=== PATIENT | male | born 1980 | race Hispanic/Latino ===

== ENCOUNTER 2020-01-02 16:43 | Emergency (ER) | payer OTHER ==
--- NOTE | 2020-01-02 17:59 | EDPHYS ---
Physician Documentation [facility] Name: Seferino Park Age: 39 yrs Sex: Male : 1980 Arrival Date: 01/02/2020 Time: 16:44 Bed 25 Private MD: ED Physician Karl Parham HPI: 01/02 21:26 This 39 yrs old Male presents to ER via Ambulatory with complaints of Vision tw4 Problem. 21:26 The patient is experiencing decreased vision, floaters, The patient sustained None. to tw4 the right eye. Onset: The symptoms/episode began/occurred today. Duration: the symptoms are continuous. Aggravated by nothing. Alleviated by nothing. Severity of symptoms: At their worst the symptoms were moderate in the emergency department the symptoms are unchanged. The patient has not experienced similar symptoms in the past. Historical: - Allergies: 16:50 No Known Allergies; hb - Home Meds: 16:50 amlodipine 10 mg tab 1 tab once daily [Active]; buspirone 10 mg Oral tab 1 tab 2 times hb per day [Active]; doxazosin 8 mg Oral tab 1 tab once daily [Active]; lisinopril 40 mg Oral tab 1 tab once daily [Active]; - PMHx: 16:50 Anxiety; Depression; Hyperlipidemia; Hypertension; hb - PSHx: 16:50 testicular repair; hb - Immunization history:: Adult Immunizations up to date. - Coronavirus screen:: The patient has NOT traveled to [place] in the past 14 days. The patient has NOT had contact with known/suspected case of Coronavirus? Proceed with normal triage procedures. - Social history:: Smoking status: Patient denies any tobacco usage or history of. - Ebola Screening: : No symptoms or risks identified at this time. ROS: 21:26 Constitutional: Negative for fever, chills, and weight loss. tw4 21:26 Cardiovascular: Negative for chest pain, palpitations, and edema, Respiratory: Negative for shortness of breath, cough, wheezing, and pleuritic chest pain, Abdomen/GI: Negative for abdominal pain, nausea, vomiting, diarrhea, and constipation, Back: Negative for injury and pain, MS/Extremity: Negative for injury and deformity. 21:26 Eyes: Positive for blurry vision, vision loss, visual disturbance, Negative for discharge, foreign body sensation, matting, pain, photophobia, redness, sunken appearance. Exam: 21:26 Visual Acuity: I have reviewed the nursing documentation. tw4 21:26 Constitutional: This is a well developed, well nourished patient who is awake, alert, and in no acute distress. Head/Face: Normocephalic, atraumatic. 21:26 Eyes: Pupils: equal, round, and reactive to light and accomodation, Extraocular movements: no acute changes, Conjunctiva: normal, Corneas: are normal, Sclera: no appreciated abnormality, Anterior chamber: normal, funduscopic exam reveals retinal detachment is noted, on the right. Vital Signs: 16:50 BP 142 / 110; Pulse 61; Resp 16; Temp 97.9; Pulse Ox 100% on R/A; Weight 136.08 kg; hb Height 6 ft. (182.88 cm); Pain 0/10; 17:15 BP 142 / 01; Pulse 61; Pulse Ox 99% on R/A; vc 17:45 BP 126 / 80; Pulse 59; Resp 15; Pulse Ox 99% on R/A; Pain 0/10; vc 16:50 Body Mass Index 40.69 (136.08 kg, 182.88 cm) hb Visual Acuity: 17:19 Left Eye Visual acuity 20/13, ; Both Eyes Visual acuity 20/15; With Lenses; Unable to vc read chart with right eye MDM: 16:57 Patient medically screened. tw4 21:26 Differential diagnosis: Corneal abrasion of Corneal ulcer of Foreign body in. Data tw4 reviewed: vital signs, nurses notes. Data interpreted: Pulse oximetry: Interpretation: normal. Counseling: I had a detailed discussion with the patient and/or guardian regarding: the historical points, exam findings, and any diagnostic results supporting the discharge/admit diagnosis. Physician consultation: Rebel Prasad MD regarding patient's condition, and will see patient in office, tomorrow. Special discussion: I discussed with the patient/guardian in detail that at this point there is no indication for admission to the hospital. It is understood, however, that if the symptoms persist or worsen the patient needs to return immediately for re-evaluation. Administered Medications: No medications were administered Disposition: 01/02/20 17:50 Discharged to Home. Impression: Other retinal detachments. - Condition is Stable. - Discharge Instructions: Retinal Detachment, Visual Disturbances. - Medication Reconciliation Form, Thank You Letter, Antibiotic Education, Prescription Opioid Use form. - Follow up: Rebel Prasad MD; When: Upon discharge from the Emergency Department; Reason: If symptoms return, Recheck today's complaints, Continuance of care, Re-evaluation by your physician. - Problem is new. - Symptoms have improved. Signatures: Andreina Mosley RN RN Karl Parham MD MD tw4 Lindsey Gustafson RN RN vc Corrections: (The following items were deleted from the chart) 17:58 17:50 01/02/2020 17:50 Discharged to Home. Impression: Other retinal detachments. vc Condition is Stable. Forms are Medication Reconciliation Form, Thank You Letter, Antibiotic Education, Prescription Opioid Use. Follow up: Rebel Prasad; When: Upon discharge from the Emergency Department; Reason: If symptoms return, Recheck today's complaints, Continuance of care, Re-evaluation by your physician. Problem is new. Symptoms have improved. tw4
--- NOTE | 2020-01-02 17:59 | ER ---
Nurse's Notes [facility] Name: Seferino Park Age: 39 yrs Sex: Male : 1980 Arrival Date: 01/02/2020 Time: 16:44 Bed 25 Private MD: Diagnosis: Other retinal detachments Presentation: 01/02 16:47 Presenting complaint: Patient states: "I had a floater in my right eye about an hour hb ago, then my vision became blurry in that eye. I saw an eye doctor for this a while back and she said I had something wrong with my retina but it wasn't bad enough for surgery yet." Denies pain. Transition of care: patient was not received from another setting of care. Onset of symptoms was January 02, 2020. Risk Assessment: Do you want to hurt yourself or someone else? Patient reports no desire to harm self or others. Initial Sepsis Screen: Does the patient meet any 2 criteria? No. Patient's initial sepsis screen is negative. Does the patient have a suspected source of infection? No. Patient's initial sepsis screen is negative. Care prior to arrival: None. 16:47 Method Of Arrival: Ambulatory hb 16:47 Acuity: ALEXIS 2 hb Triage Assessment: 17:23 General: Appears in no apparent distress. uncomfortable, Behavior is cooperative, vc appropriate for age, anxious. Pain: Denies pain. Historical: - Allergies: 16:50 No Known Allergies; hb - Home Meds: 16:50 amlodipine 10 mg tab 1 tab once daily [Active]; buspirone 10 mg Oral tab 1 tab 2 times hb per day [Active]; doxazosin 8 mg Oral tab 1 tab once daily [Active]; lisinopril 40 mg Oral tab 1 tab once daily [Active]; - PMHx: 16:50 Anxiety; Depression; Hyperlipidemia; Hypertension; hb - PSHx: 16:50 testicular repair; hb - Immunization history:: Adult Immunizations up to date. - Coronavirus screen:: The patient has NOT traveled to [place] in the past 14 days. The patient has NOT had contact with known/suspected case of Coronavirus? Proceed with normal triage procedures. - Social history:: Smoking status: Patient denies any tobacco usage or history of. - Ebola Screening: : No symptoms or risks identified at this time. Screenin:21 Abuse screen: Denies threats or abuse. Nutritional screening: No deficits noted. vc Tuberculosis screening: No symptoms or risk factors identified. Fall Risk None identified. Assessment: 17:24 General: Appears in no apparent distress. uncomfortable, Behavior is cooperative, vc appropriate for age, anxious. Pain: Denies pain. Neuro: No deficits noted. Cardiovascular: Patient's skin is warm and dry. Respiratory: Airway is patent Respiratory effort is even, unlabored, Respiratory pattern is regular, symmetrical. GI: No deficits noted. : No signs and/or symptoms were reported regarding the genitourinary system. EENT: Reports seeing floaters when he first awoke, now unable to see out of right eye. Patient states he can make out colors but that is it.. Derm: Skin temperature is warm. Musculoskeletal: Circulation, motion, and sensation intact. Capillary refill < 3 seconds, Range of motion: intact in all extremities. 17:45 Reassessment: Patient and/or family updated on plan of care and expected duration. Pain vc level reassessed. Patient is alert, oriented x 3, equal unlabored respirations, skin warm/dry/pink. Provider at bedside. Patient denies pain at this time. Vital Signs: 16:50 BP 142 / 110; Pulse 61; Resp 16; Temp 97.9; Pulse Ox 100% on R/A; Weight 136.08 kg; hb Height 6 ft. (182.88 cm); Pain 0/10; 17:15 BP 142 / 01; Pulse 61; Pulse Ox 99% on R/A; vc 17:45 BP 126 / 80; Pulse 59; Resp 15; Pulse Ox 99% on R/A; Pain 0/10; vc 16:50 Body Mass Index 40.69 (136.08 kg, 182.88 cm) hb Visual Acuity: 17:19 Left Eye Visual acuity 20/13, ; Both Eyes Visual acuity 20/15; With Lenses; Unable to vc read chart with right eye ED Course: 16:44 Patient arrived in ED. ag5 16:49 Triage completed. hb 16:50 Arm band placed on. hb 16:57 Kalr Parham MD is Attending Physician. tw4 17:05 Lindsey Gustafson RN is Primary Nurse. vc 17:23 Patient has correct armband on for positive identification. vc 17:49 No provider procedures requiring assistance completed. Patient did not have IV access vc during this emergency room visit. 17:50 Rebel Prasad MD is Referral Physician. tw4 Administered Medications: No medications were administered Outcome: 17:50 Discharge ordered by MD. domínguez 17:56 Discharged to home vc 17:56 Condition: good 17:56 Discharge instructions given to patient, Instructed on discharge instructions, follow up and referral plans. Demonstrated understanding of instructions, follow-up care. 17:58 Patient left the ED. vc Signatures: Andreina Mosley, RN RN Karl Parham MD MD tw4 Kaz Oliva ag5 Lindsey Gustafson RN RN
[2020-01-02 20:28] VITALS: TEMP 97.9
[2020-01-02 20:29] VITALS: O2SAT 99
[2020-01-02 20:31] VITALS: BP 126/80
== END 2020-01-02 17:58 | disposition home or self-care (01) ==
LOC: ER 16:43
DX: H33.8 Other retinal detachments (principal); I10 Essential (primary) hypertension; E78.5 Hyperlipidemia, unspecified; F41.8 Other specified anxiety disorders
CPT/HCPCS: 99282

== ENCOUNTER 2021-03-15 14:26 | Emergency (ER) | payer BC, OTHER ==
--- OUTSIDE RECORDS SUMMARY | 2021-03-15 14:29 | XMS REPORT | Continuity of Care Document ---
:1980 Author Organization [facility] t Address [address] [place] [address] Care Team Providers Name Role Phone Chely Nielsen NP Attending Clinician Problems This patient has no known problems. Allergies, Adverse Reactions, Alerts This patient has no known allergies or adverse reactions. Medications This patient has no known medications. Procedures This patient has no known procedures. Encounters Start End Encounter Admission Attending Care Care Encounter Source Date/Time Date/Time Type Type Clinicians Facility Department ID 2021-01-28 2021-01-28 Outpatient [facility] [id number] [facility] 2020-10-29 2020-10-29 Outpatient [facility] [id number] [facility] 2020-09-27 2020-09-27 Outpatient [facility] [id number] [facility] 2020-06-10 2020-06-10 Emergency [facility] [id number] 11:06:15 11:47:00 [facility] [id number] [place] [id number] [place] [id number] Results This patient has no known results.
--- NOTE | 2021-03-15 15:35 | ER ---
Nurse's Notes [facility] Name: Seferino Park Jr Age: 41 yrs Sex: Male : 1980 Arrival Date: 03/15/2021 Time: 14:27 Bed 25 Private MD: Jad Torre Diagnosis: Anxiety disorder, unspecified Presentation: 03/15 14:36 Chief complaint: Anxiety x 3 days. Denies SOB/pain. Coronavirus screen: At this time, hb the client does not indicate any symptoms associated with coronavirus-19. Ebola Screen: No symptoms or risks identified at this time. Initial Sepsis Screen: Does the patient meet any 2 criteria? No. Patient's initial sepsis screen is negative. Does the patient have a suspected source of infection? No. Patient's initial sepsis screen is negative. Risk Assessment: Do you want to hurt yourself or someone else? Patient reports no desire to harm self or others. Onset of symptoms was March 13, 2021. 14:36 Method Of Arrival: Ambulatory hb 14:36 Acuity: ALEXIS 3 hb Historical: - Allergies: 14:39 No Known Allergies; hb - Home Meds: 14:39 amlodipine 10 mg tab 1 tab once daily [Active]; doxazosin 8 mg Oral tab 1 tab once hb daily [Active]; lisinopril 40 mg Oral tab 1 tab once daily [Active]; Bystolic 10 mg oral tab 1 tab once daily [Active]; Pravachol 20 mg Oral tab 1 tab once daily [Active]; amitriptyline 10 mg Oral tab [Active]; - PMHx: 14:39 Anxiety; Depression; Hyperlipidemia; Hypertension; hb - PSHx: 14:39 testicular repair; hb - Immunization history:: Adult Immunizations up to date. - Social history:: Smoking status: Patient denies any tobacco usage or history of. Screenin:59 Abuse screen: Denies threats or abuse. Nutritional screening: No deficits noted. kg Tuberculosis screening: No symptoms or risk factors identified. Fall Risk None identified. No fall in past 12 months (0 pts). No secondary diagnosis (0 pts). No IV (0 pts). Ambulatory Aid- None/Bed Rest/Nurse Assist (0 pts). Gait- Normal/Bed Rest/Wheelchair (0 pts) Mental Status- Oriented to own ability (0 pts). Total Marc Fall Scale indicates No Risk (0-24 pts). Assessment: 15:15 General: Appears in no apparent distress. Behavior is calm, cooperative, appropriate kg for age, quiet. Pain: Denies pain. Neuro: No deficits noted. Neuro: Reports Pt states, "I have a lot of anxiety right now". Cardiovascular: No deficits noted. Cardiovascular: Heart tones S1 S2. Respiratory: No deficits noted. Breath sounds are clear bilaterally. GI: No deficits noted. : No deficits noted. EENT: No deficits noted. Derm: No deficits noted. Musculoskeletal: No deficits noted. Vital Signs: 14:36 BP 159 / 110; Pulse 83; Resp 18; Temp 98.9; Pulse Ox 100% ; Pain 0/10; hb 16:06 BP 130 / 80; Pulse 65; Resp 18; Pulse Ox 99% on R/A; kg ED Course: 14:27 Patient arrived in ED. am2 14:27 Jad Torre DO is Private Physician. am2 14:37 Triage completed. hb 14:39 Arm band placed on. hb 14:46 Anusha Parker FNP-C is PHCP. kb 14:46 George Simon MD is Attending Physician. kb 15:08 Rosie Angulo is Primary Nurse. kg 16:02 Patient has correct armband on for positive identification. Bed in low position. Call kg light in reach. Side rails up X 1. 16:03 No provider procedures requiring assistance completed. Patient did not have IV access kg during this emergency room visit. Administered Medications: 15:10 Drug: hydrOXYzine 25 mg Route: PO; kg 16:14 Follow up: Response: No adverse reaction; Marked relief of symptoms kg Outcome: 15:35 Discharge ordered by . kb 16:03 Discharged to home ambulatory. kg 16:03 Condition: good 16:03 Discharge instructions given to patient, Instructed on discharge instructions, follow up and referral plans. Demonstrated understanding of instructions, follow-up care. 16:12 Demonstrated understanding of medications, Prescriptions given X 1. kg 16:15 Patient left the ED. kg Signatures: Anusha Parker FNP-C FNP-Andreina Owen RN RN [facility] am2 Rosie Angulo kg
--- NOTE | 2021-03-15 15:35 | EDPHYS ---
Physician Documentation [facility] Name: Seferino Park Jr Age: 41 yrs Sex: Male : 1980 Arrival Date: 03/15/2021 Time: 14:27 Bed 25 Private MD: Jad Torre ED Physician George Simon HPI: 03/15 15:53 This 41 yrs old Male presents to ER via Ambulatory with complaints of Anxiety. kb 15:53 The patient presents to the emergency department with anxiety. Onset: The kb symptoms/episode began/occurred 3 day(s) ago. Past psychiatric history: Psychiatric medications include: Elavil. Associated signs and symptoms: Pertinent positives; anxiety. Severity of symptoms: At their worst the symptoms were moderate in the emergency department the symptoms are unchanged. The patient has experienced similar episodes in the past, several times. The patient has not recently seen a physician. Pt reports he has been under a lot of stress lately because he was out of work for a few months and is now having to live with his parents with his girlfriend and 2 toddlers. States he has been having more anxiety over the last 3 days and the more he thinks about it the more worked up he gets so he wanted to just get checked out. . Historical: - Allergies: 14:39 No Known Allergies; hb - Home Meds: 14:39 amlodipine 10 mg tab 1 tab once daily [Active]; doxazosin 8 mg Oral tab 1 tab once hb daily [Active]; lisinopril 40 mg Oral tab 1 tab once daily [Active]; Bystolic 10 mg oral tab 1 tab once daily [Active]; Pravachol 20 mg Oral tab 1 tab once daily [Active]; amitriptyline 10 mg Oral tab [Active]; - PMHx: 14:39 Anxiety; Depression; Hyperlipidemia; Hypertension; hb - PSHx: 14:39 testicular repair; hb - Immunization history:: Adult Immunizations up to date. - Social history:: Smoking status: Patient denies any tobacco usage or history of. ROS: 15:52 Constitutional: Negative for fever, chills, and weight loss, Cardiovascular: Negative kb for chest pain, palpitations, and edema, Respiratory: Negative for shortness of breath, cough, wheezing, and pleuritic chest pain, Abdomen/GI: Negative for abdominal pain, nausea, vomiting, diarrhea, and constipation, MS/Extremity: Negative for injury and deformity, Skin: Negative for injury, rash, and discoloration, Neuro: Negative for headache, weakness, numbness, tingling, and seizure. 15:52 Psych: Positive for anxiety. Exam: 15:52 Constitutional: This is a well developed, well nourished patient who is awake, alert, kb and in no acute distress. Head/Face: Normocephalic, atraumatic. Cardiovascular: Regular rate and rhythm with a normal S1 and S2. No gallops, murmurs, or rubs. No pulse deficits. Respiratory: Respirations even and unlabored. No increased work of breathing, no retractions or nasal flaring. Abdomen/GI: Soft, non-tender. No distention Skin: Warm, dry with normal turgor. Normal color. MS/ Extremity: Pulses equal, no cyanosis. Neurovascular intact. Full, normal range of motion. Neuro: Awake and alert, GCS 15, oriented to person, place, time, and situation. Moves all extremities. Normal gait. 15:52 Constitutional: The patient appears anxious. 15:59 ECG was reviewed by the Attending Physician. kb Vital Signs: 14:36 BP 159 / 110; Pulse 83; Resp 18; Temp 98.9; Pulse Ox 100% ; Pain 0/10; hb 16:06 BP 130 / 80; Pulse 65; Resp 18; Pulse Ox 99% on R/A; kg MDM: 14:47 Patient medically screened. kb 15:51 Data reviewed: vital signs, nurses notes. Data interpreted: Pulse oximetry: on room air kb is 100 %. Interpretation: normal. Counseling: I had a detailed discussion with the patient and/or guardian regarding: the historical points, exam findings, and any diagnostic results supporting the discharge/admit diagnosis, the need for outpatient follow up, a family practitioner, to return to the emergency department if symptoms worsen or persist or if there are any questions or concerns that arise at home. 03/15 15:04 Order name: EKG; Complete Time: 15:04 kb 03/15 15:04 Order name: EKG - Nurse/Tech; Complete Time: 15:57 kb EC:59 Rate is 66 beats/min. Rhythm is regular. QRS [place] is Normal. MI interval is normal at kb 162 msec. QRS interval is normal at 84 msec. QT interval is normal at 388 msec. Administered Medications: 15:10 Drug: hydrOXYzine 25 mg Route: PO; kg 16:14 Follow up: Response: No adverse reaction; Marked relief of symptoms kg Disposition: 03/16 08:05 Co-signature as Attending Physician, George Simon MD I agree with the assessment and [facility] plan of care. Disposition: 03/15/21 15:35 Discharged to Home. Impression: Anxiety disorder, unspecified. - Condition is Stable. - Discharge Instructions: Panic Attacks, [id number], Generalized Anxiety Disorder. - Prescriptions for Hydroxyzine HCl 25 mg Oral Tablet - take 1 tablet by ORAL route every 6 hours As needed; 12 tablet. - Medication Reconciliation Form, Thank You Letter, Antibiotic Education, Prescription Opioid Use form. - Follow up: Emergency Department; When: As needed; Reason: Worsening of condition. Follow up: Private Physician; When: 2 - 3 days; Reason: Recheck today's complaints, Continuance of care, Re-evaluation by your physician. Signatures: Anusha Parker, CHETAN LUCAS-George Malone MD MD [facility] Andreina Mosley, DANNIELLE RN Rosie Angulo Corrections: (The following items were deleted from the chart) 03/15 16:15 15:35 03/15/2021 15:35 Discharged to Home. Impression: Anxiety disorder, unspecified. kg Condition is Stable. Forms are Medication Reconciliation Form, Thank You Letter, Antibiotic Education, Prescription Opioid Use. Follow up: Emergency Department; When: As needed; Reason: Worsening of condition. Follow up: Private Physician; When: 2 - 3 days; Reason: Recheck today's complaints, Continuance of care, Re-evaluation by your physician. kb
[2021-03-15] MEDS ORDERED: hydrOXYzine HCL 25 MG TAB ONE (15:36)
[2021-03-15 16:45] VITALS: TEMP 98.9
[2021-03-15 16:47] VITALS: BP 130/80; O2SAT 99
--- NOTE | 2021-03-16 07:24 | EKG ---
Test Date: 2021-03-15 Test Time: 15:23:49 Recruiter Manager: VITO Nice MEASUREMENT RESULTS: Intervals: Rate: 66 ID: [id number] QRSD: 84 QT: 388 QTc: 406 [place]: P: 0 ID: [id number] QRS: 22 T: 4 INTERPRETIVE STATEMENTS: Normal sinus rhythm Anterior infarct, age undetermined Abnormal ECG Compared to ECG 12/03/2016 21:25:59 No significant changes Electronically Signed On 03-16-21 07:21:58 CDT by Cameron Garcia
== END 2021-03-15 16:15 | disposition home or self-care (01) ==
LOC: ER 14:26
DX: F41.9 Anxiety disorder, unspecified (principal); F32.9 Major depressive disorder, single episode, unspecified; E78.5 Hyperlipidemia, unspecified; I10 Essential (primary) hypertension
CPT/HCPCS: 93005; 99283

== ENCOUNTER 2021-12-03 11:17 | Emergency (ER) | payer BC ==
--- OUTSIDE RECORDS SUMMARY | 2021-12-03 11:19 | XMS REPORT | Continuity of Care Document ---
:1980 Author Organization Formerly [facility] t Address [address] [place] [address] Care Team Providers Name Role Phone Chely Nielsen NP Attending Clinician Payers Payer Name Policy Type Policy Number Effective Date Expiration Date S ource Problems Condition Condition Condition Status Onset Resolution Last Treating Co mments Source Name Details Category Date Date Treatment Clinician Date No known No known Disease Unive rs active active ity of problems problems [facility] Allergies, Adverse Reactions, Alerts Allergy Allergy Status Severity Reaction(s) Onset Inactive Treating Comm ents Source Name Type Date Date Clinician NO KNOWN Drug Active Univers ALLERGIE Class it of [facility] Social History Social Habit Start Date Stop Date Quantity Comments Source [facility] to [facility]2 [facility] Smoking Status Start Date Stop Date Source Unknown if ever smoked Universit y [facility] Medications Ordered Filled Start Stop Current Ordering Indication Dosage Frequency Signature Comments Components Source Medication Medication Date Date Medication? Clinician (SIG) Name Name No known No Univers medications [facility] Vital Signs Vital Name Observation Time Observation Value Comments Source Systolic blood 2020-06-10 16:29:00 147 mm[Hg] Univer sity of pressure [facility] Diastolic blood 2020-06-10 16:29:00 101 mm[Hg] Unive rsity of pressure [facility] Heart rate 2020-06-10 16:29:00 79 /min Universi ty [facility] Respiratory rate 2020-06-10 16:29:00 17 /min Univ ersity of [facility] Oxygen saturation in 2020-06-10 16:29:00 96 /min University of Arterial blood by [facility] Pulse oximetry Branch Body temperature 2020-06-10 15:56:00 38.28 Zoe [facility] ersity of [facility] Body height 2020-06-10 15:56:00 182.9 cm [facility] Body weight 2020-06-10 15:56:00 136.079 kg [facility] BMI 2020-06-10 15:56:00 40.69 kg/m2 Universi ty of [facility] Branch Systolic blood 2020-06-10 16:29:00 147 mm[Hg] Univer sity of pressure [facility] Branch Diastolic blood 2020-06-10 16:29:00 101 mm[Hg] Unive rsity of pressure [facility] Heart rate 2020-06-10 16:29:00 79 /min Universi ty of [facility] Respiratory rate 2020-06-10 16:29:00 17 /min [facility] ersity of [facility] Oxygen saturation in 2020-06-10 16:29:00 96 /min University of Arterial blood by [facility] Pulse oximetry Branch Body temperature 2020-06-10 15:56:00 38.28 Zoe [facility] ersity of [facility] Body height 2020-06-10 15:56:00 182.9 cm [facility] Body weight 2020-06-10 15:56:00 136.079 kg [facility] BMI 2020-06-10 15:56:00 40.69 kg/m2 Universi ty of [facility] Procedures Procedure Date / Time Performed Performing Clinician [facility] NOTICE OF PRIVACY 2020-06-10 15:39:42 Doctor Unassigned, No [facility] [place] [facility] Name [facility] CONSENT/REFUSAL FOR 2020-06-10 15:39:21 Doctor Unassigned, No [facility] AND Name Medical Branch TREATMENT Encounters Start End Encounter Admission Attending Care Care Encounter Source Date/Time Date/Time Type Type Clinicians Facility Department ID 2021-11-13 2021-11-13 ambulatory [facility] [id number] 2021-11-12 2021-11-12 ambulatory [facility] [id number] [facility] 2021-10-15 2021-10-15 ambulatory [facility] [id number] [facility] 2021-09-04 2021-09-04 Outpatient [facility] [id number] [facility] 2021-05-31 2021-05-31 Outpatient [facility] [id number] [facility] 2021-03-22 2021-03-22 Outpatient [facility] [id number] [facility] 2021-03-18 2021-03-18 Outpatient [facility] [id number] [facility] 2021-01-28 2021-01-28 Outpatient [facility] [id number] [facility] 2020-10-29 2020-10-29 Outpatient [facility] [id number] [facility] 2020-09-27 2020-09-27 Outpatient [facility] [id number] [facility] 2020-06-10 2020-06-10 [place] [id number] Univers 11:06:15 11:47:00 [id number] [id number] [facility] [id number] [facility] 084 Branch 2020-06-10 2020-06-10 Emergency [place], [facility] [id number] 11:06:15 11:47:00 [place] [id number] [place] [id number] [place] [id number] 2020-06-10 2020-06-10 Emergency X [facility] ERT [id number] Univers 10:39:00 10:39:00 [facility] Results This patient has no known results.
[2021-12-03] MEDS ORDERED: NA CHLORIDE 0.9% 1,000 ML ONE (12:33)
[2021-12-03 12:48] LABS: Hematocrit 41.5 % (39.6-49.0); Lymphocytes % 31.6 % (15.3-44.8); MPV 7.7 fL (7.6-11.3); RBC Red Blood Cell Count 4.72 M/uL (4.33-5.43)
[2021-12-03 12:49] LABS: Protime INR 1.03
[2021-12-03] MEDS ORDERED: ASPIRIN 81 MG CHEWABLE TABLET ONE (12:54)
--- NOTE | 2021-12-03 13:04 | RAD REPORT ---
EXAM DESCRIPTION: Keith Single View12/03/2021 12:57 pm CLINICAL HISTORY: cough COMPARISON: none FINDINGS: The lungs appear clear of acute infiltrate. The heart is normal size IMPRESSION: No acute abnormalities displayed
[2021-12-03 13:10] LABS: ALT/SGPT 43 U/L (12-78); AST/SGOT 21 U/L (15-37); Albumin 3.8 g/dL (3.4-5.0); Alkaline Phosphatase 99 U/L (45-117); BUN Blood Urea Nitrogen 16 mg/dL (7-18); Bicarbonate 28 mmol/L (21-32); Bilirubin Direct < 0.1 mg/dL (0-0.2); Bilirubin Total 0.4 mg/dL (0.2-1.0); Glucose Level 107 mg/dL (74-106); Lipase 50 U/L (73-393); Magnesium 2.2 mg/dL (1.8-2.4); NT PRO-BNP 47 pg/mL (<125); Protein, Total 8.5 g/dL (6.4-8.2); Sodium Level 136 mmol/L (136-145)
--- NOTE | 2021-12-03 14:22 | ER ---
Nurse's Notes [facility] Name: Seferino Park Jr Age: 41 yrs Sex: Male : 1980 Arrival Date: 12/03/2021 Time: 11:25 Bed 26 Private MD: Diagnosis: Palpitations;Dizziness and giddiness;Obesity, unspecified Presentation: 12/03 11:35 Chief complaint: Patient states: Dizziness when ambulating and feeling like heart is ww beating out of his chest at times. Patient states he isnt sleeping well and has been under stress at home. Coronavirus screen: Vaccine status: Patient reports receiving the 2nd dose of the covid vaccine. Client denies travel out of the [place] in the last 14 days. Ebola Screen: Patient negative for fever greater than or equal to 101.5 degrees Fahrenheit, and additional compatible Ebola Virus Disease symptoms Patient denies exposure to infectious person. Patient denies travel to an Ebola-affected area in the 21 days before illness onset. Initial Sepsis Screen: Does the patient meet any 2 criteria? No. Patient's initial sepsis screen is negative. Does the patient have a suspected source of infection? No. Patient's initial sepsis screen is negative. Risk Assessment: Do you want to hurt yourself or someone else? Patient reports no desire to harm self or others. Onset of symptoms was December 03, 2021. 11:35 Method Of Arrival: Ambulatory ww 11:35 Acuity: ALEXIS 3 ww Triage Assessment: 11:35 General: Appears in no apparent distress. comfortable, Behavior is calm, cooperative, ww appropriate for age. Pain: Denies pain. EENT: Reports dizziness. Neuro: Level of Consciousness is awake, alert, obeys commands, Oriented to person, place, time, situation, Speech is normal, Reports dizziness. Cardiovascular: No deficits noted. Denies chest pain, Capillary refill < 3 seconds Patient's skin is warm and dry. Respiratory: Airway is patent Respiratory effort is even, unlabored, Respiratory pattern is regular, symmetrical. GI: No deficits noted. No signs and/or symptoms were reported involving the gastrointestinal system. : No deficits noted. No signs and/or symptoms were reported regarding the genitourinary system. Derm: Skin is intact, Skin is pink, warm \T\ dry. Musculoskeletal: No deficits noted. No signs and/or symptoms reported regarding the musculoskeletal system. Circulation, motion, and sensation intact. Historical: - Allergies: 11:37 No Known Allergies; ww - Home Meds: 11:37 amitriptyline 10 mg Oral tab [Active]; amlodipine 10 mg tab 1 tab once daily [Active]; ww Pravachol 20 mg Oral tab 1 tab once daily [Active]; nebivolol 20 mg oral tab 1 tab once daily [Active]; lisinopril-hydrochlorothiazide 20-25 mg oral tab 1 tab once daily [Active]; - PMHx: 11:37 Anxiety; Depression; Hypertension; Hyperlipidemia; ww - PSHx: 11:37 retinal detachment SX x 2; ww - Immunization history:: Client reports receiving the 2nd dose of the Covid vaccine. - Social history:: Smoking status: Patient denies any tobacco usage or history of. Screenin:41 Abuse screen: Denies threats or abuse. Denies injuries from another. Nutritional ww screening: No deficits noted. Tuberculosis screening: No symptoms or risk factors identified. Fall Risk None identified. Assessment: 12:02 General: Appears in no apparent distress. comfortable, Behavior is anxious. Pain: ab2 Denies pain. Neuro: No deficits noted. Level of Consciousness is awake, alert, obeys commands, Oriented to person, place, time, situation, Appropriate for age Sheet Folder are equal bilaterally Moves all extremities. Gait is steady, Speech is normal, Facial symmetry appears normal, Reports dizziness. Cardiovascular: No deficits noted. Denies chest pain, shortness of breath, Heart tones S1 S2 present Patient's skin is warm and dry. Rhythm is sinus rhythm Chest pain is denied. Respiratory: No deficits noted. Airway is patent Breath sounds are clear bilaterally. GI: No deficits noted. No signs and/or symptoms were reported involving the gastrointestinal system. Abdomen is round non-distended, Abd is soft and non tender Patient currently denies abdominal pain. : No deficits noted. No signs and/or symptoms were reported regarding the genitourinary system. EENT: No deficits noted. No signs and/or symptoms were reported regarding the EENT system. Derm: No deficits noted. No signs and/or symptoms reported regarding the dermatologic system. Musculoskeletal: No deficits noted. No signs and/or symptoms reported regarding the musculoskeletal system. 14:18 Reassessment: Patient states symptoms have improved. Pt resting in bed awaiting results ab2 from doctor. Vital Signs: 11:35 BP 137 / 97; Pulse 60; Resp 18; Temp 96.9; Pulse Ox 100% on R/A; Weight 136.08 kg; ww Height 6 ft. 0 in. (182.88 cm); Pain 0/10; 12:04 BP 132 / 89; Pulse 55; Resp 18; Pulse Ox 98% on R/A; ab2 13:02 BP 141 / 78; Pulse 69; Resp 16; Pulse Ox 100% on R/A; ab2 14:00 BP 118 / 79; Pulse 55; Resp 16; Pulse Ox 99% on R/A; ab2 11:35 Body Mass Index 40.69 (136.08 kg, 182.88 cm) ww ED Course: 11:25 Patient arrived in ED. am2 11:35 Arm band placed on right wrist. ww 11:37 Triage completed. ww 12:01 Patient has correct armband on for positive identification. Placed in gown. Bed in low ww position. Call light in reach. Side rails up X 1. machine operator replanter on. Pulse ox on. NIBP on. 12:02 Reid Myers is Primary Nurse. ab2 12:03 No provider procedures requiring assistance completed. ab2 12:21 George Simon MD is Attending Physician. jody 12:44 Inserted saline lock: 18 gauge in right antecubital area, using aseptic technique. ab2 Blood collected. 12:45 Initial lab(s) drawn, by ED staff, sent to lab. EKG done, by ED staff, reviewed by marcela Simon MD. 12:57 XRAY Chest (1 view) In Process Unspecified. EDMS 14:22 Cameron Garcia MD is Referral Physician. jody 14:56 IV discontinued, intact, bleeding controlled, No redness/swelling at site. Pressure jl7 dressing applied. Administered Medications: 12:43 Drug: NS 0.9% 1000 ml Route: IV; Rate: 1 bolus; Site: right antecubital; ab2 12:55 Drug: Aspirin Chewable Tablet 162 mg Route: PO; ab2 Outcome: 14:22 Discharge ordered by . jody 14:55 Discharged to home ambulatory. jl7 14:55 Condition: stable 14:55 Discharge instructions given to patient, Instructed on discharge instructions, follow up and referral plans. Demonstrated understanding of instructions, follow-up care. 14:56 Patient left the ED. jl7 Signatures: Dispatcher [employer] George Bauer MD MD cha Leal, Jahala RN RN jl7 Rachelle Tracy am2 Koki De Los Santos, RN RN ww Reid Myers2 Corrections: (The following items were deleted from the chart) 11:40 11:35 Pulse 60bpm; Resp 18bpm; Pulse Ox 100% RA; Temp 96.9F; 136.08 kg; Height 6 ft. 0 ww in.; BMI: 40.6; Pain 0/10; ww
--- NOTE | 2021-12-03 14:22 | EDPHYS ---
Physician Documentation [facility] Name: Seferino Park Jr Age: 41 yrs Sex: Male : 1980 Arrival Date: 12/03/2021 Time: 11:25 Bed 26 Private MD: CHIQUI Physician George Simon HPI: 12/03 12:48 This 41 yrs old Male presents to ER via Ambulatory with complaints of jdoy Dizziness, sweats. 12:48 The patient presents with dizziness, generalized weakness. Onset: The symptoms/episode jody began/occurred 1 day(s) ago. Context: occurred at home. 12:49 The patient presents with a history of heart racing. Context: The symptoms occur with jody light activity. Duration: The patient or guardian reports multiple episodes, with no pattern. Modifying factors: The symptoms are aggravated by nothing. The symptoms are alleviated by nothing. Modifying factors: The symptoms are alleviated by nothing, the symptoms are aggravated by nothing. Associated signs and symptoms: Pertinent positives: palpitations. Severity of symptoms: At their worst the symptoms were mild in the emergency department the symptoms are unchanged. Associated signs and symptoms: Pertinent positives: lightheadedness. Patient's baseline: Neuro: alert and fully oriented. Historical: - Allergies: 11:37 No Known Allergies; ww - Home Meds: 11:37 amitriptyline 10 mg Oral tab [Active]; amlodipine 10 mg tab 1 tab once daily [Active]; ww Pravachol 20 mg Oral tab 1 tab once daily [Active]; nebivolol 20 mg oral tab 1 tab once daily [Active]; lisinopril-hydrochlorothiazide 20-25 mg oral tab 1 tab once daily [Active]; - PMHx: 11:37 Anxiety; Depression; Hypertension; Hyperlipidemia; ww - PSHx: 11:37 retinal detachment SX x 2; ww - Immunization history:: Client reports receiving the 2nd dose of the Covid vaccine. - Social history:: Smoking status: Patient denies any tobacco usage or history of. ROS: 12:50 Constitutional: Negative for fever, chills, and weight loss, Eyes: Negative for injury, jody pain, redness, and discharge, ENT: Negative for injury, pain, and discharge, Neck: Negative for injury, pain, and swelling, Respiratory: Negative for shortness of breath, cough, wheezing, and pleuritic chest pain, Abdomen/GI: Negative for abdominal pain, nausea, vomiting, diarrhea, and constipation, Back: Negative for injury and pain, : Negative for injury, bleeding, discharge, and swelling, MS/Extremity: Negative for injury and deformity, Skin: Negative for injury, rash, and discoloration, Neuro: Negative for headache, weakness, numbness, tingling, and seizure, Psych: Negative for depression, anxiety, suicide ideation, homicidal ideation, and hallucinations, Allergy/Immunology: Negative for hives, rash, and allergies, Endocrine: Negative for neck swelling, polydipsia, polyuria, polyphagia, and marked weight changes. 12:50 Cardiovascular: Positive for palpitations. Exam: 12:50 Constitutional: This is a well developed, well nourished patient who is awake, alert, jody and in no acute distress. Head/Face: Normocephalic, atraumatic. Eyes: Pupils equal round and reactive to light, extra-ocular motions intact. Lids and lashes normal. Conjunctiva and sclera are non-icteric and not injected. Cornea within normal limits. Periorbital areas with no swelling, redness, or edema. ENT: Nares patent. No nasal discharge, no septal abnormalities noted. Tympanic membranes are normal and external auditory canals are clear. Oropharynx with no redness, swelling, or masses, exudates, or evidence of obstruction, uvula midline. Mucous membranes moist. Neck: Trachea midline, no thyromegaly or masses palpated, and no cervical lymphadenopathy. Supple, full range of motion without nuchal rigidity, or vertebral point tenderness. No Meningismus. Chest/axilla: Normal chest wall appearance and motion. Nontender with no deformity. No lesions are appreciated. Cardiovascular: Regular rate and rhythm with a normal S1 and S2. No gallops, murmurs, or rubs. Normal PMI, no JVD. No pulse deficits. Respiratory: Lungs have equal breath sounds bilaterally, clear to auscultation and percussion. No rales, rhonchi or wheezes noted. No increased work of breathing, no retractions or nasal flaring. Abdomen/GI: Soft, non-tender, with normal bowel sounds. No distension or tympany. No guarding or rebound. No evidence of tenderness throughout. Back: No spinal tenderness. No costovertebral tenderness. Full range of motion. Male : Normal genitalia with no discharge or lesions. Skin: Warm, dry with normal turgor. Normal color with no rashes, no lesions, and no evidence of cellulitis. MS/ Extremity: Pulses equal, no cyanosis. Neurovascular intact. Full, normal range of motion. Neuro: Awake and alert, GCS 15, oriented to person, place, time, and situation. Cranial nerves II-XII grossly intact. Motor strength 5/5 in all extremities. Sensory grossly intact. Cerebellar exam normal. Normal gait. Psych: Awake, alert, with orientation to person, place and time. Behavior, mood, and affect are within normal limits. 12:50 Musculoskeletal/extremity: Extremities: all appear grossly normal, with no appreciated pain with palpation, ROM: intact in all extremities, full active range of motion, full passive range of motion, Circulation is intact in all extremities. Sensation intact. Compartment Syndrome exam of affected extremity: is normal. Joints: All joints appear normal with full range of motion. Weight bearing: can bear weight with assistance only, DVT Exam: No signs of deep vein thrombosis. no pain, no swelling, no tenderness, negative Homans' sign noted on exam, no appreciated bluish discoloration, no erythema, no increased warmth. 12:56 ECG was reviewed by the Attending Physician. [facility] Vital Signs: 11:35 BP 137 / 97; Pulse 60; Resp 18; Temp 96.9; Pulse Ox 100% on R/A; Weight 136.08 kg; ww Height 6 ft. 0 in. (182.88 cm); Pain 0/10; 12:04 BP 132 / 89; Pulse 55; Resp 18; Pulse Ox 98% on R/A; ab2 13:02 BP 141 / 78; Pulse 69; Resp 16; Pulse Ox 100% on R/A; ab2 14:00 BP 118 / 79; Pulse 55; Resp 16; Pulse Ox 99% on R/A; ab2 11:35 Body Mass Index 40.69 (136.08 kg, 182.88 cm) ww MDM: 12:22 Patient medically screened. jody 12:52 Differential diagnosis: arrythmia, dehydration. Differential diagnosis: cardiac jody arrhythmia, generalized weakness, GI bleed, hypovolemia, idiopathic dizziness, vertigo. Data reviewed: vital signs, nurses notes, lab test result(s), EKG, radiologic studies, plain films. Data interpreted: quality assurance monitor body: rate is 55 beats/min, rhythm is regular, Pulse oximetry: on room air. Counseling: I had a detailed discussion with the patient and/or guardian regarding: the historical points, exam findings, and any diagnostic results supporting the discharge/admit diagnosis, lab results, radiology results, the need for outpatient follow up, for definitive care, a bitumastic applier, a family practitioner. 12/03 12:21 Order name: Basic Metabolic Panel; Complete Time: 13:39 [facility] 12/03 12:21 Order name: CBC with Diff; Complete Time: 13:39 [facility] 12/03 12:21 Order name: LFT's; Complete Time: 13:39 [facility] 12/03 12:21 Order name: Magnesium; Complete Time: 13:39 [facility] 12/03 12:21 Order name: NT PRO-BNP; Complete Time: 13:39 [facility] 12/03 12:21 Order name: PT-INR; Complete Time: 13:39 [facility] 12/03 12:21 Order name: Troponin HS; Complete Time: 13:39 [facility] 12/03 12:21 Order name: Lipase; Complete Time: 13:39 [facility] 12/03 12:53 Order name: DD; Complete Time: 14:21 bd 12/03 12:21 Order name: XRAY Chest (1 view); Complete Time: 13:39 [facility] 12/03 12:21 Order name: EKG; Complete Time: 12:22 [facility] 12/03 12:21 Order name: Cardiac monitoring; Complete Time: 12:42 12/03 12:21 Order name: EKG - Nurse/Tech; Complete Time: 12:44 [facility] 12/03 12:21 Order name: IV Saline Lock; Complete Time: 12:44 [facility] 12/03 12:21 Order name: Labs collected and sent; Complete Time: 12:44 [facility] 12/03 12:21 Order name: O2 Per Protocol; Complete Time: 12:44 [facility] 12/03 12:21 Order name: O2 Sat Monitoring; Complete Time: 12:44 [facility] EC:56 Rate is 59 beats/min. Rhythm is regular. QRS [place] is Normal. [place] interval is normal. QRS jody interval is normal. QT interval is normal. No Q waves. T waves are Normal. No ST changes noted. Clinical impression: Normal ECG and No evidence of ischemia. Interpreted by me. Reviewed by me. Administered Medications: 12:43 Drug: NS 0.9% 1000 ml Route: IV; Rate: 1 bolus; Site: right antecubital; ab2 12:55 Drug: Aspirin Chewable Tablet 162 mg Route: PO; ab2 Disposition Summary: 12/03/21 14:22 Discharge Ordered Location: Home jody Problem: new jody Symptoms: have improved jody Condition: Stable jody Diagnosis - Palpitations jody - Dizziness and giddiness jody - Obesity, unspecified jody Followup: jody - With: Private Physician - When: 2 - 3 days - Reason: Recheck today's complaints, Continuance of care, Re-evaluation by your physician Followup: jody - With: - When: 2 - 3 days - Reason: Recheck today's complaints, Re-evaluation by your physician Discharge Instructions: - Discharge Summary Sheet jody - Dizziness jody - Obesity, Adult jody - Palpitations jody - Aspirin and Your Heart jody - Palpitations, Ogpb-[id number]-Vuff jody - Dizziness, [id number]-[id number] jody Forms: - Medication Reconciliation Form jody - Thank You Letter jody - Antibiotic Education jody - Prescription Opioid Use jody Signatures: Dispatcher [employer] EDGeorge Schofield MD MD cha Wood, Whitney, RN RN Reid Quinones ab2 Corrections: (The following items were deleted from the chart) 12:30 12:22 LACTATE+C.LAB.BRZ ordered. EDMS EDMS 12:30 12:22 PCT+C.LAB.BRZ ordered. EDMS EDMS 12:30 12:22 BLOOD CULTURE*+BA.LAB.BRZ ordered. EDMS EDMS
[2021-12-03 15:03] VITALS: TEMP 96.9
[2021-12-03 15:07] VITALS: BP 118/79; O2SAT 99
--- NOTE | 2021-12-05 03:55 | EKG ---
Test Date: 2021-12-03 Test Time: 12:36:35 Quality Assurance Coach: BONIFACIO MEASUREMENT RESULTS: Intervals: Rate: 59 MT: 162 QRSD: 104 QT: 454 QTc: 449 [place]: P: 11 MT: 162 QRS: 34 T: 16 INTERPRETIVE STATEMENTS: Sinus bradycardia Septal infarct, age undetermined Abnormal ECG Compared to ECG 03/15/2021 15:23:49 Sinus rhythm no longer present Myocardial infarct finding still present Electronically Signed On 12-05-21 03:54:19 SOFTWARE ENGINEER by Cameron Garcia
== END 2021-12-03 14:56 | disposition home or self-care (01) ==
LOC: ER 11:17
DX: R42 Dizziness and giddiness (principal); E66.9 Obesity, unspecified; I10 Essential (primary) hypertension; F41.8 Other specified anxiety disorders
CPT/HCPCS: 93005; 85025; 80048; 36415; 83735; 85610; 85379; 80076; 84484; 83690; 83880; 71045; 99284; J7030

== ENCOUNTER 2023-07-05 20:32 | Emergency (ER) | payer BC ==
--- OUTSIDE RECORDS SUMMARY | 2023-07-05 20:36 | XMS REPORT | Continuity of Care Document ---
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 Attending Clinician Payers Payer Name Policy Type Policy Number Effective Date Expiration Date S ource Blue Cross 6 [id number] [facility] Sp[facility] t Blue Shield of - [facility] Blue Cross 6 [id number] 2020 [facility] Spiri t Blue Shield of 00:00:00 - [facility] Problems Condition Condition Condition Status Onset Resolution Last Treating Co mments Source Name Details Category Date Date Treatment Clinician Date [id number] Body mass Problem Com mon index Spirit [BMI] - [facility] 40.0-44.9, [facility] [place] [id number] Morbid Problem Commo n [id number] (severe) Spirit obesity - [facility] due to [facility] [id number] Essential Problem Comm on hypertensi Spirit on [facility] [id number] Hypercalce Problem Com mon sara [facility] - [facility] [id number] Erectile Problem Comm on dysfunctio Spirit n, - [facility] unspecifie [facility] erectile 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 Allergies, Adverse Reactions, Alerts Allergy Allergy Status Severity Reaction(s) Onset Inactive Treating Comm ents Source Name Type Date Date Clinician NO KNOWN Drug Active Univers ALLERGIE Class ity of [facility] Social History Social Habit Start Date Stop Date Quantity Comments Source History of Tobacco Use Co mmon [facility] Sex Assigned At Com mon [facility] Exposure to SARS-CoV-2 Yes Un [facility] (event) [facility] Smoking Status Start Date Stop Date Source Never Smoker Common [facility] Unknown if ever smoked [facility] Medications Ordered Filled Start Stop Current Ordering Indication Dosage Frequency Signature Comments Components Source Medication Medication Date Date Medication? Clinician (SIG) Name Name Nebivolol Nebivolol 2020-11 No 1{table QD Nebivolol HCl 20 MG HCl 20 MG 1-30 t} HCl 20 MG 00:00: 00 Nebivolol Nebivolol 2020-11 No 1{table QD Nebivolol HCl 20 MG HCl 20 MG 1-30 t} HCl 20 MG 00:00: 00 Nebivolol Nebivolol 2020-11 No 1{table QD HCl 20 MG HCl 20 MG 1-30 t} 00:00: 00 Nebivolol Nebivolol 2020-11 No 1{table QD Nebivolol HCl 20 MG HCl 20 MG 1-30 t} HCl 20 MG 00:00: 00 Lisinopril- Lisinopril- No 1{table QD Lisinopril hydroCHLORO hydroCHLORO t} -hydroCHLO thiazide thiazide ROthiazide 20-25 MG 20-25 MG 20-25 MG Pravastatin Pravastatin No 1{table QD Pravastati Sodium 20 Sodium 20 t} n Sodium MG MG 20 MG hydrOXYzine hydrOXYzine No 1{capsu TID hydrOXYzin Pamoate 25 Pamoate 25 le_as_n e Pamoate MG MG eeded} 25 MG Sildenafil Sildenafil No 1{table QD Sildenafil Citrate 100 Citrate 100 t_as_ne Citrate MG MG eded} 100 MG amLODIPine amLODIPine No 1{table QD amLODIPine Besylate 10 Besylate 10 t} Besylate MG MG 10 MG Amitriptyli Amitriptyli No 1{table QD Amitriptyl ne HCl 10 ne HCl 10 t_at_be ine HCl 10 MG MG dtime} MG hydrOXYzine hydrOXYzine No 1{table QID hydrOXYzin HCl 25 MG HCl 25 MG t_as_ne e HCl 25 eded} MG Lisinopril- Lisinopril- No 1{table QD Lisinopril hydroCHLORO hydroCHLORO t} -hydroCHLO thiazide thiazide ROthiazide 20-25 MG 20-25 MG 20-25 MG Pravastatin Pravastatin No 1{table QD Pravastati Sodium 20 Sodium 20 t} n Sodium MG MG 20 MG hydrOXYzine hydrOXYzine No 1{capsu TID hydrOXYzin Pamoate 25 Pamoate 25 le_as_n e Pamoate MG MG eeded} 25 MG Sildenafil Sildenafil No 1{table QD Sildenafil Citrate 100 Citrate 100 t_as_ne Citrate MG MG eded} 100 MG hydrOXYzine hydrOXYzine No 1{capsu TID hydrOXYzin Pamoate 25 Pamoate 25 le_as_n e Pamoate MG MG eeded} 25 MG Amitriptyli Amitriptyli No 1{table QD Amitriptyl ne HCl 10 ne HCl 10 t_at_be ine HCl 10 MG MG dtime} MG Pravastatin Pravastatin No 1{table QD Pravastati Sodium 20 Sodium 20 t} n Sodium MG MG 20 MG hydrOXYzine hydrOXYzine No 1{table QID hydrOXYzin HCl 25 MG HCl 25 MG t_as_ne e HCl 25 eded} MG Lisinopril- Lisinopril- No 1{table QD Lisinopril hydroCHLORO hydroCHLORO t} -hydroCHLO thiazide thiazide ROthiazide 20-25 MG 20-25 MG 20-25 MG Nebivolol Nebivolol No 1{table QD Nebivolol HCl 20 MG HCl 20 MG t} HCl 20 MG amLODIPine amLODIPine No 1{table QD amLODIPine Besylate 10 Besylate 10 t} Besylate MG MG 10 MG Amitriptyli Amitriptyli No Amitriptyl ne HCl 10 ne HCl 10 ine HCl 10 MG MG MG Lisinopril- Lisinopril- No Lisinopril hydroCHLORO hydroCHLORO -hydroCHLO thiazide thiazide ROthiazide 20-25 MG 20-25 MG 20-25 MG hydrOXYzine hydrOXYzine No 1{table QID hydrOXYzin HCl 25 MG HCl 25 MG t_as_ne e HCl 25 eded} MG hydrOXYzine hydrOXYzine No 1{capsu TID hydrOXYzin Pamoate 25 Pamoate 25 le_as_n e Pamoate MG MG eeded} 25 MG Pravastatin Pravastatin No Pravastati Sodium 20 Sodium 20 n Sodium MG MG 20 MG amLODIPine amLODIPine No amLODIPine Besylate 10 Besylate 10 Besylate MG MG 10 MG Nebivolol Nebivolol No 1{table QD Nebivolol HCl 20 MG HCl 20 MG t} HCl 20 MG Lisinopril- Lisinopril- No Lisinopril hydroCHLORO hydroCHLORO -hydroCHLO thiazide thiazide ROthiazide 20-25 MG 20-25 MG 20-25 MG Amitriptyli Amitriptyli No 1{table QD Amitriptyl ne HCl 25 ne HCl 25 t_at_be ine HCl 25 MG MG dtime} MG hydrOXYzine hydrOXYzine No 1{capsu TID hydrOXYzin Pamoate 25 Pamoate 25 le_as_n e Pamoate MG MG eeded} 25 MG Sildenafil Sildenafil No 1{table QD Sildenafil Citrate 100 Citrate 100 t_as_ne Citrate MG MG eded} 100 MG Amitriptyli Amitriptyli No Amitriptyl ne HCl 10 ne HCl 10 ine HCl 10 MG MG MG Pravastatin Pravastatin No 1{table QD Pravastati Sodium 20 Sodium 20 t} n Sodium MG MG 20 MG amLODIPine amLODIPine No amLODIPine Besylate 10 Besylate 10 Besylate MG MG 10 MG Lisinopril- Lisinopril- No 1{table QD Lisinopril hydroCHLORO hydroCHLORO t} -hydroCHLO thiazide thiazide ROthiazide 20-25 MG 20-25 MG 20-25 MG Nebivolol Nebivolol No 1{table QD Nebivolol HCl 20 MG HCl 20 MG t} HCl 20 MG hydrOXYzine hydrOXYzine No 1{table QID hydrOXYzin HCl 25 MG HCl 25 MG t_as_ne e HCl 25 eded} MG Pravastatin Pravastatin No Pravastati Sodium 20 Sodium 20 n Sodium MG MG 20 MG amLODIPine amLODIPine No 1{table QD amLODIPine Besylate 10 Besylate 10 t} Besylate MG MG 10 MG Lisinopril- Lisinopril- No Lisinopril hydroCHLORO hydroCHLORO -hydroCHLO thiazide thiazide ROthiazide 20-25 MG 20-25 MG 20-25 MG Sildenafil Sildenafil No 1{table QD Sildenafil Citrate 100 Citrate 100 t_as_ne Citrate MG MG eded} 100 MG hydrOXYzine hydrOXYzine No hydrOXYzin Pamoate 25 Pamoate 25 e Pamoate MG MG 25 MG Amitriptyli Amitriptyli No QD Amitriptyl ne HCl 10 ne HCl 10 ine HCl 10 MG MG MG amLODIPine amLODIPine No 1{table QD amLODIPine Besylate 10 Besylate 10 t} Besylate MG MG 10 MG Pravastatin Pravastatin No 1{table QD Pravastati Sodium 20 Sodium 20 t} n Sodium MG MG 20 MG Amitriptyli Amitriptyli No 1{table QD Amitriptyl ne HCl 25 ne HCl 25 t_at_be ine HCl 25 MG MG dtime} MG Lisinopril- Lisinopril- No 1{table QD Lisinopril hydroCHLORO hydroCHLORO t} -hydroCHLO thiazide thiazide ROthiazide 20-25 MG 20-25 MG 20-25 MG Nebivolol Nebivolol No 1{table QD Nebivolol HCl 20 MG HCl 20 MG t} HCl 20 MG hydrOXYzine hydrOXYzine No 1{table QID hydrOXYzin HCl 25 MG HCl 25 MG t_as_ne e HCl 25 eded} MG Pravastatin Pravastatin No Pravastati Sodium 20 Sodium 20 n Sodium MG MG 20 MG amLODIPine amLODIPine No amLODIPine Besylate 10 Besylate 10 Besylate MG MG 10 MG hydrOXYzine hydrOXYzine No 1{table QID hydrOXYzin HCl 25 MG HCl 25 MG t_as_ne e HCl 25 eded} MG Sildenafil Sildenafil No 1{table QD Sildenafil Citrate 100 Citrate 100 t_as_ne Citrate MG MG eded} 100 MG hydrOXYzine hydrOXYzine No hydrOXYzin Pamoate 25 Pamoate 25 e Pamoate MG MG 25 MG Amitriptyli Amitriptyli No QD Amitriptyl ne HCl 10 ne HCl 10 ine HCl 10 MG MG MG amLODIPine amLODIPine No 1{table QD amLODIPine Besylate 10 Besylate 10 t} Besylate MG MG 10 MG Pravastatin Pravastatin No Pravastati Sodium 20 Sodium 20 n Sodium MG MG 20 MG Amitriptyli Amitriptyli No 1{table QD Amitriptyl ne HCl 25 ne HCl 25 t_at_be ine HCl 25 MG MG dtime} MG Lisinopril- Lisinopril- No Lisinopril hydroCHLORO hydroCHLORO -hydroCHLO thiazide thiazide ROthiazide 20-25 MG 20-25 MG 20-25 MG Pravastatin Pravastatin No 1{table QD Pravastati Sodium 20 Sodium 20 t} n Sodium MG MG 20 MG Nebivolol Nebivolol No 1{table QD Nebivolol HCl 20 MG HCl 20 MG t} HCl 20 MG Lisinopril- Lisinopril- No 1{table QD Lisinopril hydroCHLORO hydroCHLORO t} -hydroCHLO thiazide thiazide ROthiazide 20-25 MG 20-25 MG 20-25 MG amLODIPine amLODIPine No amLODIPine Besylate 10 Besylate 10 Besylate MG MG 10 MG hydrOXYzine hydrOXYzine No 1{table QID hydrOXYzin HCl 25 MG HCl 25 MG t_as_ne e HCl 25 eded} MG Sildenafil Sildenafil No 1{table QD Sildenafil Citrate 100 Citrate 100 t_as_ne Citrate MG MG eded} 100 MG Nebivolol Nebivolol No 1{table QD Nebivolol HCl 20 MG HCl 20 MG t} HCl 20 MG Amitriptyli Amitriptyli No QD Amitriptyl ne HCl 10 ne HCl 10 ine HCl 10 MG MG MG Pravastatin Pravastatin No Pravastati Sodium 20 Sodium 20 n Sodium MG MG 20 MG Lisinopril- Lisinopril- No Lisinopril hydroCHLORO hydroCHLORO -hydroCHLO thiazide thiazide ROthiazide 20-25 MG 20-25 MG 20-25 MG Amitriptyli Amitriptyli No 1{table QD Amitriptyl ne HCl 25 ne HCl 25 t_at_be ine HCl 25 MG MG dtime} MG amLODIPine amLODIPine No 1{table QD amLODIPine Besylate 10 Besylate 10 t} Besylate MG MG 10 MG Pravastatin Pravastatin No 1{table QD Pravastati Sodium 20 Sodium 20 t} n Sodium MG MG 20 MG Lisinopril- Lisinopril- No 1{table QD Lisinopril hydroCHLORO hydroCHLORO t} -hydroCHLO thiazide thiazide ROthiazide 20-25 MG 20-25 MG 20-25 MG hydrOXYzine hydrOXYzine No hydrOXYzin Pamoate 25 Pamoate 25 e Pamoate MG MG 25 MG amLODIPine amLODIPine No amLODIPine Besylate 10 Besylate 10 Besylate MG MG 10 MG Pravastatin Pravastatin No 1{table QD Pravastati Sodium 20 Sodium 20 t} n Sodium MG MG 20 MG hydrOXYzine hydrOXYzine No hydrOXYzin Pamoate 25 Pamoate 25 e Pamoate MG MG 25 MG amLODIPine amLODIPine No amLODIPine Besylate 10 Besylate 10 Besylate MG MG 10 MG Sildenafil Sildenafil No 1{table QD Sildenafil Citrate 100 Citrate 100 t_as_ne Citrate MG MG eded} 100 MG Amitriptyli Amitriptyli No 1{table QD Amitriptyl ne HCl 25 ne HCl 25 t_at_be ine HCl 25 MG MG dtime} MG hydrOXYzine hydrOXYzine No 1{table QID hydrOXYzin HCl 25 MG HCl 25 MG t_as_ne e HCl 25 eded} MG Amitriptyli Amitriptyli No QD Amitriptyl ne HCl 10 ne HCl 10 ine HCl 10 MG MG MG hydrOXYzine hydrOXYzine No 1{capsu TID hydrOXYzin Pamoate 25 Pamoate 25 le_as_n e Pamoate MG MG eeded} 25 MG Nebivolol Nebivolol No 1{table QD Nebivolol HCl 20 MG HCl 20 MG t} HCl 20 MG Pravastatin Pravastatin No Pravastati Sodium 20 Sodium 20 n Sodium MG MG 20 MG Lisinopril- Lisinopril- No Lisinopril hydroCHLORO hydroCHLORO -hydroCHLO thiazide thiazide ROthiazide 20-25 MG 20-25 MG 20-25 MG amLODIPine amLODIPine No 1{table QD amLODIPine Besylate 10 Besylate 10 t} Besylate MG MG 10 MG Lisinopril- Lisinopril- No 1{table QD Lisinopril hydroCHLORO hydroCHLORO t} -hydroCHLO thiazide thiazide ROthiazide 20-25 MG 20-25 MG 20-25 MG Pravastatin Pravastatin No 1{table QD Pravastati Sodium 20 Sodium 20 t} n Sodium MG MG 20 MG Amitriptyli Amitriptyli No 1{table QD Amitriptyl ne HCl 10 ne HCl 10 t_at_be ine HCl 10 MG MG dtime} MG amLODIPine amLODIPine No 1{table QD amLODIPine Besylate 10 Besylate 10 t} Besylate MG MG 10 MG Bystolic 10 Bystolic 10 No 1{table QD Bystolic MG MG t} 10 MG Sildenafil Sildenafil No 1{table QD Sildenafil Citrate 100 Citrate 100 t_as_ne Citrate MG MG eded} 100 MG hydrOXYzine hydrOXYzine No 1{capsu TID hydrOXYzin Pamoate 25 Pamoate 25 le_as_n e Pamoate MG MG eeded} 25 MG Lisinopril- Lisinopril- No 1{table QD Lisinopril hydroCHLORO hydroCHLORO t} -hydroCHLO thiazide thiazide ROthiazide 20-25 MG 20-25 MG 20-25 MG hydrOXYzine hydrOXYzine No 1{table QID hydrOXYzin HCl 25 MG HCl 25 MG t_as_ne e HCl 25 eded} MG hydrOXYzine hydrOXYzine No 1{table QID hydrOXYzin HCl 25 MG HCl 25 MG t_as_ne e HCl 25 eded} MG hydrOXYzine hydrOXYzine No 1{capsu TID hydrOXYzin Pamoate 25 Pamoate 25 le_as_n e Pamoate MG MG eeded} 25 MG Lisinopril- Lisinopril- No 1{table QD Lisinopril hydroCHLORO hydroCHLORO t} -hydroCHLO thiazide thiazide ROthiazide 20-25 MG 20-25 MG 20-25 MG Amitriptyli Amitriptyli No 1{table QD Amitriptyl ne HCl 10 ne HCl 10 t_at_be ine HCl 10 MG MG dtime} MG amLODIPine amLODIPine No 1{table QD amLODIPine Besylate 10 Besylate 10 t} Besylate MG MG 10 MG Pravastatin Pravastatin No 1{table QD Pravastati Sodium 20 Sodium 20 t} n Sodium MG MG 20 MG Sildenafil Sildenafil No 1{table QD Sildenafil Citrate 100 Citrate 100 t_as_ne Citrate MG MG eded} 100 MG amLODIPine amLODIPine No 1{table QD Besylate 10 Besylate 10 t} MG MG Amitriptyli Amitriptyli No 1{table QD ne HCl 10 ne HCl 10 t_at_be MG MG dtime} hydrOXYzine hydrOXYzine No 1{table QID HCl 25 MG HCl 25 MG t_as_ne eded} Lisinopril- Lisinopril- No 1{table QD hydroCHLORO hydroCHLORO t} thiazide thiazide 20-25 MG 20-25 MG Pravastatin Pravastatin No 1{table QD Sodium 20 Sodium 20 t} MG MG hydrOXYzine hydrOXYzine No 1{capsu TID Pamoate 25 Pamoate 25 le_as_n MG MG eeded} Sildenafil Sildenafil No 1{table QD Citrate 100 Citrate 100 t_as_ne MG MG eded} amLODIPine amLODIPine No 1{table QD amLODIPine Besylate 10 Besylate 10 t} Besylate MG MG 10 MG Amitriptyli Amitriptyli No 1{table QD Amitriptyl ne HCl 10 ne HCl 10 t_at_be ine HCl 10 MG MG dtime} MG hydrOXYzine hydrOXYzine No 1{table QID hydrOXYzin HCl 25 MG HCl 25 MG t_as_ne e HCl 25 eded} MG No known [facility]s Vital Name Observation Time Observation Value Comments Source height 2022-12-16 15:20:00 72 [in_i] [facility] weight 2022-12-16 15:20:00 304 [lb_av] [facility] temperature 2022-12-16 15:20:00 97.8 [degF] [facility] bmi 2022-12-16 15:20:00 41.23 kg/m2 [facility] blood pressure 2022-12-16 15:20:00 125 mm[Hg] [facility] - systolic [facility] blood pressure 2022-12-16 15:20:00 89 mm[Hg] [facility] - diastolic [facility] height 2022-05-13 08:50:00 72 [in_i] [facility] weight 2022-05-13 08:50:00 300 [lb_av] [facility] temperature 2022-05-13 08:50:00 98.4 [degF] Common S pirit - [facility] bmi 2022-05-13 08:50:00 40.68 kg/m2 Common S pirit - [facility] blood pressure 2022-05-13 08:50:00 125 mm[Hg] [facility] - systolic [facility] blood pressure 2022-05-13 08:50:00 85 mm[Hg] [facility] - diastolic [facility] height 2022-01-16 08:00:00 72 [in_i] [facility] weight 2022-01-16 08:00:00 304.1 [lb_av] [facility] temperature 2022-01-16 08:00:00 97.4 [degF] [facility] bmi 2022-01-16 08:00:00 41.24 kg/m2 [facility] oximetry 2022-01-16 08:00:00 98 % [facility] respiratory rate 2022-01-16 08:00:00 17 /min Comm on [facility] - [facility] blood pressure 2022-01-16 08:00:00 135 mm[Hg] [facility] - systolic [facility] blood pressure 2022-01-16 08:00:00 79 mm[Hg] [facility] - diastolic [facility] height 2021-11-13 10:40:00 72 [in_i] Common S pirit [facility] weight 2021-11-13 10:40:00 307.1 [lb_av] [facility] bmi 2021-11-13 10:40:00 41.65 kg/m2 [facility] height 2021-10-15 13:50:00 72 [in_i] [facility] weight 2021-10-15 13:50:00 307.1 [lb_av] [facility] temperature 2021-10-15 13:50:00 98.4 [degF] [facility] bmi 2021-10-15 13:50:00 41.65 kg/m2 Common S [facility] oximetry 2021-10-15 13:50:00 96 % Common [facility] respiratory rate 2021-10-15 13:50:00 17 /min Comm on [facility] - [facility] blood pressure 2021-10-15 13:50:00 132 mm[Hg] [facility] - systolic [facility] blood pressure 2021-10-15 13:50:00 82 mm[Hg] [facility] - diastolic [facility] Systolic blood 2020-06-10 16:29:00 147 mm[Hg] Univer sity of pressure [facility] Diastolic blood 2020-06-10 16:29:00 101 mm[Hg] Unive rsity of [facility] Heart rate 2020-06-10 16:29:00 79 /min Universi ty [facility] Respiratory rate 2020-06-10 16:29:00 17 /min Univ ersity of [facility] Oxygen saturation in 2020-06-10 16:29:00 96 /min University of Arterial blood by [facility] Pulse oximetry Branch Body temperature 2020-06-10 15:56:00 38.28 [facility] height 2020-06-10 15:56:00 182.9 cm [facility] Body weight 2020-06-10 15:56:00 136.079 kg [facility] BMI 2020-06-10 15:56:00 40.69 kg/m2 [facility] Systolic blood 2020-06-10 16:29:00 147 mm[Hg] Univer sity of [facility] Diastolic blood 2020-06-10 16:29:00 101 mm[Hg] Unive rsity of pressure [facility] Heart rate 2020-06-10 16:29:00 79 /min Universi ty [facility] Respiratory rate 2020-06-10 16:29:00 17 /min Univ ersity of [facility] Oxygen saturation in 2020-06-10 16:29:00 96 /min [facility] of Arterial blood by [place] [facility] Pulse oximetry Branch Body temperature 2020-06-10 15:56:00 38.28 [facility] Body height 2020-06-10 15:56:00 182.9 cm [facility] Body weight 2020-06-10 15:56:00 136.079 kg [facility] BMI 2020-06-10 15:56:00 40.69 kg/m2 [facility] Procedures Procedure Date / Time Performed Performing Clinician Sourc e NOTICE OF PRIVACY 2020-06-10 15:39:42 Doctor Unassigned, No [facility] PRACTICES Name Medical Branch CONSENT/REFUSAL FOR 2020-06-10 15:39:21 [facility] AND Name Medical Branch TREATMENT Encounters Start End Encounter Admission Attending Care Care Encounter Source Date/Time Date/Time Type Type Clinicians Facility Department ID 2022-12-12 Outpatient Torre, STLMLC [facility] [id number] Common 10:52:[id number] [facility] 2022-09-09 [facility] [id number] Common 15:56:[address] [facility] 2022-01-15 Outpatient Torre, [facility] [id number] Common 11:07:[address] [facility] 2021-12-11 Outpatient Torre, [facility] [id number] Common 14:29:[id number] [facility] 2021-12-11 Outpatient Torre, [facility] [id number] Common 14:28:[id number] [facility] 2021-12-11 Outpatient Torre, [facility] [id number] Common 13:22:[id number] [facility] 2021-12-11 Outpatient Torre, STLC [facility] [id number] Common 12:44:[id number] [facility] 2021-12-11 [facility], [facility] [id number] Common 12:39:[id number] [facility] 2021-12-11 [facility] [id number] Common 12:39:[id number] [facility] 2021-12-11 Outpatient Torre, STLMLC ST[facility]C [id number] Common 12:37:[id number] [facility] 2021-12-11 Outpatient Torre, STLMLC ST[facility]C [id number] Common 12:12:[id number] [facility] 2021-12-11 Outpatient Torre, STLMLC ST[facility]C [id number] Common 12:12:[id number] [facility] 2021-12-11 Outpatient Torre, STLMLC ST[facility]C [id number] Common 12:05:[id number] [facility] 2021-12-11 Outpatient Torre, STLMLC STLMLC [id number] Common 12:04:[id number] [facility] 2022-12-16 2022-12-16 OFFICE STLMLC STLMLC [id number] Co mmon 00:00:00 00:00:00 VISIT [facility] PT - CHI LEVEL 4 [facility] 2022-09-09 2022-09-09 (TEL) STLMLC STLMLC [id number] Co mmon 00:00:00 00:00:00 [facility] 2022-07-07 2022-07-07 (TEL) STLMLC STLMLC [id number] Co mmon 00:00:00 00:00:00 [facility] 2022-06-30 2022-06-30 (TEL) STLMLC STLMLC [id number] Co mmon 00:00:00 00:00:00 [facility] 2022-05-13 2022-05-13 OFFICE STLMLC STLMLC [id number] Co mmon 00:00:00 00:00:00 VISIT [facility] PT - CHI LEVEL 4 [facility] 2022-04-29 2022-04-29 (TEL) STLMLC STLMLC [id number] Co mmon 00:00:00 00:00:00 [facility] 2022-01-16 2022-01-16 PREV VISIT STLMLC STLMLC [id number] Common 00:00:00 00:00:00 EST AGE Carlos 40-64 - [facility] 2022-01-15 2022-01-15 (TEL) STLMLC STLMLC [id number] Co mmon 00:00:00 00:00:00 [facility] 2021-11-13 2021-11-13 OFFICE STLMLC STLMLC [id number] Co mmon 00:00:00 00:00:00 VISIT EST Spir it PT LEVEL 3 - [facility] 2021-11-12 2021-11-12 (TEL) STLMLC STLMLC [id number] Co mmon 00:00:00 00:00:00 [facility] 2021-10-15 2021-10-15 OFFICE STLMLC STLMLC [id number] Co mmon 00:00:00 00:00:00 VISIT Spirit ESTAB PT - CHI LEVEL 4 [facility] 2021-09-04 2021-09-04 (TEL) STLMLC STLMLC [id number] Co mmon 00:00:00 00:00:00 [facility] 2021-05-31 2021-05-31 Outpatient STLMLC STLMLC [id number] Common 00:00:00 00:00:00 [facility] 2021-03-22 2021-03-22 Outpatient STLMLC STLMLC [id number] Common 00:00:00 00:00:00 [facility] 2021-03-18 2021-03-18 Outpatient STLMLC STLMLC [id number] Common 00:00:00 00:00:00 [facility] 2021-01-28 2021-01-28 Outpatient STLMLC STLMLC [id number] Common 00:00:00 00:00:00 [facility] 2020-10-29 2020-10-29 Outpatient STLMLC STLMLC [id number] Common 00:00:00 00:00:00 [facility] 2020-09-27 2020-09-27 Outpatient STLMLC STLMLC [id number] Common 00:00:00 00:00:00 [facility] - [facility] 2020-06-10 2020-06-10 Emergency [facility], [facility] [id number] [facility] 11:06:15 11:47:00 [facility] [id number] ity [facility] [id number] [facility] [id number] [address] 2020-06-10 2020-06-10 Emergency [facility] [id number] 11:06:15 11:47:00 [facility] [place] [id number] [place] [id number] [place] [id number] [facility] 2020-06-10 2020-06-10 Emergency X [facility] ERT [id number] Univers 10:39:00 [facility]39[facility] This patient has no known results.
[2023-07-05] MEDS ORDERED: LORAZEPAM 1 MG TABLET ONE (21:59)
[2023-07-05 22:27] LABS: Protime INR 1.01
[2023-07-05 22:38] LABS: Magnesium 2.1 mg/dL (1.6-2.4); Potassium 3.5 mEq/L (3.5-5.1); Troponin High Sensitivity 5.8 pg/mL (<58.9)
[2023-07-05 22:43] LABS: Absolute Lymphocytes (CBC) 3.2 K/uL (0.7-4.9); Hematocrit 41.6 % (39.6-49.0); Lymphocytes % 36.6 % (15.3-44.8); MCV 88.8 fL (80-100); MPV 8.6 fL (7.6-11.3); Platelets 258 thou/uL (152-406); RBC Red Blood Cell Count 4.68 M/uL (4.33-5.43)
--- NOTE | 2023-07-06 00:04 | ER ---
Nurse's Notes [facility] Name: Seferino Park Jr Age: 43 yrs Sex: Male : 1980 Arrival Date: 07/05/2023 Time: 20:32 Bed 16 Private MD: Diagnosis: Generalized anxiety disorder Presentation: 07/05 20:53 Chief complaint: Patient states: Severely anxious on/off for the past week. Has been nj1 under a lot of stress lately. Coronavirus screen: Vaccine status:. Ebola Screen: Patient denies travel to an Ebola-affected area in the 21 days before illness onset. Initial Sepsis Screen: Does the patient meet any 2 criteria? No. Patient's initial sepsis screen is negative. Does the patient have a suspected source of infection? No. Patient's initial sepsis screen is negative. Risk Assessment: Do you want to hurt yourself or someone else? Patient reports no desire to harm self or others. Onset of symptoms was June 29, 2023. 20:53 Method Of Arrival: Ambulatory [facility] 20:53 Acuity: ALEXIS 3 [facility] Triage Assessment: 23:16 General: Appears in no apparent distress. comfortable, Behavior is anxious. Pain: vc1 Denies pain. EENT: No deficits noted. No signs and/or symptoms were reported regarding the EENT system. Neuro: Reports dizziness. Neuro: Level of Consciousness is awake, alert, obeys commands, Oriented to person, place, time, situation, Appropriate for age. Cardiovascular: No deficits noted. Respiratory: Airway is patent Respiratory effort is even, unlabored, Respiratory pattern is regular, symmetrical. GI: No deficits noted. No signs and/or symptoms were reported involving the gastrointestinal system. : No deficits noted. No signs and/or symptoms were reported regarding the genitourinary system. Derm: No deficits noted. No signs and/or symptoms reported regarding the dermatologic system. Musculoskeletal: No deficits noted. No signs and/or symptoms reported regarding the musculoskeletal system. Historical: - Allergies: 21:10 No Known Allergies; nj1 - PMHx: 21:10 Anxiety; Depression; Hyperlipidemia; Hypertension; nj1 - PSHx: 21:10 retinal detachment SX x 2; nj1 - Immunization history:: Client reports receiving the 2nd dose of the Covid vaccine. - Social history:: Smoking status: Patient denies any tobacco usage or history of. Screenin:16 [facility] ED Fall Risk Assessment (Adult) History of falling in the last 3 months, vc1 including since admission No falls in past 3 months (0 pts) Confusion or Disorientation No (0 pts) Intoxicated or Sedated No (0 pts) Impaired Gait No (0 pts) Mobility Assist Device Used No (0 pt) Altered Elimination No (0 pt). Abuse screen: Denies threats or abuse. Nutritional screening: No deficits noted. Tuberculosis screening: No symptoms or risk factors identified. Assessment: 07/06 00:05 Reassessment: Patient and/or family updated on plan of care and expected duration. Pain vc1 level reassessed. Patient is alert, oriented x 3, equal unlabored respirations, skin warm/dry/pink. Patient denies pain at this time. Patient states feeling better. Patient states symptoms have improved. Vital Signs: 07/05 20:53 BP 131 / 87; Pulse 61; Resp 18; Temp 98.2; Pulse Ox 100% on R/A; Weight 137.89 kg; nj1 Height 6 ft. 0 in. ; Pain 0/10; 23:10 BP 120 / 83; sm8 23:20 Pulse 52; Resp 18; Pulse Ox 100% ; vc1 20:53 Body Mass Index 41.23 (137.89 kg, 182.88 cm) nj1 20:53 Pain Scale: Adult de1 ED Course: 20:36 Patient arrived in ED. im 20:53 George Parnell PA is PHCP. cp 20:53 Shun Melgar MD is Attending Physician. cp 21:10 Triage completed. nj1 21:10 Arm band placed on left wrist. nj1 21:30 Patient has correct armband on for positive identification. vc1 21:30 Client placed on continuous cardiac and pulse oximetry monitoring. NIBP monitoring vc1 applied. 21:37 Lindsey Gustafson, DANNIELLE is Primary Nurse. vc1 21:53 Missed attempt(s): 20 gauge in right antecubital area. Bleeding controlled, band aid sm8 applied, catheter tip intact. 21:53 Inserted saline lock: 22 gauge in right antecubital area, using aseptic technique. sm8 Blood collected. 07/06 00:04 No provider procedures requiring assistance completed. vc1 00:05 IV discontinued, intact, bleeding controlled, No redness/swelling at site. Pressure vc1 dressing applied. 00:09 Provided Education on: medication adminstration. ha1 Administered Medications: 07/05 21:51 Drug: LORazepam PO 1 mg Route: PO; vc1 Medication: 23:20 VIS not applicable for this client. vc1 Outcome: 07/06 00:02 Discharge ordered by . magalie 00:05 Condition: good vc1 00:05 Discharge instructions given to patient, Instructed on discharge instructions, follow up and referral plans. medication usage, Demonstrated understanding of instructions, follow-up care, medications, Prescriptions given X 1. 00:09 Discharged to home ambulatory. ha1 00:10 Patient left the ED. ha1 Signatures: George Parnell PA PA cp Calcote, Vanessa, RN RN vc1 Aretha Corey RN RN 1 Lucrecia Multani RN RN de1 Kaila Galeano Scarlett 8
--- NOTE | 2023-07-06 00:04 | EDPHYS ---
Physician Documentation [facility] Name: Seferino Park Jr Age: 43 yrs Sex: Male : 1980 Arrival Date: 07/05/2023 Time: 20:32 Bed 16 Private MD: ED Physician Shun Melgar HPI: 07/05 21:25 This 43 yrs old Male presents to ER via Ambulatory with complaints of Anxiety, cp Dizziness. 21:25 The patient presents to the emergency department with anxiety, over work, increased cp stress. 21:25 Onset: The symptoms/episode began/occurred gradually, and became worse 1 week(s) ago. cp 21:25 Past psychiatric history: Prior diagnosis: depression, Psychiatric medications include: cp none. Associated signs and symptoms: Pertinent positives; dizziness, Pertinent negatives: abdominal pain, chest pain, fever, hallucinations, homicidal ideation, substance abuse, suicide ideation. Patient presents to ED with c/o anxiety. Reports increased stress at home and at work. History of depression. Denies any suicidal and/or homicidal ideations. Not on any prescribed medications for depression and/or anxiety. Historical: - Allergies: 21:10 No Known Allergies; nj1 - PMHx: 21:10 Anxiety; Depression; Hyperlipidemia; Hypertension; nj1 - PSHx: 21:10 retinal detachment SX x 2; nj1 - Immunization history:: Client reports receiving the 2nd dose of the Covid vaccine. - Social history:: Smoking status: Patient denies any tobacco usage or history of. ROS: 21:30 Constitutional: Negative for body aches, chills, fever, poor PO intake. cp 21:30 Cardiovascular: Negative for chest pain, edema, palpitations. cp Exam: 21:33 Constitutional: The patient appears in no acute distress, alert, awake, cp non-diaphoretic, non-toxic, well developed, well nourished, obese. 21:33 Head/Face: Normocephalic, atraumatic. cp 21:33 Eyes: Periorbital structures: appear normal, Conjunctiva: normal, no exudate, no injection, Sclera: no appreciated abnormality, Lids and lashes: appear normal, bilaterally. 21:33 ENT: External ear(s): are unremarkable, Nose: is normal, Mouth: Lips: moist, Oral mucosa: pink and intact, moist, Posterior pharynx: is normal, airway is patent, no erythema, no exudate. 21:33 Neck: ROM/movement: is normal, is supple, without pain, no range of motions limitations. 21:33 Chest/axilla: Inspection: normal. 21:33 Cardiovascular: Rate: normal, Rhythm: regular, Edema: is not appreciated, JVD: is not appreciated. 21:33 Respiratory: the patient does not display signs of respiratory distress, Respirations: normal, no use of accessory muscles, no retractions, labored breathing, is not present, Breath sounds: are clear throughout, no decreased breath sounds, no stridor, no wheezing. 21:33 Abdomen/GI: Inspection: obese Palpation: abdomen is soft and non-tender, in all quadrants. 21:33 Back: pain, is absent, ROM is normal. 21:33 Skin: cellulitis, is not appreciated, no rash present. 21:33 Neuro: Orientation: to person, place \T\ time. Mentation: is normal, Motor: moves all fours, strength is normal, Sensation: is normal. 21:33 Psych: Behavior/mood is pleasant, Affect is calm, Patient has no thoughts/intents to harm self or others. Judgement / Insight is normal. 21:50 ECG was reviewed by the Attending Physician. Vital Signs: 20:53 BP 131 / 87; Pulse 61; Resp 18; Temp 98.2; Pulse Ox 100% on R/A; Weight 137.89 kg; nj1 Height 6 ft. 0 in. ; Pain 0/10; 23:10 BP 120 / 83; sm8 23:20 Pulse 52; Resp 18; Pulse Ox 100% ; vc1 20:53 Body Mass Index 41.23 (137.89 kg, 182.88 cm) nj1 20:53 Pain Scale: Adult nj1 MDM: 21:10 Patient medically screened. cp 22:00 Differential diagnosis: acute psychotic break, depression, psychosis secondary to cp non-compliance, anxiety. 07/06 00:00 Data reviewed: vital signs, nurses notes, lab test result(s), EKG. cp 00:00 I considered the following discharge prescriptions or medication management in the emergency department Medications were administered in the Emergency Department. See MAR. Counseling: I had a detailed discussion with the patient and/or guardian regarding the historical points, exam findings, and any diagnostic results supporting the discharge/admit diagnosis, lab results, the need for outpatient follow up, a family practitioner, to return to the emergency department if symptoms worsen or persist or if there are any questions or concerns that arise at home. Response to treatment: the patient's symptoms have markedly improved after treatment, and as a result, I will discharge patient. 07/05 21:19 Order name: Basic Metabolic Panel; Complete Time: 23:28 cp 07/05 21: Order name: CBC with Diff; Complete Time: 23:28 cp 07/05 21: Order name: Magnesium; Complete Time: 23:28 cp 07/05 21: Order name: PT-INR; Complete Time: 23:28 cp 07/05 21: Order name: Troponin HS; Complete Time: 23:28 cp 07/05 23:28 Interpretation: Reviewed. cp 07/05 21:32 Order name: UDS cp 07/05 21:32 Order name: Urinalysis W/Microscopic cp 07/05 21:19 Order name: EKG; Complete Time: 21:20 cp 07/05 21:19 Order name: Cardiac monitoring; Complete Time: 21:53 cp 07/05 21:19 Order name: EKG - Nurse/Tech; Complete Time: 21:53 cp 07/05 21:19 Order name: IV Saline Lock; Complete Time: 21:53 cp 07/05 21:19 Order name: Labs collected and sent; Complete Time: 21:53 cp 07/05 21:19 Order name: O2 Per Protocol; Complete Time: 21:53 cp 07/05 21:19 Order name: O2 Sat Monitoring; Complete Time: 21:53 cp EC/20 21:50 Rate is 59 beats/min. Rhythm is regular. OK interval is normal. QRS interval is normal. cp QT interval is normal. T waves are Inverted in leads III, aVR. Interpreted by me. Reviewed by me. Administered Medications: 21:51 Drug: LORazepam PO 1 mg Route: PO; vc1 Disposition: 07/06 05:42 Co-signature as Attending Physician, Shun Melgar MD I reviewed the patient's care rt provided by the Advanced Practice Provider and agree with the diagnosis and treatment plan. Disposition Summary: 07/06/23 00:02 Discharge Ordered Location: Home cp Problem: an acute exacerbation cp Symptoms: have improved cp Condition: Stable cp Diagnosis - Generalized anxiety disorder cp Followup: cp - With: Private Physician - When: 2 - 3 days - Reason: Recheck today's complaints Discharge Instructions: - Discharge Summary Sheet cp - Generalized Anxiety Disorder, Adult cp - Managing Anxiety, Adult cp Forms: - Medication Reconciliation Form cp - Thank You Letter cp - Antibiotic Education cp - Prescription Opioid Use cp - Patient Portal Instructions cp - Leadership Thank You Letter cp Prescriptions: - Ativan 1 mg Oral Tablet - take 1 tablet by ORAL route every 12 hours As needed; 10 tablet; Refills: 0, cp Product Selection Permitted Signatures: Dispatcher [employer] EDMS George Parnell PA PA cp Lindsey Gustafson RN RN vc1 Shun Melgar MD MD rt Lucrecia Multani RN RN nj1
[2023-07-06 00:14] LABS: Barbiturates NEGATIVE (NEGATIVE); Benzodiazepines NEGATIVE (NEGATIVE); Cocaine NEGATIVE (NEGATIVE); METHAMPHETAM NEGATIVE (NEGATIVE); Methadone NEGATIVE (NEGATIVE); Opiates NEGATIVE (NEGATIVE); Phencyclidine NEGATIVE (NEGATIVE); THC Cannibis NEGATIVE (NEGATIVE)
[2023-07-06 00:15] VITALS: TEMP 98.2; O2SAT 100
[2023-07-06 00:15] LABS: Specific Gravity 1.009 (1.005-1.030); Urine Bacteria None Seen /HPF (<20); Urine Bilirubin NEGATIVE (Negative); Urine Blood Negative (Negative); Urine Clarity Clear (Clear); Urine Color Colorless (Yellow); Urine Glucose NEGATIVE (Negative); Urine Protein NEGATIVE (Negative); Urine RBC None Seen /HPF (None Seen); Urine Urobilinogen Normal (Normal); Urine pH 6.5 (5.0-7.0)
[2023-07-06 00:16] VITALS: BP 120/83
--- NOTE | 2023-07-06 17:57 | EKG ---
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
== END 2023-07-06 00:10 | disposition home or self-care (01) ==
LOC: ER 20:32
DX: F41.1 Generalized anxiety disorder (principal); I10 Essential (primary) hypertension
CPT/HCPCS: 36415; 80048; 80307; 81001; 83735; 84484; 85025; 85610; 93005; 99284

== ENCOUNTER 2023-09-10 19:49 | Emergency (ER) | payer BC ==
--- OUTSIDE RECORDS SUMMARY | 2023-09-10 19:53 | XMS REPORT | Continuity of Care Document ---
:1980 Author Organization [facility] t Address [address] [facility] [address] [place] [address] Care Team Providers Name Role Phone Tati Alexander Primary Care Physician Jad Torre Attending Clinician Unavailable Doctor Unassigned, [place] Attending Clinician Unavailable Vita Nielsen NP Attending Clinician Payers Payer Name Policy Type Policy Number Effective Date Expiration Date S ource Blue Cross 6 [id number] Common Sp[facility] t Blue [facility] of - [facility] Blue Cross 6 [id number] 2020 Common Spiri t Blue Shield of 00:00:00 - [facility] Problems Condition Condition Condition Status Onset Resolution Last Treating Co mments Source Name Details Category Date Date Treatment Clinician Date [id number] Body mass Problem Com mon index Spirit [BMI] - CHI 40.0-44.9, [facility] [id number] Morbid Problem Commo n 9104 (severe) Spirit obesity - [facility]I due to [facility] [id number] Essential Problem Comm on hypertensi Spirit on - [facility] [id number] Hypercalce Problem Com mon sara [facility] - [facility] [id number] Erectile Problem Comm on dysfunctio Spirit n, - CHI unspecifie St erectile [facility] dysfunctio [facility] type [facility] [id number] Right Problem Commo n [id number] retinal Spirit detachment - [facility] [id number] Primary Problem Common insomnia [facility] - [facility] [id number] ELBA Problem Common (generaliz Spirit ed anxiety - CHI disorder) [facility] [id number] Mixed Problem Common hyperlipid [facility] emia [facility] No known No known Disease Unive rs active active ity of problems problems [facility] Allergies, Adverse Reactions, Alerts Allergy Allergy Status Severity Reaction(s) Onset Inactive Treating Comm ents Source Name Type Date Date Clinician NO KNOWN Drug Active Univers ALLERGIE Class ity of [facility] Social History Social Habit Start Date Stop Date Quantity Comments Source History of Tobacco [facility] - [facility] Use [facility] Sex Assigned At Com mon [facility] to 2020-05-11 2020-06-10 Yes [facility] SARS-CoV-2 (event) 00:00:00 10[facility]53[facility] Smoking Status Start Date Stop Date Source Never Smoker Common [facility] Tobacco smoking consumption [facility] Medications Ordered Filled Start Stop Current Ordering [...] eded} MG No known No Univers medications [facility] Vital Signs Vital Name Observation Time Observation Value Comments Source height 2022-12-16 15:20:00 72 [in_i] [facility] weight 2022-12-16 15:20:00 304 [lb_av] [facility] temperature 2022-12-16 15:20:00 97.8 [degF] [facility] bmi 2022-12-16 15:20:00 41.23 kg/m2 [facility] blood pressure 2022-12-16 15:20:00 125 mm[Hg] [facility] - systolic [facility] blood pressure 2022-12-16 15:20:00 89 mm[Hg] [facility] - diastolic [facility] height 2022-05-13 08:50:00 72 [in_i] Common [facility] weight 2022-05-13 08:50:00 300 [lb_av] [facility] temperature 2022-05-13 08:50:00 98.4 [degF] Common S pirit [facility] bmi 2022-05-13 08:50:00 40.68 kg/m2 [facility] blood pressure 2022-05-13 08:50:00 125 mm[Hg] [facility] - systolic [facility] blood pressure 2022-05-13 08:50:00 85 mm[Hg] [facility] - diastolic [facility] height 2022-01-16 08:00:00 72 [in_i] [facility] weight 2022-01-16 08:00:00 304.1 [lb_av] [facility] temperature 2022-01-16 08:00:00 97.4 [degF] [facility] bmi 2022-01-16 08:00:00 41.24 kg/m2 [facility] oximetry 2022-01-16 08:00:00 98 % [facility] respiratory rate 2022-01-16 08:00:00 17 /min Comm on [facility] blood pressure 2022-01-16 08:00:00 135 mm[Hg] Common [facility] - systolic [facility] blood pressure 2022-01-16 08:00:00 79 mm[Hg] Common [facility] - diastolic [facility] height 2021-11-13 10:40:00 72 [in_i] [facility] weight 2021-11-13 10:40:00 307.1 [lb_av] [facility] bmi 2021-11-13 10:40:00 41.65 kg/m2 Common [facility] height 2021-10-15 13:50:00 72 [in_i] [facility] weight 2021-10-15 13:50:00 307.1 [lb_av] Common [facility] temperature 2021-10-15 13:50:00 98.4 [degF] Common S [facility] bmi 2021-10-15 13:50:00 41.65 kg/m2 Common S [facility] oximetry 2021-10-15 13:50:00 96 % Common S [facility] respiratory rate 2021-10-15 13:50:00 17 /min Comm on [facility] blood pressure 2021-10-15 13:50:00 132 mm[Hg] Common [facility] - systolic [facility] blood pressure 2021-10-15 13:50:00 82 mm[Hg] Common [facility] - diastolic [facility] Systolic blood 2020-06-10 16:29:00 147 mm[Hg] Univer sity of pressure [facility] Diastolic blood 2020-06-10 16:29:00 101 mm[Hg] Unive rsity of [facility] Heart rate 2020-06-10 16:29:00 79 /min [facility] Respiratory rate 2020-06-10 16:29:00 17 /min [facility] Oxygen saturation in 2020-06-10 16:29:00 96 /min [facility] Arterial blood by [facility] Pulse oximetry Branch Body temperature 2020-06-10 15:56:00 38.28 Zoe [facility] Body height 2020-06-10 15:56:00 182.9 cm [facility] Body weight 2020-06-10 15:56:00 136.079 kg [facility] BMI 2020-06-10 15:56:00 40.69 kg/m2 [facility] Systolic blood 2020-06-10 16:29:00 147 mm[Hg] Univer sity of pressure [facility] Diastolic blood 2020-06-10 16:29:00 101 mm[Hg] Unive rsity of [facility] Heart rate 2020-06-10 16:29:00 79 /min [facility] Respiratory rate 2020-06-10 16:29:00 17 /min [facility] Oxygen saturation in 2020-06-10 16:29:00 96 /min [facility] Arterial blood by [facility] Pulse oximetry Branch Body temperature 2020-06-10 15:56:00 38.28 Zoe [facility] Body height 2020-06-10 15:56:00 182.9 cm [facility] Body weight 2020-06-10 15:56:00 136.079 kg [facility] BMI 2020-06-10 15:56:00 40.69 kg/m2 [facility] Procedures Procedure Date / Time Performed Performing Clinician Sourc e NOTICE OF PRIVACY 2020-06-10 15:39:42 Doctor Unassigned, No [facility] PRACTICES Name Medical Clifford CONSENT/REFUSAL FOR 2020-06-10 15:39:21 Doctor Unassigned, No [facility] DIAGNOSIS AND Name Medical Branch TREATMENT Encounters Start End Encounter Admission Attending Care Care Encounter Source Date/Time Date/Time Type Type Clinicians Facility Department ID 2022-12-12 [facility] [id number] Common 10:52:01 Jad [id number] [facility] 2022-09-09 Outpatient Torre, [facility] [id number] Common 15:56:00 Jad [facility] 2022-01-15 Outpatient Torre, [facility] [id number] Common 11:07:01 Jad [facility] 2021-12-11 Outpatient Torre, [facility] [id number] Common 14:29:14 Jad [id number] [facility] 2021-12-11 Outpatient Torre, [facility] [id number] Common 14:28:58 Jad [id number] [facility] 2021-12-11 Outpatient Torre, STLC [facility] [id number] Common 13:22:50 Jad [id number] [facility] 2021-12-11 Outpatient Torre, [facility] [id number] Common 12:44:56 Jad [id number] [facility] 2021-12-11 Outpatient Torre, STLMLC ST[facility] [id number] Common 12:39:48 Jad [id number] [facility] 2021-12-11 Outpatient Torre, STLMLC STL[facility]C [id number] Common 12:39:19 Jad [id number] [facility] 2021-12-11 Outpatient Torre, STLMLC STL[facility]C [id number] Common 12:37:07 Jad [id number] [facility] 2021-12-11 Outpatient Torre, STLMLC STLMLC [id number] Common 12:12:57 Jad [id number] [facility] 2021-12-11 Outpatient Torre, STLMLC STLMLC [id number] Common 12:12:47 Jad [id number] [facility] 2021-12-11 Outpatient Torre, STLMLC STLMLC [id number] Common 12:05:15 Jad [id number] [facility] 2021-12-11 Outpatient Torre, STLMLC STLMLC [id number] Common 12:04:46 Jad [id number] [facility] 2022-12-16 2022-12-16 OFFICE STLMLC STLMLC [id number] Co mmon 00:00:00 00:00:00 VISIT [facility] PT - CHI LEVEL [address] [place] [address] 2022-09-09 2022-09-09 (TEL) STLMLC STLMLC [id number] Co mmon 00:00:00 00:00:00 [facility] 2022-07-07 2022-07-07 (TEL) STLMLC STLMLC [id number] Co mmon 00:00:00 00:00:00 [facility] 2022-06-30 2022-06-30 (TEL) STLMLC STLMLC [id number] Co mmon 00:00:00 00:00:00 [facility] 2022-05-13 2022-05-13 OFFICE STLMLC STLMLC [id number] Co mmon 00:00:00 00:00:00 VISIT Spirit ESTAB PT - CHI LEVEL 4 [facility] 2022-04-29 2022-04-29 (TEL) STLMLC STLMLC [id number] Co mmon 00:00:00 00:00:00 [facility] 2022-01-16 2022-01-16 PREV VISIT STLMLC STLMLC [id number] Common 00:00:00 00:00:00 EST AGE Spirit 40-64 - [facility] 2022-01-15 2022-01-15 (TEL) STLMLC STLMLC [id number] Co mmon 00:00:00 00:00:00 [facility] 2021-11-13 2021-11-13 OFFICE STLMLC STLMLC [id number] Co mmon 00:00:00 00:00:00 VISIT EST Spir it PT LEVEL 3 - [facility] 2021-11-12 2021-11-12 (TEL) STLMLC STLMLC [id number] Co mmon 00:00:00 00:00:00 [facility] 2021-10-15 2021-10-15 OFFICE STLMLC STLMLC [id number] Co mmon 00:00:00 00:00:00 VISIT Spirit ESTAB PT - CHI LEVEL 4 [facility] 2021-09-04 2021-09-04 (TEL) STLMLC STLMLC [id number] Co mmon 00:00:00 00:00:00 [facility] 2021-05-31 2021-05-31 Outpatient STLMLC STLMLC [id number] Common 00:00:00 00:00:00 [facility] 2021-03-22 2021-03-22 Outpatient STLMLC STLMLC [id number] Common 00:00:00 00:00:00 [facility] 2021-03-18 2021-03-18 Outpatient STLMLC STLMLC [id number] Common 00:00:00 00:00:00 [facility] 2021-01-28 2021-01-28 Outpatient STLMLC STLMLC [id number] Common 00:00:00 00:00:00 [facility] 2020-10-29 2020-10-29 Outpatient STLMLC STLC [id number] Common 00:00:00 00:00:00 [facility] 2020-09-27 2020-09-27 Outpatient STLMLC STLC [id number] Common 00:00:00 00:00:00 [facility] 2020-06-12 2020-06-12 Patient Doctor VIRGIE [id number] Univers 00:00:00 00:00:00 Secure Msg Unassigned, CONOR [id number] ity of [facility] [id number] Lux [id number] [facility] 019 Branch 2020-06-10 2020-06-10 Emergency [facility] [id number] [facility] 11:06:15 11:47:00 Vita Ty [id number] ity of [place] [id number] [facility] [id number] [facility] 084 Branch 2020-06-10 2020-06-10 [facility] [id number] 11:06:15 11:47:00 Vita Ty [id number] [place] [id number] [place] [id number] [facility] 2020-06-10 2020-06-10 Emergency X [facility] ERT [id number] Univers 10:39:00 10:39:00 ity of [facility] Results This patient has no known results.
[2023-09-10 21:03] LABS: Methadone ND (NEGATIVE)
[2023-09-10 21:06] LABS: Specific Gravity 1.007 (1.005-1.030); Urine Bacteria None Seen /HPF (<20); Urine Bilirubin NEGATIVE (Negative); Urine Blood Negative (Negative); Urine Clarity Clear (Clear); Urine Color Colorless (Yellow); Urine Crystals Unidentified Few /HPF (None Seen); Urine Glucose NEGATIVE (Negative); Urine Protein NEGATIVE (Negative); Urine RBC None Seen /HPF (None Seen); Urine Urobilinogen Normal (Normal)
[2023-09-10] MEDS ORDERED: LORAZEPAM 1 MG TABLET ONE (21:11)
[2023-09-10 21:15] LABS: Barbiturates NEGATIVE (NEGATIVE); Benzodiazepines NEGATIVE (NEGATIVE); Cocaine NEGATIVE (NEGATIVE); METHAMPHETAM NEGATIVE (NEGATIVE); Opiates NEGATIVE (NEGATIVE); Phencyclidine NEGATIVE (NEGATIVE); THC Cannibis NEGATIVE (NEGATIVE)
[2023-09-10 21:19] LABS: Absolute Lymphocytes (CBC) 2.7 K/uL (0.7-4.9); Hematocrit 41.8 % (39.6-49.0); Lymphocytes % 32.6 % (15.3-44.8); MPV 8.3 fL (7.6-11.3); Platelets 265 thou/uL (152-406); RBC Red Blood Cell Count 4.75 M/uL (4.33-5.43)
[2023-09-10 21:22] LABS: Magnesium 2.2 mg/dL (1.6-2.4); Potassium 3.3 mEq/L (3.5-5.1); Troponin High Sensitivity 4.1 pg/mL (<58.9)
--- NOTE | 2023-09-10 21:22 | RAD REPORT ---
EXAM DESCRIPTION: Keith Single View09/10/2023 8:59 pm CLINICAL HISTORY: Chest pain COMPARISON: 2021 FINDINGS: The lungs appear clear of acute infiltrate. The heart is normal size IMPRESSION: No acute abnormalities displayed
[2023-09-10] MEDS ORDERED: ASPIRIN 81 MG CHEWABLE TABLET ONE (21:43)
--- NOTE | 2023-09-10 21:52 | ER ---
Nurse's Notes [facility] Name: Seferino Park Jr Age: 43 yrs Sex: Male : 1980 Arrival Date: 09/10/2023 Time: 19:49 Bed DX4 Private MD: Juan Manuel Hernandez E Diagnosis: Hypertensive heart disease without heart failure;Chest pain, unspecified;Anxiety disorder, unspecified Presentation: 09/10 20:03 Chief complaint: Patient states: elevated BP 153/103 with anxiety and mid chest pain of pf1 2,onset 1 hour ago. Patient stated took Lisinopril 20mg, Amlodipine 10mg, Nebivolol 20mg at 1.5 hours ago. Patient stated his anxiety feels like "I want to jump out of my skin with feeling nervous and legs are shaky.". Coronavirus screen: Vaccine status: Patient reports receiving the 2nd dose of the covid vaccine. Client denies travel out of the [place] in the last 14 days. At this time, the client does not indicate any symptoms associated with coronavirus-19. Ebola Screen: Patient negative for fever greater than or equal to 101.5 degrees Fahrenheit, and additional compatible Ebola Virus Disease symptoms. Initial Sepsis Screen: Does the patient meet any 2 criteria? No. Patient's initial sepsis screen is negative. Does the patient have a suspected source of infection? No. Patient's initial sepsis screen is negative. Initial Sepsis Screen: Does the patient have a suspected source of infection?. Risk Assessment: Do you want to hurt yourself or someone else? Patient reports no desire to harm self or others. 20:03 Method Of Arrival: Ambulatory pf1 20:03 Acuity: ALEXIS 2 pf1 Triage Assessment: 20:15 General: Appears in no apparent distress. Behavior is cooperative, appropriate for age, bp anxious. Pain: Complains of pain in chest. EENT: No deficits noted. Historical: - Allergies: 20:15 No Known Allergies; pf1 - PMHx: 20:15 Anxiety; Depression; Hyperlipidemia; Hypertension; pf1 - PSHx: 20:15 retinal detachment SX x 2; pf1 20:16 testicular surgery; pf1 - Immunization history:: Adult Immunizations up to date, Client reports receiving the 2nd dose of the Covid vaccine, Last tetanus immunization: > 10 years ago Flu vaccine is not up to date. - Social history:: Smoking status: Patient denies any tobacco usage or history of. Patient uses alcohol, but reports only rare drinking. Patient/guardian denies using street drugs. Screenin:19 [facility] ED Fall Risk Assessment (Adult) History of falling in the last 3 months, bp including since admission No falls in past 3 months (0 pts). Abuse screen: Denies threats or abuse. Denies injuries from another. Nutritional screening: No deficits noted. Tuberculosis screening: No symptoms or risk factors identified. Assessment: 20:15 General: SEE TRIAGE NOTE. bp 22:19 Reassessment: [place] HOME AMBULATORY. bp Vital Signs: 20:03 BP 145 / 94; Pulse 79; Resp 16; Temp 98.1; Pulse Ox 99% on R/A; Weight 129.27 kg; pf1 Height 6 ft. 0 in. ; Pain 2/10; 20:03 Body Mass Index 38.65 (129.27 kg, 182.88 cm) pf1 20:03 Pain Scale: Adult pf1 ED Course: 19:52 Patient arrived in ED. gm2 19:53 Juan Manuel Hernandez MD is Private Physician. gm2 19:59 George Parnell PA is PHCP. cp 19:59 George Simon MD is Attending Physician. cp 20:14 Triage completed. pf1 20:58 Inserted saline lock: 22 gauge in right antecubital area, using aseptic technique. jr12 Blood collected. 20:58 Urinalysis W/Microscopic Sent. jr12 20:59 Basic Metabolic Panel Sent. jr12 20:59 CBC with Diff Sent. jr12 20:59 Troponin HS Sent. jr12 20:59 Magnesium Sent. jr12 21:01 XRAY Chest (1 view) In Process Unspecified. EDMS 21:51 Ovidio Oscar MD is Referral Physician. cp 22:18 Martin Robbins, DANNIELLE is Primary Nurse. bp 22:19 No provider procedures requiring assistance completed. IV discontinued, intact, bp bleeding controlled, No redness/swelling at site. Pressure dressing applied. 22:19 Patient has correct armband on for positive identification. Bed in low position. Call bp light in reach. Side rails up X2. Administered Medications: 21:01 Drug: LORazepam PO 1 mg PO once Route: PO; bp 21:56 Follow up: Response: No adverse reaction bp 21:35 Drug: Aspirin PO Chewable Tablet 324 mg PO once; 81 mg tablets x 4 Route: PO; bp 21:56 Follow up: Response: No adverse reaction bp 21:56 Drug: Potassium PO Effervescent Tablet 50 mEq PO once; dissolve in 4 ounces of water or bp juice Route: PO; 21:57 Follow up: Response: Medication administered at discharge. bp Medication: 22:19 VIS not applicable for this client. bp Outcome: 21:52 Discharge ordered by MD. cp 22:19 Discharged to home ambulatory, bp 22:19 Condition: stable 22:19 Discharge instructions given to patient, Instructed on discharge instructions, follow up and referral plans. Demonstrated understanding of instructions, follow-up care, 22:20 Patient left the ED. bp Signatures: Dispatcher [employer] EDMS George Parnell PA PA cp Peltier, Brian, RN RN bp Vita Walker RN RN pf1 Marycruz Sanchez [facility] Savanna Hwang 2 Corrections: (The following items were deleted from the chart) 20:17 20:15 PMHx: pre-diabetic (retinal detachment SX x 2); pf1 pf1
--- NOTE | 2023-09-10 21:52 | EDPHYS ---
Physician Documentation [facility] Name: Seferino Park Jr Age: 43 yrs Sex: Male : 1980 Arrival Date: 09/10/2023 Time: 19:49 Bed DX4 Private MD: Juan Manuel Hernandez E ED Physician George Simon HPI: 09/10 20:15 This 43 yrs old Male presents to ER via Ambulatory with complaints of High cp Blood Pressure. 20:15 The patient has elevated blood pressure and discovered this at home, with a home device.cp 20:15 Patient is a 43-year-old male with known history of hyperlipidemia, hypertension and cp anxiety. Patient presents to the emergency department with concern for an anxiety attack. He reports she felt shaky, some mild chest discomfort and checked his blood pressure and noticed that it was elevated about an hour prior to arrival. Historical: - Allergies: 20:15 No Known Allergies; pf1 - PMHx: 20:15 Anxiety; Depression; Hyperlipidemia; Hypertension; pf1 - PSHx: 20:15 retinal detachment SX x 2; pf1 20:16 testicular surgery; pf1 - Immunization history:: Adult Immunizations up to date, Client reports receiving the 2nd dose of the Covid vaccine, Last tetanus immunization: > 10 years ago Flu vaccine is not up to date. - Social history:: Smoking status: Patient denies any tobacco usage or history of. Patient uses alcohol, but reports only rare drinking. Patient/guardian denies using street drugs. ROS: 20:20 Constitutional: Negative for body aches, chills, fever, poor PO intake, cp 20:20 Cardiovascular: Positive for chest pain, cp 20:20 Eyes: Negative for injury, pain, redness, and discharge, cp 20:20 ENT: Negative for drainage from ear(s), ear pain, sore throat, difficulty swallowing, difficulty handling secretions, 20:20 Respiratory: Negative for cough, shortness of breath, wheezing, 20:20 Abdomen/GI: Negative for abdominal pain, vomiting, diarrhea, constipation, 20:20 Back: Negative for pain at rest, pain with movement, radiated pain, 20:20 Neuro: Negative for altered mental status, dizziness, headache, numbness, syncope, near syncope, weakness, 20:20 All other systems are negative, Exam: 20:25 ECG was reviewed by the Attending Physician. cp 20:27 Constitutional: The patient appears in no acute distress, alert, awake, cp non-diaphoretic, non-toxic, well developed, well nourished, obese, 20:27 Head/Face: Normocephalic, atraumatic. cp 20:27 Eyes: Periorbital structures: appear normal, Pupils: equal, round, and reactive to light and accomodation, Extraocular movements: intact throughout, Conjunctiva: normal, no exudate, no injection, Sclera: no appreciated abnormality, Lids and lashes: appear normal, bilaterally, 20:27 ENT: External ear(s): are unremarkable, Nose: is normal, Mouth: Lips: moist, Oral mucosa: pink and intact, moist, Posterior pharynx: is normal, airway is patent, no erythema, no exudate, 20:27 Chest/axilla: Inspection: normal, Palpation: is normal, no crepitus, no tenderness, 20:27 Cardiovascular: Rate: normal, Rhythm: regular, Pulses: Pulses are 2+ in right radial artery and left radial artery. Edema: is not appreciated, JVD: is not appreciated, 20:27 Respiratory: the patient does not display signs of respiratory distress, Respirations: normal, no use of accessory muscles, no retractions, labored breathing, is not present, Breath sounds: are clear throughout, no decreased breath sounds, no stridor, no wheezing, 20:27 Abdomen/GI: Inspection: obese Palpation: abdomen is soft and non-tender, in all quadrants, 20:27 Back: pain, is absent, ROM is normal, 20:27 Skin: no rash present. 20:27 Neuro: Orientation: to person, place \T\ time. Mentation: is normal, Cerebellar function: is grossly normal, Motor: moves all fours, strength is normal, Sensation: is normal, Vital Signs: 20:03 BP 145 / 94; Pulse 79; Resp 16; Temp 98.1; Pulse Ox 99% on R/A; Weight 129.27 kg; pf1 Height 6 ft. 0 in. ; Pain 2/10; 20:03 Body Mass Index 38.65 (129.27 kg, 182.88 cm) pf1 20:03 Pain Scale: Adult pf1 MDM: 20:22 Patient medically screened. jody 21:51 Data reviewed: vital signs, nurses notes, lab test result(s), EKG, radiologic studies, cp plain films. 21:51 Differential diagnosis: hypertensive crisis, Malignant HTN, acute MT, anxiety. cp Consideration of Admission/Observation Escalation of care including admission/observation considered. I considered the following discharge prescriptions or medication management in the emergency department Medications were administered in the Emergency Department. See MAR. Care significantly affected by the following chronic conditions: Hypertension, Obesity. 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 Response to treatment: the patient's symptoms have markedly improved after treatment, and as a result, I will discharge patient. 09/10 20:13 Order name: Basic Metabolic Panel; Complete Time: 21:22 09/10 21:22 Interpretation: Normal except: K 3.3; CL 108; GLUC 118; GFR 86. cp 09/10 20:13 Order name: CBC with Diff; Complete Time: 21:22 cp 09/10 20:13 Order name: Magnesium; Complete Time: 21:22 cp 09/10 20:13 Order name: NT PRO-BNP; Complete Time: 21:22 cp 09/10 20:13 Order name: Troponin HS; Complete Time: 21:22 cp 09/10 20:13 Order name: UDS; Complete Time: 21:22 cp 09/10 20:13 Order name: Urinalysis W/Microscopic; Complete Time: 21:22 cp 09/10 20:13 Order name: XRAY Chest (1 view); Complete Time: 21:35 cp 09/10 20:13 Order name: EKG; Complete Time: 20:14 cp 09/10 20:13 Order name: Cardiac monitoring; Complete Time: 21:01 cp 09/10 20:13 Order name: EKG - Nurse/Tech; Complete Time: 20:24 cp 09/10 20:13 Order name: IV Saline Lock; Complete Time: 20:59 cp 09/10 20:13 Order name: Labs collected and sent; Complete Time: 20:59 cp 09/10 20:13 Order name: O2 Per Protocol; Complete Time: 21:01 cp 09/10 20:13 Order name: O2 Sat Monitoring; Complete Time: 21:01 cp EC:25 Rate is 69 beats/min. Rhythm is regular. LA interval is normal. QRS interval is normal. cp QT interval is normal. Interpreted by me. Reviewed by me. Administered Medications: 21:01 Drug: LORazepam PO 1 mg PO once Route: PO; bp 21:56 Follow up: Response: No adverse reaction bp 21:35 Drug: Aspirin PO Chewable Tablet 324 mg PO once; 81 mg tablets x 4 Route: PO; bp 21:56 Follow up: Response: No adverse reaction bp 21:56 Drug: Potassium PO Effervescent Tablet 50 mEq PO once; dissolve in 4 ounces of water or bp juice Route: PO; 21:57 Follow up: Response: Medication administered at discharge. bp Disposition Summary: 09/10/23 21:52 Discharge Ordered Notes: Location: Home cp Problem: new cp Symptoms: have improved cp Condition: Stable cp Diagnosis - Hypertensive heart disease without heart failure cp - Chest pain, unspecified cp - Anxiety disorder, unspecified cp Followup: cp - With: Ovidio Oscar MD - When: 2 - 3 days - Reason: Recheck today's complaints Discharge Instructions: - Nonspecific Chest Pain, Adult cp - Hypertension, Adult cp - Aspirin and Your Heart cp - Generalized Anxiety Disorder, Adult cp - Form - Blood Pressure Record Sheet cp - How to Take Your Blood Pressure cp - Managing Anxiety, Adult cp - Discharge Summary Sheet bp Forms: - Medication Reconciliation Form cp - Thank You Letter cp - Antibiotic Education cp - Prescription Opioid Use cp - Patient Portal Instructions cp - Leadership Thank You Letter cp - Work release form bp Signatures: Dispatcher [employer] George Bauer MD MD cha Page, Corey, PA PA cp Martin Robbins RN RN bp Vita Walker, DANNIELLE RN pf1 Corrections: (The following items were deleted from the chart) 20:17 20:15 PMHx: pre-diabetic (retinal detachment SX x 2); pf1 pf1
[2023-09-10] MEDS ORDERED: POTASSIUM 25 MEQ EFFERV TAB ONE (22:15)
[2023-09-10 22:24] VITALS: BP 145/94; TEMP 98.1; O2SAT 99
--- NOTE | 2023-09-11 15:44 | EKG ---
Test Date: 2023-09-10 Test Time: 20:19:52 Harvesting Supervisor: WALLY MEASUREMENT RESULTS: Intervals: Rate: 69 RI: 162 QRSD: 90 QT: 384 QTc: 411 Brooten: P: 38 RI: 162 QRS: 61 T: 14 INTERPRETIVE STATEMENTS: Normal sinus rhythm Anterior infarct, age undetermined Abnormal ECG Compared to ECG 07/05/2023 21:44:44 Sinus bradycardia no longer present Myocardial infarct finding still present Electronically Signed On 09-11-23 15:42:12 CDT by Ovidio Oscar
== END 2023-09-10 22:20 | disposition home or self-care (01) ==
LOC: ER 19:49
DX: I11.9 Hypertensive heart disease without heart failure (principal); I10 Essential (primary) hypertension; E78.5 Hyperlipidemia, unspecified; F41.9 Anxiety disorder, unspecified; R07.9 Chest pain, unspecified
CPT/HCPCS: 36415; 71045; 80048; 80307; 81001; 83735; 83880; 84484; 85025; 93005; 99284

== ENCOUNTER 2023-09-15 09:59 | Emergency (ER) | payer BC ==
--- OUTSIDE RECORDS SUMMARY | 2023-09-15 10:02 | XMS REPORT | Continuity of Care Document ---
:1980 Author Organization [facility] t Address [address] [place] [address] Care Team Providers Name Role Phone Tati Alexander Primary Care Physician Jad Torre Attending Clinician Unavailable Doctor Unassigned, [place] Attending Clinician Unavailable Vita Nielsen NP Attending Clinician Payers Payer Name Policy Type Policy Number Effective Date Expiration Date S ource Blue Cross 6 [id number] [facility] Blue Cross 6 [id number] 2020 [facility] t Blue Shield of 00:00:00 - [facility] Problems Condition Condition Condition Status Onset Resolution Last Treating Co mments Source Name Details Category Date Date Treatment Clinician Date [id number] Body mass Problem Com mon index Spirit [BMI] - [facility] 40.0-44.9, [facility] [id number] Morbid Problem Commo n 9104 (severe) Spirit obesity - [facility] due to [facility] [id number] Essential Problem Comm on hypertensi [facility] on - [facility] [id number] Hypercalce Problem Com mon sara [facility] - [facility] [id number] Erectile Problem Comm on dysfunctio Spirit n, - [facility]I unspecifie St erectile [facility] dysfunctio Medica l n type Center [id number] Right Problem Commo n [id number] retinal [facility] detachment - [facility] [id number] Primary Problem Common insomnia [facility] [id number] ELBA Problem Common (generaliz Spirit ed anxiety - [facility] disorder) [facility] [id number] Mixed Problem Common hyperlipid [facility] No known No known Disease Unive rs active active ity of problems problems [facility] Allergies, Adverse Reactions, Alerts Allergy Allergy Status Severity Reaction(s) Onset Inactive Treating Comm ents Source Name Type Date Date Clinician NO KNOWN Drug Active Univers ALLERGIE Class ity of [facility] Social History Social Habit Start Date Stop Date Quantity Comments Source History of Tobacco [facility] - [facility] Use [facility] Sex Assigned At Com mon [facility]I [facility] to 2020-05-11 2020-06-10 Yes [facility] SARS-CoV-2 (event) 00:00:00 10:53[facility] Smoking Status Start Date Stop Date Source Never Smoker Common [facility] Tobacco smoking consumption [facility] Medications Ordered Filled Start [...] eded} MG No known No Univers medications [facility] Vital Signs Vital Name Observation Time Observation Value Comments Source height 2022-12-16 15:20:00 72 [in_i] [facility] weight 2022-12-16 15:20:00 304 [lb_av] [facility] temperature 2022-12-16 15:20:00 97.8 [degF] [facility] bmi 2022-12-16 15:20:00 41.23 kg/m2 [facility] blood pressure 2022-12-16 15:20:00 125 mm[Hg] [facility] - systolic [facility] blood pressure 2022-12-16 15:20:00 89 mm[Hg] [facility] - diastolic [facility] height 2022-05-13 08:50:00 72 [in_i] Common [facility] weight 2022-05-13 08:50:00 300 [lb_av] [facility] temperature 2022-05-13 08:50:00 98.4 [degF] Common S pirit [facility] bmi 2022-05-13 08:50:00 40.68 kg/m2 [facility] blood pressure 2022-05-13 08:50:00 125 mm[Hg] Common [facility] - systolic [facility] blood pressure 2022-05-13 08:50:00 85 mm[Hg] Common [facility] - diastolic [facility] height 2022-01-16 08:00:00 72 [in_i] [facility] weight 2022-01-16 08:00:00 304.1 [lb_av] [facility] temperature 2022-01-16 08:00:00 97.4 [degF] [facility] bmi 2022-01-16 08:00:00 41.24 kg/m2 [facility] oximetry 2022-01-16 08:00:00 98 % [facility] respiratory rate 2022-01-16 08:00:00 17 /min Comm on [facility] blood pressure 2022-01-16 08:00:00 135 mm[Hg] Common [facility] - systolic [facility] blood pressure 2022-01-16 08:00:00 79 mm[Hg] Common [facility] - diastolic [facility] height 2021-11-13 10:40:00 72 [in_i] [facility] weight 2021-11-13 10:40:00 307.1 [lb_av] [facility] bmi 2021-11-13 10:40:00 41.65 kg/m2 Common [facility] height 2021-10-15 13:50:00 72 [in_i] [facility] weight 2021-10-15 13:50:00 307.1 [lb_av] Common [facility] temperature 2021-10-15 13:50:00 98.4 [degF] Common S [facility] bmi 2021-10-15 13:50:00 41.65 kg/m2 Common S [facility] oximetry 2021-10-15 13:50:00 96 % Common S [facility] respiratory rate 2021-10-15 13:50:00 17 /min Comm on [facility] blood pressure 2021-10-15 13:50:00 132 mm[Hg] Common [facility] - systolic [facility] blood pressure 2021-10-15 13:50:00 82 mm[Hg] Common [facility] - diastolic [facility] Systolic blood 2020-06-10 16:29:00 147 mm[Hg] Univer sity of pressure [facility] Diastolic blood 2020-06-10 16:29:00 101 mm[Hg] Unive rsity of [facility] Heart rate 2020-06-10 16:29:00 79 /min [facility] Respiratory rate 2020-06-10 16:29:00 17 /min [facility] Oxygen saturation in 2020-06-10 16:29:00 96 /min [facility] Arterial blood by [facility] Pulse oximetry Branch Body temperature 2020-06-10 15:56:[address] [facility] [place] [facility] Body height 2020-06-10 15:56:00 182.9 cm [facility] Body weight 2020-06-10 15:56:00 136.079 kg [facility] BMI 2020-06-10 15:56:00 40.69 kg/m2 [facility] Systolic blood 2020-06-10 16:29:00 147 mm[Hg] Univer sity of pressure [facility] Diastolic blood 2020-06-10 16:29:00 101 mm[Hg] Unive rsity of [facility] Heart rate 2020-06-10 16:29:00 79 /min [facility] Respiratory rate 2020-06-10 16:29:00 17 /min [facility] Oxygen saturation in 2020-06-10 16:29:00 96 /min [facility] Arterial blood by [facility] Pulse oximetry Branch Body temperature 2020-06-10 15:56:00 38.28 Zoe [facility] Body height 2020-06-10 15:56:00 182.9 cm [facility] Body weight 2020-06-10 15:56:00 136.079 kg [facility] BMI 2020-06-10 15:56:00 40.69 kg/m2 [facility] Procedures Procedure Date / Time Performed Performing Clinician Sourc e NOTICE OF PRIVACY 2020-06-10 15:39:42 Doctor Unassigned, No [facility] PRACTICES Name [facility] CONSENT/REFUSAL FOR 2020-06-10 15:39:21 Doctor Unassigned, No [facility] DIAGNOSIS AND Name Medical Branch TREATMENT Encounters Start End Encounter Admission Attending Care Care Encounter Source Date/Time Date/Time Type Type Clinicians Facility Department ID 2022-12-12 [facility] [id number] Common 10:52:01 Jad [id number] [facility] 2022-09-09 Out[facility] Torre[facility] [id number] Common 15:56:00 Jad [facility] 2022-01-15 Outpatient Torre, [facility] [id number] Common 11:07:01 Jad [facility] 2021-12-11 Outpatient Torre, [facility] [id number] Common 14:29:14 Jad [id number] [facility] 2021-12-11 Outpatient Torre, [facility] [id number] Common 14:28:58 Jad [id number] [facility] 2021-12-11 Outpatient Torre, [facility] [id number] Common 13:22:50 Jad [id number] [facility] 2021-12-11 Outpatient Torre, [facility] [id number] Common 12:44:56 Jad [id number] [facility] 2021-12-11 Outpatient Torre, STLMLC ST[facility]C [id number] Common 12:39:48 Jad [id number] [facility] 2021-12-11 Outpatient Torre, STLMLC STL[facility]C [id number] Common 12:39:19 Jad [id number] [facility] 2021-12-11 Outpatient Torre, STLMLC STLMLC [id number] Common 12:37:07 Jad [id number] [facility] 2021-12-11 Outpatient Torre, STLMLC STLMLC [id number] Common 12:12:57 Jad [id number] [facility] 2021-12-11 Outpatient Torre, STLMLC STLMLC [id number] Common 12:12:47 Jad [id number] [facility] 2021-12-11 Outpatient Torre, STLMLC STLMLC [id number] Common 12:05:15 Jad [id number] [facility] 2021-12-11 Outpatient Torre, STLMLC STLMLC [id number] Common 12:04:46 Jad [id number] [facility] 2022-12-16 2022-12-16 OFFICE STLMLC STLMLC [id number] Co mmon 00:00:00 00:00:00 VISIT [facility] PT - CHI LEVEL [address] [place] [address] 2022-09-09 2022-09-09 (TEL) STLMLC STLMLC [id number] Co mmon 00:00:00 00:00:00 [facility] 2022-07-07 2022-07-07 (TEL) STLMLC STLMLC [id number] Co mmon 00:00:00 00:00:00 [facility] 2022-06-30 2022-06-30 (TEL) STLMLC STLMLC [id number] Co mmon 00:00:00 00:00:00 [facility] 2022-05-13 2022-05-13 OFFICE STLMLC STLMLC [id number] Co mmon 00:00:00 00:00:00 VISIT Spirit ESTAB PT - CHI LEVEL 4 [facility] 2022-04-29 2022-04-29 (TEL) STLMLC STLMLC [id number] Co mmon 00:00:00 00:00:00 [facility] 2022-01-16 2022-01-16 PREV VISIT STLMLC STLMLC [id number] Common 00:00:00 00:00:00 EST AGE Spirit 40-64 - [facility] 2022-01-15 2022-01-15 (TEL) STLMLC STLMLC [id number] Co mmon 00:00:00 00:00:00 [facility] 2021-11-13 2021-11-13 OFFICE STLMLC STLMLC [id number] Co mmon 00:00:00 00:00:00 VISIT EST Spir it PT LEVEL 3 - [facility] 2021-11-12 2021-11-12 (TEL) STLMLC STLMLC [id number] Co mmon 00:00:00 00:00:00 [facility] 2021-10-15 2021-10-15 OFFICE STLMLC STLMLC [id number] Co mmon 00:00:00 00:00:00 VISIT Spirit ESTAB PT - CHI LEVEL 4 [facility] 2021-09-04 2021-09-04 (TEL) STLMLC STLMLC [id number] Co mmon 00:00:00 00:00:00 [facility] 2021-05-31 2021-05-31 Outpatient STLMLC STLMLC [id number] Common 00:00:00 00:00:00 [facility] 2021-03-22 2021-03-22 Outpatient STLMLC STLMLC [id number] Common 00:00:00 00:00:00 [facility] 2021-03-18 2021-03-18 Outpatient STLMLC STLMLC [id number] Common 00:00:00 00:00:00 [facility] 2021-01-28 2021-01-28 Outpatient STLMLC STLMLC [id number] Common 00:00:00 00:00:00 [facility] 2020-10-29 2020-10-29 Outpatient STLMLC STLC [id number] Common 00:00:00 00:00:00 [facility] 2020-09-27 2020-09-27 Outpatient STLMLC STLC [id number] Common 00:00:00 00:00:00 [facility] 2020-06-12 2020-06-12 Patient Doctor VIRGIE [id number] Univers 00:00:00 00:00:00 Secure Msg Unassigned, CONOR [id number] ity of [facility] [id number] Lux [id number] [facility] 019 Branch 2020-06-10 2020-06-10 Emergency [facility] [id number] [facility] 11:06:15 11:47:00 Vita Ty [id number] ity of [place] [id number] [facility] [id number] [facility] [address] Branch 2020-06-10 2020-06-10 Emergency [facility] [id number] 11:06:15 11:47:00 Vita Ty [id number] [place] [id number] [place] [id number] [facility] 2020-06-10 2020-06-10 Emergency X [facility] ERT [id number] Univers 10:39:00 10:39:00 ity of [facility] Results This patient has no known results.
--- NOTE | 2023-09-15 10:26 | EDPHYS ---
Physician Documentation [facility] Name: Seferino Park Jr Age: 43 yrs Sex: Male : 1980 Arrival Date: 09/15/2023 Time: 09:59 Bed 10 Private MD: ED Physician Jesus Aguirre HPI: 09/15 10:21 This 43 yrs old Male presents to ER via Ambulatory with complaints of anxiety, rn Palpitations. 10:22 The patient presents to the emergency department with anxiety. Onset: The rn symptoms/episode began/occurred at an unknown time. Associated signs and symptoms: Pertinent positives; anxiety, Pertinent negatives: chest pain, fever, hallucinations, homicidal ideation, paranoia, shortness of breath, substance abuse, suicide ideation. Severity of symptoms: At their worst the symptoms were moderate in the emergency department the symptoms have improved. The patient has experienced similar episodes in the past. Patient reports has generalized anxiety disorder, has been seen multiple times for this, last time prescribed Ativan and still has some, worse over the last few days. No suicidal or homicidal ideations. Here to see if there is any other prescription we can start for his symptoms. Also reports at times tearful and emotional and possible depression as well.. Historical: - Allergies: 10:10 No Known Allergies; jl7 - Home Meds: 10:10 Mounjaro subcutaneous [Active]; jl7 10:12 hydroxyzine HCl 25 mg Oral tablet [Active]; jl7 10:21 pravastatin 20 mg oral tablet [Active]; lisinopril-hydrochlorothiazide 20-25 mg Oral jl7 tab 1 tab once daily [Active]; amlodipine 10 mg tab 1 tab once daily [Active]; nebivolol 20 mg Oral tab 1 tab once daily [Active]; - PMHx: 10:10 Anxiety; Depression; Hyperlipidemia; Hypertension; jl7 - PSHx: 10:10 retinal detachment SX x 2; testicular surgery; jl7 - Immunization history:: Adult Immunizations unknown. - Social history:: Smoking status: unknown. - Family history:: not pertinent. - Hospitalizations: : No recent hospitalization is reported. ROS: 10:22 Constitutional: Negative for fever, chills, and weight loss, Eyes: Negative for injury, rn pain, redness, and discharge, Neck: Negative for injury, pain, and swelling, Cardiovascular: Negative for chest pain, and edema, Respiratory: Negative for shortness of breath, cough, wheezing, and pleuritic chest pain, Abdomen/GI: Negative for abdominal pain, nausea, vomiting, diarrhea, and constipation, MS/Extremity: Negative for injury and deformity, Skin: Negative for injury, rash, and discoloration, Neuro: Negative for headache, weakness, numbness, tingling, and seizure, Exam: 10:22 Constitutional: This is a well developed, well nourished patient who is awake, alert, rn and in no acute distress. Head/Face: Normocephalic, atraumatic. Cardiovascular: Regular rate and rhythm. No pulse deficits. Respiratory: No increased work of breathing, no retractions or nasal flaring. Abdomen/GI: Soft, non-tender MS/ Extremity: Pulses equal, no cyanosis. Neuro: Awake and alert, GCS 15, oriented to person, place, time, and situation. Cranial nerves II-XII grossly intact. Motor strength 5/5 in all extremities. Sensory grossly intact. Cerebellar exam normal. Normal gait. Vital Signs: 10:07 BP 159 / 87; Pulse 77; Resp 15; Temp 98.2; Pulse Ox 99% ; jl7 MDM: 10:05 Patient medically screened. rn 10:22 Differential diagnosis: depression, Anxiety. Data reviewed: vital signs, nurses notes, rn old medical records, and as a result, I will discharge patient. Counseling: I had a detailed discussion with the patient and/or guardian regarding the historical points, exam findings, and any diagnostic results supporting the discharge/admit diagnosis, the need for outpatient follow up, to return to the emergency department if symptoms worsen or persist or if there are any questions or concerns that arise at home. Special discussion: I discussed with the patient/guardian in detail that at this point there is no indication for admission to the hospital. It is understood, however, that if the symptoms persist or worsen the patient needs to return immediately for re-evaluation. Based on the history and exam findings, there is no indication for further emergent testing or inpatient evaluation. I discussed with the patient/guardian the need to see the primary care provider for further evaluation of the symptoms. I discussed with the patient/guardian the need to see the psychiatrist for further evaluation of the symptoms. ED course: Symptoms identical to previous anxiety episodes. Stable vital signs. Did not take his blood pressure medicine this morning and his reason for his mild hypertension. Normal neurological exam. Offered patient to write prescription for antidepressant for his anxiety disorder as well as some depression versus following up with PCP or psychiatrist, patient concerned about timing of follow-up and request prescription here.. 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
--- NOTE | 2023-09-15 10:26 | ER ---
Nurse's Notes [facility] Name: Seferino Park Jr Age: 43 yrs Sex: Male : 1980 Arrival Date: 09/15/2023 Time: 09:59 Bed 10 Private MD: Diagnosis: Generalized anxiety disorder Presentation: 09/15 10:07 Chief complaint: Patient states: Seen last for high blood pressure, also had jl7 tingling to left facial cheek and left finger tips. BP has been normal since discharge but still has tingling sensation, also feels palpitations. Coronavirus screen: At this time, the client does not indicate any symptoms associated with coronavirus-19. Ebola Screen: No symptoms or risks identified at this time. Initial Sepsis Screen: Does the patient meet any 2 criteria? No. Patient's initial sepsis screen is negative. Does the patient have a suspected source of infection? No. Patient's initial sepsis screen is negative. Risk Assessment: Do you want to hurt yourself or someone else? Patient reports no desire to harm self or others. Onset of symptoms is unknown. 10:07 Method Of Arrival: Ambulatory jl7 10:07 Acuity: ALEXIS 3 jl7 Triage Assessment: 10:10 General: Appears in no apparent distress. uncomfortable, Behavior is calm, cooperative, jl7 appropriate for age. Pain: Denies pain. Neuro: Level of Consciousness is awake, alert, obeys commands, Oriented to person, place, time, situation, [place] are equal bilaterally Moves all extremities. Full function Gait is steady, Speech is normal, Facial symmetry appears normal. Cardiovascular: Patient's skin is warm and dry. Respiratory: Airway is patent Respiratory effort is even, unlabored, Respiratory pattern is regular, symmetrical. Derm: Skin is pink, warm \T\ dry. Historical: - Allergies: 10:10 No Known Allergies; jl7 - Home Meds: 10:10 Mounjaro subcutaneous [Active]; jl7 10:12 hydroxyzine HCl 25 mg Oral tablet [Active]; jl7 10:21 pravastatin 20 mg oral tablet [Active]; lisinopril-hydrochlorothiazide 20-25 mg Oral jl7 tab 1 tab once daily [Active]; amlodipine 10 mg tab 1 tab once daily [Active]; nebivolol 20 mg Oral tab 1 tab once daily [Active]; - PMHx: 10:10 Anxiety; Depression; Hyperlipidemia; Hypertension; jl7 - PSHx: 10:10 retinal detachment SX x 2; testicular surgery; jl7 - Immunization history:: Adult Immunizations unknown. - Social history:: Smoking status: unknown. - Family history:: not pertinent. - Hospitalizations: : No recent hospitalization is reported. Screenin:10 [facility] ED Fall Risk Assessment (Adult) Score/Fall Risk Level 0 - 2 = Low Risk jl7 Oriented to surroundings, Maintained a safe environment. Abuse screen: Denies threats or abuse. Denies injuries from another. Nutritional screening: No deficits noted. Tuberculosis screening: No symptoms or risk factors identified. Assessment: 10:10 Reassessment: Dr. Aguirre in triage assessing pt. jl7 Vital Signs: 10:07 BP 159 / 87; Pulse 77; Resp 15; Temp 98.2; Pulse Ox 99% ; jl7 ED Course: 10:00 Patient arrived in ED. mg5 10:05 Jesus Aguirre MD is Attending Physician. rn 10:10 Triage completed. jl7 10:10 Patient has correct armband on for positive identification. Provided Education on: jl7 Anxiety. 10:10 No provider procedures requiring assistance completed. Patient did not have IV access jl7 during this emergency room visit. 10:12 Arm band placed on right wrist. Patient placed. jl7 10:23 Maureen Portillo is Primary Nurse. cp4 Administered Medications: No medications were administered Medication: 10:10 VIS not applicable for this client. jl7 Outcome: 10:25 Discharge ordered by . rn 10:32 Discharged to home ambulatory, cp4 10:32 Condition: stable 10:32 Discharge instructions given to patient, Instructed on discharge instructions, follow up and referral plans. medication usage, Demonstrated understanding of instructions, follow-up care, medications, Prescriptions given X 1, 10:33 Patient left the ED. cp4 Signatures: Jesus Aguirre MD MD rn Leal, Jahala, RN RN jl7 Latoya Ruiz 5 Maureen Portillo cp4
[2023-09-15 10:38] VITALS: BP 159/87; TEMP 98.2; O2SAT 99
== END 2023-09-15 10:33 | disposition home or self-care (01) ==
LOC: ER 09:59
DX: F41.1 Generalized anxiety disorder (principal); I10 Essential (primary) hypertension; E78.5 Hyperlipidemia, unspecified
CPT/HCPCS: 99283

== ENCOUNTER 2023-11-26 11:22 | Inpatient (IN) | payer BC ==
--- OUTSIDE RECORDS SUMMARY | 2023-11-26 11:25 | XMS REPORT | Continuity of Care Document ---
Author Name Unknown Address [address] [facility] [address] [place] [address] [facility] thconnect Address [address] [facility] [place] [address] Care Team Providers Care Atmospheric Scientist Name Role Phone Benjamin Tati Jacques Primary Care Physician Jad Torre Attending Clinician Unavailable Doctor Unassigned, [place] Attending Clinician U Vita Mojica NP Attending Clinician [phone] Payers Payer Name Policy Type Policy Number Effective Date Expirati on Date Source [facility] 6 [id number] [facility] 6 [id number] 2020 00:00:00 [facility] Problems Condition Name Condition Details Condition Category Status Onset Date Resolution Date Last Treatment Date Treating Clinician Comments Source No known active problems No known active problems [facility] [id number] Body mass index [BMI] 40.0-44.9, adult Problem [facility] [id number] Morbid (severe) obesity due to excess calories Problem [facility] [id number] Essential hypertensi on Problem [facility] [id number] Hypercalce sara Problem [facility] [id number] Erectile dysfunctio n, unspecifie d erectile dysfunctio n type Problem [facility] [id number] Right retinal detachment Problem [facility] [id number] Primary insomnia Problem [facility] [id number] ELBA (generaliz ed anxiety disorder) Problem [facility] [id number] Mixed hyperlipid emia Problem [facility] Allergies, Adverse Reactions, Alerts Allergy Name Allergy Type Status Severity Reaction(s) Onset Date Inactive Date Treating Clinician Comments Source NO KNOWN ALLERGIE S Drug Class [facility] Social History Social Habit Start Date Stop Date Quantity Comments Source Sexual orientation [facility] History of Tobacco Use [facility] Sex Assigned At [facility] Exposure to SARS-CoV-2 (event) 2020-05-11 00:00:00 2020-06-10 10:53:00 Yes [facility] Smoking Status Start Date Stop Date Source Never Smoker [facility] Tobacco smoking consumption unknown [facility] Medications Ordered Medication Name Filled Medication Name Start Date Stop Date Current Medication? Ordering Clinician Indication Dosage Frequency Signature (SIG) Comments Components Source Nebivolol HCl 20 MG Nebivolol HCl 20 MG 2020-11 00:00: 00 No 1{table t} QD Nebivolol HCl 20 MG Nebivolol HCl 20 MG Nebivolol HCl 20 MG 2020-11 00:00: 00 No 1{table t} QD Nebivolol HCl 20 MG Nebivolol HCl 20 MG Nebivolol HCl 20 MG 2020-11 00:00: 00 No 1{table t} QD Nebivolol HCl 20 MG Nebivolol HCl 20 MG 2020-11 00:00: 00 No 1{table t} QD Nebivolol HCl 20 MG No known medications No Un elvira [facility] Lisinopril- hydroCHLORO thiazide 20-25 MG Lisinopril- hydroCHLORO thiazide 20-25 MG No 1{table t} QD Lisinopril -hydroCHLO ROthiazide 20-25 MG Pravastatin Sodium 20 MG Pravastatin Sodium 20 MG No 1{table t} QD Pravastati n Sodium 20 MG hydrOXYzine Pamoate 25 MG hydrOXYzine Pamoate 25 MG No 1{capsu le_as_n eeded} TID hydrOXYzin e Pamoate 25 MG Sildenafil Citrate 100 MG Sildenafil Citrate 100 MG No 1{table t_as_ne eded} QD Sildenafil Citrate 100 MG amLODIPine Besylate 10 MG amLODIPine Besylate 10 MG No 1{table t} QD amLODIPine Besylate 10 MG Amitriptyli ne HCl 10 MG Amitriptyli ne HCl 10 MG No 1{table t_at_be dtime} QD Amitriptyl ine HCl 10 MG hydrOXYzine HCl 25 MG hydrOXYzine HCl 25 MG No 1{table t_as_ne eded} QID hydrOXYzin e HCl 25 MG Lisinopril- hydroCHLORO thiazide 20-25 MG Lisinopril- hydroCHLORO thiazide 20-25 MG No 1{table t} QD Lisinopril -hydroCHLO ROthiazide 20-25 MG Pravastatin Sodium 20 MG Pravastatin Sodium 20 MG No 1{table t} QD Pravastati n Sodium 20 MG hydrOXYzine Pamoate 25 MG hydrOXYzine Pamoate 25 MG No 1{capsu le_as_n eeded} TID hydrOXYzin e Pamoate 25 MG Sildenafil Citrate 100 MG Sildenafil Citrate 100 MG No 1{table t_as_ne eded} QD Sildenafil Citrate 100 MG hydrOXYzine Pamoate 25 MG hydrOXYzine Pamoate 25 MG No 1{capsu le_as_n eeded} TID hydrOXYzin e Pamoate 25 MG Amitriptyli ne HCl 10 MG Amitriptyli ne HCl 10 MG No 1{table t_at_be dtime} QD Amitriptyl ine HCl 10 MG Pravastatin Sodium 20 MG Pravastatin Sodium 20 MG No 1{table t} QD Pravastati n Sodium 20 MG hydrOXYzine HCl 25 MG hydrOXYzine HCl 25 MG No 1{table t_as_ne eded} QID hydrOXYzin e HCl 25 MG Lisinopril- hydroCHLORO thiazide 20-25 MG Lisinopril- hydroCHLORO thiazide 20-25 MG No 1{table t} QD Lisinopril -hydroCHLO ROthiazide 20-25 MG Nebivolol HCl 20 MG Nebivolol HCl 20 MG No 1{table t} QD Nebivolol HCl 20 MG amLODIPine Besylate 10 MG amLODIPine Besylate 10 MG No 1{table t} QD amLODIPine Besylate 10 MG Amitriptyli ne HCl 10 MG Amitriptyli ne HCl 10 MG No Amitriptyl ine HCl 10 MG Lisinopril- hydroCHLORO thiazide 20-25 MG Lisinopril- hydroCHLORO thiazide 20-25 MG No Lisinopril -hydroCHLO ROthiazide 20-25 MG hydrOXYzine HCl 25 MG hydrOXYzine HCl 25 MG No 1{table t_as_ne eded} QID hydrOXYzin e HCl 25 MG hydrOXYzine Pamoate 25 MG hydrOXYzine Pamoate 25 MG No 1{capsu le_as_n eeded} TID hydrOXYzin e Pamoate 25 MG Pravastatin Sodium 20 MG Pravastatin Sodium 20 MG No Pravastati n Sodium 20 MG amLODIPine Besylate 10 MG amLODIPine Besylate 10 MG No amLODIPine Besylate 10 MG Nebivolol HCl 20 MG Nebivolol HCl 20 MG No 1{table t} QD Nebivolol HCl 20 MG Lisinopril- hydroCHLORO thiazide 20-25 MG Lisinopril- hydroCHLORO thiazide 20-25 MG No Lisinopril -hydroCHLO ROthiazide 20-25 MG Amitriptyli ne HCl 25 MG Amitriptyli ne HCl 25 MG No 1{table t_at_be dtime} QD Amitriptyl ine HCl 25 MG hydrOXYzine Pamoate 25 MG hydrOXYzine Pamoate 25 MG No 1{capsu le_as_n eeded} TID hydrOXYzin e Pamoate 25 MG Sildenafil Citrate 100 MG Sildenafil Citrate 100 MG No 1{table t_as_ne eded} QD Sildenafil Citrate 100 MG Amitriptyli ne HCl 10 MG Amitriptyli ne HCl 10 MG No Amitriptyl ine HCl 10 MG Pravastatin Sodium 20 MG Pravastatin Sodium 20 MG No 1{table t} QD Pravastati n Sodium 20 MG amLODIPine Besylate 10 MG amLODIPine Besylate 10 MG No amLODIPine Besylate 10 MG Lisinopril- hydroCHLORO thiazide 20-25 MG Lisinopril- hydroCHLORO thiazide 20-25 MG No 1{table t} QD Lisinopril -hydroCHLO ROthiazide 20-25 MG Nebivolol HCl 20 MG Nebivolol HCl 20 MG No 1{table t} QD Nebivolol HCl 20 MG hydrOXYzine HCl 25 MG hydrOXYzine HCl 25 MG No 1{table t_as_ne eded} QID hydrOXYzin e HCl 25 MG Pravastatin Sodium 20 MG Pravastatin Sodium 20 MG No Pravastati n Sodium 20 MG amLODIPine Besylate 10 MG amLODIPine Besylate 10 MG No 1{table t} QD amLODIPine Besylate 10 MG Lisinopril- hydroCHLORO thiazide 20-25 MG Lisinopril- hydroCHLORO thiazide 20-25 MG No Lisinopril -hydroCHLO ROthiazide 20-25 MG Sildenafil Citrate 100 MG Sildenafil Citrate 100 MG No 1{table t_as_ne eded} QD Sildenafil Citrate 100 MG hydrOXYzine Pamoate 25 MG hydrOXYzine Pamoate 25 MG No hydrOXYzin e Pamoate 25 MG Amitriptyli ne HCl 10 MG Amitriptyli ne HCl 10 MG No QD Amitriptyl ine HCl 10 MG amLODIPine Besylate 10 MG amLODIPine Besylate 10 MG No 1{table t} QD amLODIPine Besylate 10 MG Pravastatin Sodium 20 MG Pravastatin Sodium 20 MG No 1{table t} QD Pravastati n Sodium 20 MG Amitriptyli ne HCl 25 MG Amitriptyli ne HCl 25 MG No 1{table t_at_be dtime} QD Amitriptyl ine HCl 25 MG Lisinopril- hydroCHLORO thiazide 20-25 MG Lisinopril- hydroCHLORO thiazide 20-25 MG No 1{table t} QD Lisinopril -hydroCHLO ROthiazide 20-25 MG Nebivolol HCl 20 MG Nebivolol HCl 20 MG No 1{table t} QD Nebivolol HCl 20 MG hydrOXYzine HCl 25 MG hydrOXYzine HCl 25 MG No 1{table t_as_ne eded} QID hydrOXYzin e HCl 25 MG Pravastatin Sodium 20 MG Pravastatin Sodium 20 MG No Pravastati n Sodium 20 MG amLODIPine Besylate 10 MG amLODIPine Besylate 10 MG No amLODIPine Besylate 10 MG hydrOXYzine HCl 25 MG hydrOXYzine HCl 25 MG No 1{table t_as_ne eded} QID hydrOXYzin e HCl 25 MG Sildenafil Citrate 100 MG Sildenafil Citrate 100 MG No 1{table t_as_ne eded} QD Sildenafil Citrate 100 MG hydrOXYzine Pamoate 25 MG hydrOXYzine Pamoate 25 MG No hydrOXYzin e Pamoate 25 MG Amitriptyli ne HCl 10 MG Amitriptyli ne HCl 10 MG No QD Amitriptyl ine HCl 10 MG amLODIPine Besylate 10 MG amLODIPine Besylate 10 MG No 1{table t} QD amLODIPine Besylate 10 MG Pravastatin Sodium 20 MG Pravastatin Sodium 20 MG No Pravastati n Sodium 20 MG Amitriptyli ne HCl 25 MG Amitriptyli ne HCl 25 MG No 1{table t_at_be dtime} QD Amitriptyl ine HCl 25 MG Lisinopril- hydroCHLORO thiazide 20-25 MG Lisinopril- hydroCHLORO thiazide 20-25 MG No Lisinopril -hydroCHLO ROthiazide 20-25 MG Pravastatin Sodium 20 MG Pravastatin Sodium 20 MG No 1{table t} QD Pravastati n Sodium 20 MG Nebivolol HCl 20 MG Nebivolol HCl 20 MG No 1{table t} QD Nebivolol HCl 20 MG Lisinopril- hydroCHLORO thiazide 20-25 MG Lisinopril- hydroCHLORO thiazide 20-25 MG No 1{table t} QD Lisinopril -hydroCHLO ROthiazide 20-25 MG amLODIPine Besylate 10 MG amLODIPine Besylate 10 MG No amLODIPine Besylate 10 MG hydrOXYzine HCl 25 MG hydrOXYzine HCl 25 MG No 1{table t_as_ne eded} QID hydrOXYzin e HCl 25 MG Sildenafil Citrate 100 MG Sildenafil Citrate 100 MG No 1{table t_as_ne eded} QD Sildenafil Citrate 100 MG Nebivolol HCl 20 MG Nebivolol HCl 20 MG No 1{table t} QD Nebivolol HCl 20 MG Amitriptyli ne HCl 10 MG Amitriptyli ne HCl 10 MG No QD Amitriptyl ine HCl 10 MG Pravastatin Sodium 20 MG Pravastatin Sodium 20 MG No Pravastati n Sodium 20 MG Lisinopril- hydroCHLORO thiazide 20-25 MG Lisinopril- hydroCHLORO thiazide 20-25 MG No Lisinopril -hydroCHLO ROthiazide 20-25 MG Amitriptyli ne HCl 25 MG Amitriptyli ne HCl 25 MG No 1{table t_at_be dtime} QD Amitriptyl ine HCl 25 MG amLODIPine Besylate 10 MG amLODIPine Besylate 10 MG No 1{table t} QD amLODIPine Besylate 10 MG Pravastatin Sodium 20 MG Pravastatin Sodium 20 MG No 1{table t} QD Pravastati n Sodium 20 MG Lisinopril- hydroCHLORO thiazide 20-25 MG Lisinopril- hydroCHLORO thiazide 20-25 MG No 1{table t} QD Lisinopril -hydroCHLO ROthiazide 20-25 MG hydrOXYzine Pamoate 25 MG hydrOXYzine Pamoate 25 MG No hydrOXYzin e Pamoate 25 MG amLODIPine Besylate 10 MG amLODIPine Besylate 10 MG No amLODIPine Besylate 10 MG Pravastatin Sodium 20 MG Pravastatin Sodium 20 MG No 1{table t} QD Pravastati n Sodium 20 MG hydrOXYzine Pamoate 25 MG hydrOXYzine Pamoate 25 MG No hydrOXYzin e Pamoate 25 MG amLODIPine Besylate 10 MG amLODIPine Besylate 10 MG No amLODIPine Besylate 10 MG Sildenafil Citrate 100 MG Sildenafil Citrate 100 MG No 1{table t_as_ne eded} QD Sildenafil Citrate 100 MG Amitriptyli ne HCl 25 MG Amitriptyli ne HCl 25 MG No 1{table t_at_be dtime} QD Amitriptyl ine HCl 25 MG hydrOXYzine HCl 25 MG hydrOXYzine HCl 25 MG No 1{table t_as_ne eded} QID hydrOXYzin e HCl 25 MG Amitriptyli ne HCl 10 MG Amitriptyli ne HCl 10 MG No QD Amitriptyl ine HCl 10 MG hydrOXYzine Pamoate 25 MG hydrOXYzine Pamoate 25 MG No 1{capsu le_as_n eeded} TID hydrOXYzin e Pamoate 25 MG Nebivolol HCl 20 MG Nebivolol HCl 20 MG No 1{table t} QD Nebivolol HCl 20 MG Pravastatin Sodium 20 MG Pravastatin Sodium 20 MG No Pravastati n Sodium 20 MG Lisinopril- hydroCHLORO thiazide 20-25 MG Lisinopril- hydroCHLORO thiazide 20-25 MG No Lisinopril -hydroCHLO ROthiazide 20-25 MG amLODIPine Besylate 10 MG amLODIPine Besylate 10 MG No 1{table t} QD amLODIPine Besylate 10 MG Lisinopril- hydroCHLORO thiazide 20-25 MG Lisinopril- hydroCHLORO thiazide 20-25 MG No 1{table t} QD Lisinopril -hydroCHLO ROthiazide 20-25 MG Pravastatin Sodium 20 MG Pravastatin Sodium 20 MG No 1{table t} QD Pravastati n Sodium 20 MG Amitriptyli ne HCl 25 MG Amitriptyli ne HCl 25 MG No 1{table t_at_be dtime} QD Amitriptyl ine HCl 25 MG Pravastatin Sodium 20 MG Pravastatin Sodium 20 MG No 1{table t} QD Pravastati n Sodium 20 MG amLODIPine Besylate 10 MG amLODIPine Besylate 10 MG No 1{table t} QD amLODIPine Besylate 10 MG Nebivolol HCl 20 MG Nebivolol HCl 20 MG No 1{table t} QD Nebivolol HCl 20 MG hydrOXYzine Pamoate 25 MG hydrOXYzine Pamoate 25 MG No hydrOXYzin e Pamoate 25 MG hydrOXYzine HCl 25 MG hydrOXYzine HCl 25 MG No 1{table t_as_ne eded} QID hydrOXYzin e HCl 25 MG Sildenafil Citrate 100 MG Sildenafil Citrate 100 MG No 1{table t_as_ne eded} QD Sildenafil Citrate 100 MG Lisinopril- hydroCHLORO thiazide 20-25 MG Lisinopril- hydroCHLORO thiazide 20-25 MG No 1{table t} QD Lisinopril -hydroCHLO ROthiazide 20-25 MG amLODIPine Besylate 10 MG amLODIPine Besylate 10 MG No amLODIPine Besylate 10 MG Amitriptyli ne HCl 10 MG Amitriptyli ne HCl 10 MG No QD Amitriptyl ine HCl 10 MG hydrOXYzine Pamoate 25 MG hydrOXYzine Pamoate 25 MG No 1{capsu le_as_n eeded} TID hydrOXYzin e Pamoate 25 MG Lisinopril- hydroCHLORO thiazide 20-25 MG Lisinopril- hydroCHLORO thiazide 20-25 MG No Lisinopril -hydroCHLO ROthiazide 20-25 MG Wegovy 0.25 MG/0.5ML [facility]gov[facility] 0.25 MG/0.5ML No .5{ml} [facility]gov[facility] 0.25 MG/0.5ML Pravastatin Sodium 20 MG Pravastatin Sodium 20 MG No 1{table t} QD Pravastati n Sodium 20 MG Amitriptyli ne HCl 25 MG Amitriptyli ne HCl 25 MG No 1{table t_at_be dtime} QD Amitriptyl ine HCl 25 MG Pravastatin Sodium 20 MG Pravastatin Sodium 20 MG No 1{table t} QD Pravastati n Sodium 20 MG amLODIPine Besylate 10 MG amLODIPine Besylate 10 MG No 1{table t} QD amLODIPine Besylate 10 MG Nebivolol HCl 20 MG Nebivolol HCl 20 MG No 1{table t} QD Nebivolol HCl 20 MG hydrOXYzine Pamoate 25 MG hydrOXYzine Pamoate 25 MG No hydrOXYzin e Pamoate 25 MG hydrOXYzine HCl 25 MG hydrOXYzine HCl 25 MG No 1{table t_as_ne eded} QID hydrOXYzin e HCl 25 MG Sildenafil Citrate 100 MG Sildenafil Citrate 100 MG No 1{table t_as_ne eded} QD Sildenafil Citrate 100 MG Lisinopril- hydroCHLORO thiazide 20-25 MG Lisinopril- hydroCHLORO thiazide 20-25 MG No 1{table t} QD Lisinopril -hydroCHLO ROthiazide 20-25 MG amLODIPine Besylate 10 MG amLODIPine Besylate 10 MG No amLODIPine Besylate 10 MG Amitriptyli ne HCl 10 MG Amitriptyli ne HCl 10 MG No QD Amitriptyl ine HCl 10 MG hydrOXYzine Pamoate 25 MG hydrOXYzine Pamoate 25 MG No 1{capsu le_as_n eeded} TID hydrOXYzin e Pamoate 25 MG Lisinopril- hydroCHLORO thiazide 20-25 MG Lisinopril- hydroCHLORO thiazide 20-25 MG No Lisinopril -hydroCHLO ROthiazide 20-25 MG Wegovy 0.25 MG/0.5ML [facility] 0.25 MG/0.5ML No .5{ml} [facility] 0.25 MG/0.5ML Pravastatin Sodium 20 MG Pravastatin Sodium 20 MG No 1{table t} QD Pravastati n Sodium 20 MG Amitriptyli ne HCl 10 MG Amitriptyli ne HCl 10 MG No 1{table t_at_be dtime} QD Amitriptyl ine HCl 10 MG amLODIPine Besylate 10 MG amLODIPine Besylate 10 MG No 1{table t} QD amLODIPine Besylate 10 MG Bystolic 10 MG Bystolic 10 MG No 1{table t} QD Bystolic 10 MG Sildenafil Citrate 100 MG Sildenafil Citrate 100 MG No 1{table t_as_ne eded} QD Sildenafil Citrate 100 MG hydrOXYzine Pamoate 25 MG hydrOXYzine Pamoate 25 MG No 1{capsu le_as_n eeded} TID hydrOXYzin e Pamoate 25 MG Lisinopril- hydroCHLORO thiazide 20-25 MG Lisinopril- hydroCHLORO thiazide 20-25 MG No 1{table t} QD Lisinopril -hydroCHLO ROthiazide 20-25 MG hydrOXYzine HCl 25 MG hydrOXYzine HCl 25 MG No 1{table t_as_ne eded} QID hydrOXYzin e HCl 25 MG hydrOXYzine HCl 25 MG hydrOXYzine HCl 25 MG No 1{table t_as_ne eded} QID hydrOXYzin e HCl 25 MG hydrOXYzine Pamoate 25 MG hydrOXYzine Pamoate 25 MG No 1{capsu le_as_n eeded} TID hydrOXYzin e Pamoate 25 MG Lisinopril- hydroCHLORO thiazide 20-25 MG Lisinopril- hydroCHLORO thiazide 20-25 MG No 1{table t} QD Lisinopril -hydroCHLO ROthiazide 20-25 MG Amitriptyli ne HCl 10 MG Amitriptyli ne HCl 10 MG No 1{table t_at_be dtime} QD Amitriptyl ine HCl 10 MG amLODIPine Besylate 10 MG amLODIPine Besylate 10 MG No 1{table t} QD amLODIPine Besylate 10 MG Pravastatin Sodium 20 MG Pravastatin Sodium 20 MG No 1{table t} QD Pravastati n Sodium 20 MG Sildenafil Citrate 100 MG Sildenafil Citrate 100 MG No 1{table t_as_ne eded} QD Sildenafil Citrate 100 MG amLODIPine Besylate 10 MG amLODIPine Besylate 10 MG No 1{table t} QD Amitriptyli ne HCl 10 MG Amitriptyli ne HCl 10 MG No 1{table t_at_be dtime} QD hydrOXYzine HCl 25 MG hydrOXYzine HCl 25 MG No 1{table t_as_ne eded} QID Lisinopril- hydroCHLORO thiazide 20-25 MG Lisinopril- hydroCHLORO thiazide 20-25 MG No 1{table t} QD Pravastatin Sodium 20 MG Pravastatin Sodium 20 MG No 1{table t} QD hydrOXYzine Pamoate 25 MG hydrOXYzine Pamoate 25 MG No 1{capsu le_as_n eeded} TID Sildenafil Citrate 100 MG Sildenafil Citrate 100 MG No 1{table t_as_ne eded} QD amLODIPine Besylate 10 MG amLODIPine Besylate 10 MG No 1{table t} QD amLODIPine Besylate 10 MG Amitriptyli ne HCl 10 MG Amitriptyli ne HCl 10 MG No 1{table t_at_be dtime} QD Amitriptyl ine HCl 10 MG hydrOXYzine HCl 25 MG hydrOXYzine HCl 25 MG No 1{table t_as_ne eded} QID hydrOXYzin e HCl 25 MG Vital Signs Vital Name Observation Time Observation Value Comments S ource height 2023-03-10 15:40:00 72 [in_i] Commo n [facility] weight 2023-03-10 15:40:00 306 [lb_av] Comm on [facility] temperature 2023-03-10 15:40:00 97.4 [degF] Com [facility] bmi 2023-03-10 15:40:00 41.5 kg/m2 Commo n [facility] oximetry 2023-03-10 15:40:00 97 % [facility] n [facility] respiratory rate 2023-03-10 15:40:00 16 /min [facility] blood pressure systolic 2023-03-10 15:40:00 138 mm[Hg] Common [facility] blood pressure diastolic 2023-03-10 15:40:00 76 mm[Hg] Common [facility] height 2022-12-16 15:20:00 72 [in_i] Commo n [facility] weight 2022-12-16 15:20:00 304 [lb_av] Comm on [facility] temperature 2022-12-16 15:20:00 97.8 [degF] Com [facility] bmi 2022-12-16 15:20:00 41.23 kg/m2 Comm on [facility] blood pressure systolic 2022-12-16 15:20:00 125 mm[Hg] [facility] blood pressure diastolic 2022-12-16 15:20:00 89 mm[Hg] [facility] height 2022-05-13 08:50:00 72 [in_i] Commo n [facility] weight 2022-05-13 08:50:00 300 [lb_av] Comm on [facility] temperature 2022-05-13 08:50:00 98.4 [degF] Com [facility] bmi 2022-05-13 08:50:00 40.68 kg/m2 Comm on [facility] blood pressure systolic 2022-05-13 08:50:00 125 mm[Hg] [facility] blood pressure diastolic 2022-05-13 08:50:00 85 mm[Hg] [facility] height 2022-01-16 08:00:00 72 [in_i] Commo n [facility] weight 2022-01-16 08:00:00 304.1 [lb_av] Co mmon [facility] temperature 2022-01-16 08:00:00 97.4 [degF] Com [facility] bmi 2022-01-16 08:00:00 41.24 kg/m2 Comm on [facility] oximetry 2022-01-16 08:00:00 98 % Commo n [facility] respiratory rate 2022-01-16 08:00:00 17 /min Common [facility] blood pressure systolic 2022-01-16 08:00:00 135 mm[Hg] [facility] blood pressure diastolic 2022-01-16 08:00:00 79 mm[Hg] [facility] height 2021-11-13 10:40:00 72 [in_i] Commo n [facility] weight 2021-11-13 10:40:00 307.1 [lb_av] Co [facility] bmi 2021-11-13 10:40:00 41.65 kg/m2 Comm on [facility] height 2021-10-15 13:50:00 72 [in_i] Commo n [facility] weight 2021-10-15 13:50:00 307.1 [lb_av] Co [facility] temperature 2021-10-15 13:50:00 98.4 [degF] Com mon [facility] bmi 2021-10-15 13:50:00 41.65 kg/m2 Comm on [facility] oximetry 2021-10-15 13:50:00 96 % Commo n [facility] respiratory rate 2021-10-15 13:50:00 17 /min [facility] blood pressure systolic 2021-10-15 13:50:00 132 mm[Hg] [facility] blood pressure diastolic 2021-10-15 13:50:00 82 mm[Hg] [facility] Systolic blood pressure 2020-06-10 16:29:00 147 mm[Hg] [facility] Diastolic blood pressure 2020-06-10 16:29:00 101 mm[Hg] [facility] Heart rate 2020-06-10 16:29:00 79 /min [facility] Respiratory rate 2020-06-10 16:29:00 17 /min [facility] Oxygen saturation in Arterial blood by Pulse oximetry 2020-06-10 16:29:00 96 /min [facility] Body temperature 2020-06-10 15:56:00 38.28 Zoe [facility] Body height 2020-06-10 15:56:00 182.9 cm [facility] Body weight 2020-06-10 15:56:00 136.079 kg [facility] BMI 2020-06-10 15:56:00 40.69 kg/m2 [facility] Systolic blood pressure 2020-06-10 16:29:00 147 mm[Hg] [facility] Diastolic blood pressure 2020-06-10 16:29:00 101 mm[Hg] [facility] Heart rate 2020-06-10 16:29:00 79 /min [facility] Respiratory rate 2020-06-10 16:29:00 17 /min [facility] Oxygen saturation in Arterial blood by Pulse oximetry 2020-06-10 16:29:00 96 /min [facility] Body temperature 2020-06-10 15:56:00 38.28 Zoe [facility] Body height 2020-06-10 15:56:00 182.9 cm [facility] Body weight 2020-06-10 15:56:00 136.079 kg [facility] BMI 2020-06-10 15:56:00 40.69 kg/m2 [facility] Procedures Procedure Date / Time Performed Performing Clinicia n Source NOTICE OF PRIVACY PRACTICES 2020-06-10 15:39:42 Doctor Unassigned, [place] [facility] CONSENT/REFUSAL FOR DIAGNOSIS AND TREATMENT 2020-06-10 15:39:21 Doctor Unassigned, [place] [facility] Encounters Start Date/Time End Date/Time Encounter Type Admission Type Attending Clinicians Care Facility Care Department Encounter ID Source 2022-12-12 10:52[id number] [facility] 2022-09-09 15:56[facility] [id number] [facility] 2022-01-15 11:07[facility] [id number] [facility] 2021-12-11 14:29:14 [facility] [id number] [facility] 2021-12-11 14:28:58 [facility] [id number] [facility] 2021-12-11 13:22:50 Outpatient Torre, Jad [facility] [id number] [facility] 2021-12-11 12:44:56 Outpatient Torre, Jad [facility] [id number] [facility] 2021-12-11 12:39:48 Outpatient Torre, Jad [facility] [id number] [facility] 2021-12-11 12:39:19 Outpatient Torre, Jad [facility] [id number] [facility] 2021-12-11 12:37:07 [facility] [id number] [facility] 2021-12-11 12:12:57 Outpatient Torre[facility] [id number] [facility] 2021-12-11 12:12:47 Outpatient Torre, [facility] [id number] [facility] 2021-12-11 12:05:15 Outpatient Torre, [facility] [id number] [facility] 2021-12-11 12:04:46 Outpatient Torre, Jad [facility] [id number] [facility] 2023-03-10 00:00:00 2023-03-10 00:00:00 (WELLNESS) Wellness Visit [facility] [id number] [facility] 2023-03-10 00:00:00 2023-03-10 00:00:00 (TEL) [facility] [id number] [facility] 2022-12-16 00:00:00 2022-12-16 00:00:00 OFFICE VISIT ESTAB PT LEVEL 4 [facility] [id number] [facility] 2022-09-09 00:00:00 2022-09-09 00:00:00 (TEL) [facility] [id number] [facility] 2022-07-07 00:00:00 2022-07-07 00:00:00 (TEL) [facility] [id number] [facility] 2022-06-30 00:00:00 2022-06-30 00:00:00 (TEL) [facility] [id number] [facility] 2022-05-13 00:00:00 2022-05-13 00:00:00 OFFICE VISIT ESTAB PT LEVEL 4 [facility] [id number] [facility] 2022-04-29 00:00:00 2022-04-29 00:00:00 (TEL) [facility] [id number] [facility] 2022-01-16 00:00:00 2022-01-16 00:00:00 PREV VISIT EST AGE 40-64 [facility] [id number] [facility] 2022-01-15 00:00:00 2022-01-15 00:00:00 (TEL) [facility] [id number] [facility] 2021-11-13 00:00:00 2021-11-13 00:00:00 OFFICE VISIT EST PT LEVEL 3 [facility] [id number] [facility] 2021-11-12 00:00:00 2021-11-12 00:00:00 (TEL) [facility] [id number] [facility] 2021-10-15 00:00:00 2021-10-15 00:00:00 OFFICE VISIT ESTAB PT LEVEL 4 [facility] [id number] [facility] 2021-09-04 00:00:00 2021-09-04 00:00:00 (TEL) [facility] [id number] [facility] 2021-05-31 00:00:00 2021-05-31 00:00:00 Outpatient [facility] [id number] [facility] 2021-03-22 00:00:00 2021-03-22 00:00:00 Outpatient [facility] [id number] [facility] 2021-03-18 00:00:00 2021-03-18 00:00:00 Outpatient [facility] [id number] [facility] 2021-01-28 00:00:00 2021-01-28 00:00:00 Outpatient [facility] [id number] [facility] 2020-10-29 00:00:00 2020-10-29 00:00:00 Outpatient [facility] [id number] [facility] 2020-09-27 00:00:00 2020-09-27 00:00:00 Outpatient [facility] [id number] [facility] 2020-06-12 00:00:00 2020-06-12 00:00:00 Patient Secure Msg Doctor Unassigned, [place] [facility] [id number] [facility] 2020-06-10 11:06:15 2020-06-10 11:47:00 Emergency [facility] [id number] 2020-06-10 11:06:15 2020-06-10 11:47:00 Emergency [facility] [id number] [facility] 2020-06-10 10:39:00 2020-06-10 10:39:00 Emergency X [facility] ERT [id number] [facility]
--- NOTE | 2023-11-26 12:19 | RAD REPORT ---
EXAM DESCRIPTION: Keith Single View11/26/2023 12:07 pm CLINICAL HISTORY: Chest pain COMPARISON: August 2023 FINDINGS: Area of scarring within the left lung base. The lungs appear clear of acute infiltrate. The heart is normal size IMPRESSION: No acute abnormalities displayed
--- NOTE | 2023-11-26 12:22 | RAD REPORT ---
EXAM DESCRIPTION: US - Abdomen Exam Limited - 11/26/2023 12:15 pm CLINICAL HISTORY: Abdominal pain. COMPARISON: None. FINDINGS: Multiple gallstones. Gallbladder wall is not thickened. Common bile duct 8 millimeters IMPRESSION: Cholelithiasis without evidence of cholecystitis Dilatation of the common bile duct
[2023-11-26] MEDS ORDERED: FAMOTIDINE 20 MG/2 ML VIAL IV ONE (12:26)
[2023-11-26] MEDS ORDERED: NA CHLORIDE 0.9% 1,000 ML ONE (12:26)
[2023-11-26 12:44] LABS: RBC Red Blood Cell Count 4.48 M/uL (4.33-5.43)
[2023-11-26 12:45] LABS: Absolute Lymphocytes (CBC) 1.5 K/uL (0.7-4.9); Hematocrit 39.5 % (39.6-49.0); MCV 88.2 fL (80-100); MPV 8.9 fL (7.6-11.3); Platelets 175 thou/uL (152-406)
[2023-11-26 13:04] LABS: Albumin 3.5 g/dL (3.4-5.0); Bilirubin Total 1.1 mg/dL (0.2-1.0); Potassium 3.9 mEq/L (3.5-5.1); Protein, Total 8.1 g/dL (6.4-8.2); Troponin High Sensitivity 4.2 pg/mL (<58.9)
--- NOTE | 2023-11-26 13:49 | EDPHYS ---
Physician Documentation [facility] Name: Seferino Park Jr Age: 43 yrs Sex: Male : 1980 Arrival Date: 11/26/2023 Time: 11:22 Bed 6 Private MD: ED Physician Jesus Aguirre HPI: 11/26 11:59 This 43 yrs old Male presents to ER via Ambulatory with complaints of rn Epigastric Pain. 11:59 The patient presents with abdominal pain in the epigastric area. Onset: The rn symptoms/episode began/occurred just prior to arrival. The symptoms do not radiate. Associated signs and symptoms: Pertinent positives: Diaphoresis, Pertinent negatives: blood in stools, chest pain, constipation, diarrhea, dysuria, fever, hematuria, shortness of breath, testicular pain, vomiting, vomiting blood. The symptoms are described as crampy. Modifying factors: The symptoms are alleviated by nothing, the symptoms are aggravated by nothing. Severity of pain: At its worst the pain was moderate in the emergency department the pain has resolved. The patient has not experienced similar symptoms in the past. Patient reports mid epigastric pain that started suddenly while at work after eating some cheese and meat tray. Reports associated diaphoresis. No radiation. No vomiting. No chest pain or shortness of breath. Pain lasted approximately 2 hours and has resolved on its own. Patient also states was out of town on vacation last week and had concurrent viral illness. Family member had flu. Feels like got over that illness. No family history of early cardiac disease. Patient feels fine currently and denies any pain in any location.. Historical: - Allergies: 11:31 No Known Allergies; aa5 - PMHx: 11:31 Anxiety; Depression; Hyperlipidemia; Hypertension; aa5 - PSHx: 11:31 retinal detachment SX x 2; testicular surgery; aa5 - Immunization history:: Adult Immunizations unknown. - Social history:: Smoking status: Patient denies any tobacco usage or history of. - Family history:: not pertinent. - Hospitalizations: : No recent hospitalization is reported. ROS: 11:59 Constitutional: Negative for fever, chills, and weight loss, Cardiovascular: Negative rn for chest pain, palpitations, and edema, Respiratory: Negative for shortness of breath, cough, wheezing, and pleuritic chest pain, Abdomen/GI: Positive for abdominal pain that has now resolved Back: Negative for injury and pain, : Negative for injury, bleeding, discharge, and swelling, MS/Extremity: Negative for injury and deformity, Skin: Negative for injury, rash, and discoloration, Neuro: Negative for headache, weakness, numbness, tingling, and seizure, Exam: 11:59 Constitutional: This is a well developed, well nourished patient who is awake, alert, rn and in no acute distress. Cardiovascular: Regular rate and rhythm. No pulse deficits. Respiratory: No increased work of breathing, no retractions or nasal flaring. Abdomen/GI: Soft, nontender Skin: Warm, dry MS/ Extremity: Pulses equal, no cyanosis. Neuro: Awake and alert, GCS 15 12:29 ECG was reviewed by the Attending Physician. rn Vital Signs: 11:32 BP 117 / 80; Pulse 54; Resp 16 S; Temp 97.5(TE); Pulse Ox 97% on R/A; Weight 118.84 kg aa5 (R); Height 6 ft. 0 in. (R); 12:38 BP 111 / 76; Pulse 62; Resp 18; Pulse Ox 100% on R/A; Pain 0/10; ld1 13:28 BP 113 / 75; Pulse 63; Resp 18; Pulse Ox 100% on R/A; ld1 17:56 BP 141 / 94; Pulse 55; Resp 15; Pulse Ox 100% ; ko1 11:32 Body Mass Index 35.53 (118.84 kg, 182.88 cm) aa5 12:38 Pain Scale: Adult ld1 MDM: 11:39 Patient medically screened. rn 13:39 ED course: Called Dr. Wagner for consultation, unavailable at this time, is in OR. . rn 13:46 Differential diagnosis: cholecystitis, Cholelithiasis, gastritis, gastroesophageal rn reflux disease, non-specific abd pain, pancreatitis, Peptic Ulcer Disease. Data reviewed: vital signs, nurses notes, lab test result(s), radiologic studies, ultrasound, and as a result, I will admit patient. Consideration of Admission/Observation Patient was admitted/placed on observation. Escalation of care including admission/observation considered. Management of patient was discussed with the following: Chief Unit Forester: Dr. Wagner, requests MRCP and admission to hospitalist service. . Counseling: I had a detailed discussion with the patient and/or guardian regarding the historical points, exam findings, and any diagnostic results supporting the discharge/admit diagnosis, lab results, radiology results, the need for further work-up and treatment in the hospital. Response to treatment: the patient's symptoms have markedly improved after treatment, and as a result, I will admit patient. 16:12 ED course: MRCP normal. Consulted with Dr. Wagner who still wants patient admitted rn overnight given abnormal LFTs. Patient most likely passed gallbladder duct stone as dilation of CBD now normal on MRCP. Plan is to keep overnight, if LFTs improve will be discharged home if worsen will need cholecystectomy.. 11/26 11:49 Order name: CBC with Diff; Complete Time: 13:06 rn 11/26 11:49 Order name: CMP; Complete Time: 13:06 rn 11/26 11:49 Order name: Lipase; Complete Time: 13:06 rn 11/26 11:49 Order name: Troponin High Sensitivity; Complete Time: 13:06 rn 11/26 17:23 Order name: Urinalysis w/ reflexes EDSC 11/26 17:24 Order name: CBC with Automated Diff EDSC 11/26 17:24 Order name: CBC with Automated Diff EDSC 11/26 17:24 Order name: Comprehensive Metabolic Panel EDSC 11/26 17:24 Order name: Comprehensive Metabolic Panel EDSC 11/26 17:24 Order name: Magnesium EDSC 11/26 17:24 Order name: Magnesium EDSC 11/26 17:24 Order name: Phosphorus EDSC 11/26 17:24 Order name: Phosphorus EDSC 11/26 11:49 Order name: CT Abd/Pelvis - IV Contrast Only; Complete Time: 15:57 rn 11/26 11:49 Order name: US Abdomen Limited; Complete Time: 13:06 rn 11/26 11:49 Order name: XRAY Chest (1 view); Complete Time: 13:06 rn 11/26 13:50 Order name: Cholangiogram; Complete Time: 15:57 EDSC 11/26 11:49 Order name: EKG; Complete Time: 11:49 rn 11/26 17:17 Order name: CONS Physician Consult EDSC 11/26 11:42 Order name: EKG - Nurse/Tech; Complete Time: 11:42 aa5 11/26 11:49 Order name: IV Saline Lock; Complete Time: 12:35 rn 11/26 11:49 Order name: Labs collected and sent; Complete Time: 12:35 rn 11/26 13:47 Order name: NPO; Complete Time: 13:51 rn EC:29 Rate is 58 beats/min. Rhythm is regular. QRS [place] is Normal. [place] interval is normal. QRS rn interval is normal. QT interval is normal. No Q waves. T waves are Normal. No ST changes noted. Clinical impression: Sinus bradycardia. Interpreted by me. Reviewed by me. Administered Medications: 12:36 Drug: NS 0.9% IV 1000 ml IV at 1 bolus Per protocol; 1000 mL bolus Route: IV; Rate: 1 ld1 bolus; Site: right forearm; 12:37 Drug: Famotidine IVP 20 mg IVP once; dilute with 10 mL 0.9% NaCl; give over 2 minutes ld1 Route: IVP; Site: right forearm; 14:20 Drug: Piperacillin-Tazobactam IVPB 3.375 grams IVPB once over 60 mins; (mix in NS 100 ko1 mL) Route: IVPB; Infused Over: 60 mins; Site: right forearm; Disposition Summary: 11/26/23 13:49 Hospitalization Ordered Notes: Hospitalization Status: Observation rn Provider: Ethan Melendez rn Location: Telemetry/MedSurg (observation) rn Condition: Stable rn Problem: new rn Symptoms: have improved rn Bed/Room Type: Standard rn Room Assignment: 229(11/26/23 17:34) em1 Diagnosis - Other cholelithiasis with obstruction rn Forms: - Medication Reconciliation Form rn - SBAR form rn - Leadership Thank You Letter rn Signatures: Dispatcher [employer] Jesus Navarro MD MD rn Martinez, Eric em1 Elidia Muñiz RN RN aa5 Marguerite Mckoy RN RN ld1 Adina Medina RN RN ko1 Corrections: (The following items were deleted from the chart) 11:51 11:49 EKG - Nurse/Tech ordered. rn joy5 12:00 11:59 Patient reports mid epigastric pain that started suddenly while at work after rn eating some cheese and meat tray. Reports associated diaphoresis. No radiation. No vomiting. No chest pain or shortness of breath. Pain lasted approximately 2 hours and has resolved on its own. Patient also states was out of town on vacation last week and had concurrent viral illness. Family member had flu. Feels like got over that illness.. rn 17:34 13:49 rn em1
--- NOTE | 2023-11-26 13:49 | ER ---
Nurse's Notes [facility] Name: Seferino Park Jr Age: 43 yrs Sex: Male : 1980 Arrival Date: 11/26/2023 Time: 11:22 Bed 6 Private MD: Diagnosis: Other cholelithiasis with obstruction Presentation: 11/26 11:32 Chief complaint: Patient states: acute epigastric pain. Pt states "I was just sitting aa5 at my desk at work and I started having abdominal pain and started sweating". Coronavirus screen: At this time, the client does not indicate any symptoms associated with coronavirus-19. Ebola Screen: Patient denies travel to an Ebola-affected area in the 21 days before illness onset. Initial Sepsis Screen: Does the patient meet any 2 criteria? No. Patient's initial sepsis screen is negative. Does the patient have a suspected source of infection? No. Patient's initial sepsis screen is negative. Risk Assessment: Do you want to hurt yourself or someone else? Patient reports no desire to harm self or others. Onset of symptoms was November 26, 2023. 11:32 Method Of Arrival: Ambulatory aa5 11:32 Acuity: ALEXIS 3 aa5 Triage Assessment: 17:57 General: Appears in no apparent distress. Behavior is calm, cooperative, appropriate ko1 for age. Historical: - Allergies: 11:31 No Known Allergies; aa5 - PMHx: 11:31 Anxiety; Depression; Hyperlipidemia; Hypertension; aa5 - PSHx: 11:31 retinal detachment SX x 2; testicular surgery; aa5 - Immunization history:: Adult Immunizations unknown. - Social history:: Smoking status: Patient denies any tobacco usage or history of. - Family history:: not pertinent. - Hospitalizations: : No recent hospitalization is reported. Screenin:38 [facility] ED Fall Risk Assessment (Adult) History of falling in the last 3 months, ld1 including since admission No falls in past 3 months (0 pts). Abuse screen: Denies threats or abuse. Denies injuries from another. Nutritional screening: No deficits noted. Tuberculosis screening: No symptoms or risk factors identified. Assessment: 12:38 Reassessment: See triage assessment. Pain: Denies pain. Neuro: Level of Consciousness ld1 is awake, alert, obeys commands, Oriented to person, place, time, situation. Cardiovascular: Capillary refill < 3 seconds Patient's skin is warm and dry. Respiratory: Airway is patent Respiratory effort is even, unlabored. GI: Pt reported epigastric pain 1 hour ago that went away. Vital Signs: 11:32 BP 117 / 80; Pulse 54; Resp 16 S; Temp 97.5(TE); Pulse Ox 97% on R/A; Weight 118.84 kg aa5 (R); Height 6 ft. 0 in. (R); 12:38 BP 111 / 76; Pulse 62; Resp 18; Pulse Ox 100% on R/A; Pain 0/10; ld1 13:28 BP 113 / 75; Pulse 63; Resp 18; Pulse Ox 100% on R/A; ld1 17:56 BP 141 / 94; Pulse 55; Resp 15; Pulse Ox 100% ; ko1 11:32 Body Mass Index 35.53 (118.84 kg, 182.88 cm) aa5 12:38 Pain Scale: Adult ld1 ED Course: 11:31 Patient arrived in ED. aa5 11:31 Arm band placed on. aa5 11:33 Triage completed. aa5 11:39 Jesus Aguirre MD is Attending Physician. rn 11:42 EKG done, by ED staff, reviewed by Jesus Aguirre MD. aa5 12:09 XRAY Chest (1 view) In Process Unspecified. EDMS 12:17 US Abdomen Limited In Process Unspecified. EDMS 12:34 Inserted saline lock: 20 gauge in right forearm, using aseptic technique. Blood zm collected. 12:35 Lipase Sent. zm 12:35 CMP Sent. zm 12:35 CBC with Diff Sent. zm 12:35 Troponin High Sensitivity Sent. zm 12:38 Marguerite Mckoy, RN is Primary Nurse. ld1 12:38 Patient has correct armband on for positive identification. Placed in gown. Bed in low ld1 position. Call light in reach. Side rails up X2. night monitor on. Pulse ox on. NIBP on. Door closed. Noise minimized. Warm blanket given. 12:38 No provider procedures requiring assistance completed. ld1 13:48 Ethan Melendez is Hospitalizing Provider. rn 13:53 CT Abd/Pelvis - IV Contrast Only In Process Unspecified. EDMS 14:53 Cholangiogram In Process Unspecified. EDMS 17:56 Provided Education on: nA. ko1 17:56 Patient admitted, IV remains in place. ko1 Administered Medications: 12:36 Drug: NS 0.9% IV 1000 ml IV at 1 bolus Per protocol; 1000 mL bolus Route: IV; Rate: 1 ld1 bolus; Site: right forearm; 12:37 Drug: Famotidine IVP 20 mg IVP once; dilute with 10 mL 0.9% NaCl; give over 2 minutes ld1 Route: IVP; Site: right forearm; 14:20 Drug: Piperacillin-Tazobactam IVPB 3.375 grams IVPB once over 60 mins; (mix in NS 100 ko1 mL) Route: IVPB; Infused Over: 60 mins; Site: right forearm; Medication: 12:38 VIS not applicable for this client. ld1 Outcome: 13:49 Decision to Hospitalize by Provider. rn 17:56 Admitted to Med/surg accompanied by tech, via wheelchair, room 229, with chart, ko1 17:56 Condition: stable 17:56 Instructed on the need for admit, 18:23 Patient left the ED. ko1 Signatures: Dispatcher [employer] EDMS Jesus Aguirre MD MD rn Calderon, Audri, RN RN aa5 Marguerite Mckoy RN RN santa1 Harmony Calabrese Kathy, RN RN ko1
[2023-11-26] MEDS ORDERED: NA CHLORIDE 0.9% 100 ML ONE (14:09)
[2023-11-26] MEDS ORDERED: PIPERACIL/TAZO 3.375 GM VIAL IV ONE (14:10)
--- NOTE | 2023-11-26 15:15 | RAD REPORT ---
EXAM DESCRIPTION: CT - Abdomen Pelvis W Contrast - 11/26/2023 1:52 pm CLINICAL HISTORY: epigastric abd pain;Abd pain COMPARISON: No comparisons TECHNIQUE: Thin cut axial CT imaging of the abdomen and pelvis was performed following intravenous a dministration of 100 mL Isovue 300. Multiplanar reformats were generated and reviewed. All CT scans are performed using dose optimization technique as appropriate and may include automated exposure control or mA/KV adjustment according to patient size. FINDINGS: Scattered patchy left basilar airspace opacities. The liver, spleen, and pancreas show no suspicious findings. Gallbladder and biliary tree are also wi thout suspicious finding. Symmetric renal function is seen with no hydronephrosis or suspicious renal mass. Bilateral small cor tical hypoattenuating lesions, suggestive of cysts although some are difficult to characterize given size, largest measuring 1.7 cm at the right lower pole. No dilated bowel loops or bowel wall thickening. Appendix is unremarkable. Mild colonic diverticulosi s. No free air, free fluid or inflammatory stranding. No hernia, mass or bulky lymphadenopathy. The u rinary bladder is without significant finding. No suspicious bony findings. IMPRESSION: Scattered patchy left basilar airspace opacities, concerning for pneumonia. No acute intra-abdominal process.
--- NOTE | 2023-11-26 15:26 | RAD REPORT ---
EXAM DESCRIPTION: MRI - Cholangiogram - 11/26/2023 3:11 pm CLINICAL HISTORY: Dilated CBD COMPARISON: Abdomen Pelvis W Contrast dated 11/26/2023; Abdomen Exam Limited dated 11/26/2023 TECHNIQUE: Multiplanar multisequence MRI of the abdomen, obtained without IV contrast, utilizing M COASTAL TUG MATE sequences. FINDINGS: Normally distended gallbladder with no pericholecystic fluid or edema, or appreciable gall bladder filling defects to suggest stones. No intrahepatic biliary ductal dilation. Common bile duct is normal in caliber, 4 millimeter. No filling defects to suggest choledocholithiasi s. Smooth tapering at the ampulla. Main pancreatic duct is not dilated. The visualized aspects of the liver, spleen, adrenal glands, pancreas, and kidneys are unremarkable. Visualized aspects of the bowel are unremarkable. No suspicious osseous lesions. Trace bilateral pleural effusions IMPRESSION: Normal MR cholangiogram.
[2023-11-26] MEDS ORDERED: ONDANSETRON 4 MG/2 ML VIAL IV PRN (17:15)
[2023-11-26] MEDS ORDERED: MORPHINE 2 MG/ML SYR IV PRN (17:15)
[2023-11-26] MEDS ORDERED: ACETAMINOPHEN 325 MG TABLET PO PRN (17:15)
--- NOTE | 2023-11-26 17:39 | P.HP ---
Certification for Inpatient Patient admitted to: Observation With expected LOS: <2 Midnights Practitioner: I am a practitioner with admitting privileges, knowledge of patient current condition, hospital course, and medical plan of care. Services: Services provided to patient in accordance with Admission requirements found in Title 42 Section 412.3 of the Code of Federal Regulations Patient History Date of Service: 11/26/23 Reason for admission: Abdominal pain History of Present Illness: 43-year-old gentleman with a history of hypertension, prediabetes, anxiety and depression presented to the emergency department due to sudden onset abdominal pain, severe intensity, no vomiting. Patient denies any antecedent illness. His abdominal pain resolved completely in the ER. CT abdomen and pelvis done was unremarkable. Blood work showed elevated LFT with bilirubin of 1.1, AST of 119 and ALT of 89. Liver ultrasound demonstrated multiple gallstones and dilated common bile duct. General surgery Dr. Wagner was contacted who recommended MRCP. MRCP showed no dilated common bile duct or CBD stone, or gallstone. Patient is being monitored overnight with LFT monitoring. Dr. Wagner have plans to follow and evaluate for need for cholecystectomy. Patient was asymptomatic during my examination in the ED. Allergies No Known Allergies Allergy (Unverified 12/06/16 07:00) - Past Medical/Surgical History -: Prediabetes -: Anxiety and depression -: Hypertension -: Eye surgery -: hernia surgery - Family History Mother -: Hypertension - Social History Smoking Status: Never smoker Alcohol use: Yes Place of Residence: Home Review of Systems Other: He denied any fever or chills. He denies any diarrhea or constipation. Except as documented, all other systems reviewed and negative. Physical Examination - Physical Exam General: Alert, In no apparent distress, Oriented x3 HEENT: Mucous membr. moist/pink Neck: Supple, JVD not distended Respiratory: Clear to auscultation bilaterally, Normal air movement Cardiovascular: No edema, Regular rate/rhythm, Normal S1 S2, No murmurs Capillary refill: <2 Seconds Gastrointestinal: Normal bowel sounds, Soft and benign, Non-distended, No tenderness Musculoskeletal: No swelling, No tenderness Integumentary: No rashes, No cyanosis Neurological: Normal speech, Normal strength at 5/5 x4 extr, Cranial nerves 3-12 intact Lymphatics: No axilla or inguinal lymphadenopathy - Studies Laboratory Data (last 24 hrs) 11/26/23 11/26/23 12:33 12:33 WBC 7.00 Hgb 13.5 L Hct 39.5 L Plt Count 175 Sodium 138 Potassium 3.9 BUN 11 Creatinine 0.94 Glucose 91 Total Bilirubin 1.1 H AST 113 H ALT 89 H Alkaline Phosphatase 82 Lipase 42 Assessment and Plan - Problems (Diagnosis) (1) Cholelithiasis Current Visit: Yes Status: Acute (2) Elevated LFTs Current Visit: Yes Status: Acute - Plan Place patient under observation. Supportive measures with IV hydration. Monitor LFT. General surgery Dr. Wagner consulted. N.p.o. at midnight. Pain management as needed. Resume home medications for hypertension. - Advance Directives Does patient have a Living Will: No Does patient have a Durable POA for Healthcare: No
[2023-11-26] MEDS: NA CHLORIDE 0.9% 1,000 ML IV SCH (18:36)
[2023-11-26 18:58] VITALS: BMI 38.6
[2023-11-26] MEDS: INSULIN REGULAR (HUMAN) 100 UNIT/ML SQ SCH (19:53)
[2023-11-26] MEDS ORDERED: BENZONATATE 100 MG CAP PO PRN (20:57)
[2023-11-26] MEDS: Levofloxacin 750mg IV 750 MG/150 ML BAG IV SCH (22:27)
[2023-11-26 23:14] LABS: Specific Gravity 1.023 (1.005-1.030); Urine Bilirubin NEGATIVE (Negative); Urine Blood Negative (Negative); Urine Clarity Clear (Clear); Urine Color Yellow (Yellow); Urine Glucose NEGATIVE (Negative); Urine Protein NEGATIVE (Negative); Urine Urobilinogen Normal (Normal)
[2023-11-27 03:26] LABS: Absolute Lymphocytes (CBC) 1.8 K/uL (0.7-4.9); Hematocrit 37.6 % (39.6-49.0); MCV 88.4 fL (80-100); MPV 9.2 fL (7.6-11.3); Platelets 177 thou/uL (152-406); RBC Red Blood Cell Count 4.26 M/uL (4.33-5.43)
[2023-11-27 04:00] LABS: Bilirubin Total 1.7 mg/dL (0.2-1.0); Magnesium 1.9 mg/dL (1.6-2.4); Phosphorus 2.6 mg/dL (2.5-4.9); Potassium 3.6 mEq/L (3.5-5.1); Protein, Total 7.4 g/dL (6.4-8.2)
[2023-11-27] MEDS ORDERED: KCL 20 MEQ/100 mL IVPB 20 MEQ/100 ML BAG IV SCH (06:00)
[2023-11-27] MEDS: NA CHLORIDE 0.9% 1,000 ML IV SCH ×2 (06:48→16:10)
[2023-11-27] MEDS: INSULIN REGULAR (HUMAN) 100 UNIT/ML SQ SCH ×4 (07:30→21:00)
[2023-11-27] MEDS ORDERED: PIPER TAZO 3.375 GM in NA CHLORIDE 0.9% 100 ML IV ONE (07:45)
[2023-11-27] MEDS ORDERED: BUPIVACAINE 0.25% PF 30 ML VIAL ONE (07:55)
[2023-11-27] MEDS ORDERED: SUCCINYLCHOLINE 20 MG/ML (10 ML) IV ONE (08:16)
[2023-11-27] MEDS ORDERED: ROCURONIUM 50 MG/5 ML VIAL IV ONE ×2 (08:48→09:12)
[2023-11-27] MEDS ORDERED: NEOSTIGMINE 1 MG/ML -10 ML VIAL ONE (08:48)
[2023-11-27] MEDS ORDERED: ONDANSETRON 4 MG/2 ML VIAL ONE (08:48)
[2023-11-27] MEDS ORDERED: LIDOCAINE 2% MPF 5 ML VIAL ONE (08:48)
[2023-11-27] MEDS ORDERED: GLYCOPYRROLATE 0.2 MG/ML SYR ONE (08:48)
[2023-11-27] MEDS ORDERED: MIDAZOLAM HCL 2 MG/2 ML INJ ONE (08:48)
[2023-11-27] MEDS ORDERED: FENTANYL CITR 100 MCG/2 ML ONE ×2 (08:48→08:49)
[2023-11-27] MEDS ORDERED: propofoL 200 MG/20 ML VIAL IV ONE (08:48)
[2023-11-27] MEDS ORDERED: EPHEDRINE SULF 50 MG/ML VIAL ONE (09:06)
[2023-11-27] MEDS ORDERED: dexAMETHasone 4 MG/ML VIAL ONE (09:15)
[2023-11-27] MEDS: Ringers Lactate 1,000 ML IV ONE ×2 (09:26→09:27)
--- NOTE | 2023-11-27 10:23 | P.OP ---
Preoperative diagnosis: Choledocholithiasis with cholecystitis Postoperative diagnosis: Choledocholithiasis with cholecystitis Primary procedure: Laparoscopic cholecystectomy with ICG Cholangiography Secondary procedure: Intraoperative Contrast Cholangiography with interpretatoin Anesthesia: GETA + Local Estimated blood loss: >10cc Specimen: Gallbladder Findings: Stone Delivered through cystic duct @ confluence Complications: Other (liver superficial laceration) Implants: Delbert Hemostatic Matrix Poweder Transferred to: Recovery Room Condition: Good
[2023-11-27] MEDS: HYDROMORPHONE HCL 1 MG/ML INJ ONE ×2 (10:40→10:45)
[2023-11-27 10:56] VITALS: O2SAT 97
--- NOTE | 2023-11-27 13:25 | EKG ---
Test Date: 2023-11-26 Test Time: 11:38:46 [employer] Inspector: HOMA MEASUREMENT RESULTS: Intervals: Rate: 58 FL: 162 QRSD: 86 QT: 440 QTc: 431 [place]: P: 12 FL: 162 QRS: 62 T: 47 INTERPRETIVE STATEMENTS: Sinus bradycardia Otherwise normal ECG Compared to ECG 09/10/2023 20:19:52 Sinus rhythm no longer present Myocardial infarct finding no longer present Electronically Signed On 11-27-23 13:22:54 COLOR CONTROL OPERATOR by Ovidio Oscar
[2023-11-27] MEDS: HYDROCODONE/APAP 7.5/325 MG TAB PO PRN ×2 (13:41→21:08)
--- NOTE | 2023-11-27 14:22 | RAD REPORT ---
EXAM DESCRIPTION: RAD - Cholangiogram Oper-Xray Or - 11/27/2023 2:13 pm CLINICAL HISTORY: LAP BEV WITH IOC COMPARISON: <Comparisons> FINDINGS: Cystic duct injection was performed by operating surgeon. Contrast is seen in the common d uct without evidence of retained stone. Total fluoro time: 0.7 minutes
--- NOTE | 2023-11-27 16:13 | P.PN ---
Subjective Date of Service: 11/27/23 Chief Complaint: Abdominal pain Patient's LFTs trended up significantly, Status post lap cholecystectomy and IntraOp cholangiogram with stone extraction today. No recorded fever. Physical Examination - Vital Signs Temperature: 97 F Blood Pressure: 126/83 Pulse: 62 Respirations: 16 Pulse Ox (%): 93 - Physical Exam General: Alert, In no apparent distress, Oriented x3, Obese HEENT: Mucous membr. moist/pink Neck: JVD not distended Respiratory: Clear to auscultation bilaterally, Normal air movement Cardiovascular: No edema, Regular rate/rhythm, Normal S1 S2 Gastrointestinal: Normal bowel sounds, Soft and benign, Non-distended, Other (clean trocar wounds) Musculoskeletal: No swelling Integumentary: No rashes, No cyanosis Neurological: Normal strength at 5/5 x4 extr Assessment And Plan - Current Problems (Diagnosis) (1) Cholelithiasis Current Visit: Yes Status: Acute (2) Elevated LFTs Current Visit: Yes Status: Acute (3) Essential hypertension Current Visit: Yes Status: Acute (4) Left lower lobe pneumonia Current Visit: Yes Status: Acute - Plan Status post lap cholecystectomy, IntraOp angiogram with stone extraction Continue supportive measures with IV hydration. Monitor LFT. General surgery Dr. Wagner with appreciated. Diet resumed postcholecystectomy. Continue IV Levaquin for left lower lobe pneumonia. Patient given empiric IV Zosyn prior to cholecystectomy Pain management as needed. Continue home medications for hypertension. Fingerstick glucose within normal range.
--- NOTE | 2023-11-27 20:58 | OP ---
Date of Procedure: 11/27/2023 Surgeon: Walter Wagner MD, Preoperative Diagnosis: Choledocholithiasis with cholecystitis. Postoperative Diagnosis: Choledocholithiasis with cholecystitis. Procedure Performed: 1.Laparoscopic cholecystectomy with indocyanine green cholangiography. 2.Intraoperative contrast cholangiography with interpretation. 3.Stone extraction from cystic duct and common duct confluence. Anesthesia: General endotracheal plus local with 0.25% Marcaine. Estimated Blood Loss: Less than 10 cc. Specimen: Gallbladder. Findings: Stone was delivered through the cystic duct confluence discovered on attempt to perform ch olangiography. Complications: A surgical garment fitter/assist an instrument across the liver undersurfa ce of the liver adjacent to the hepatic fossa causing a superficial laceration, which was controlled with electrocautery. Implants: Delbert hemostatic matrix powder. Disposition: The patient transferred to recovery room in good condition. Procedure In Detail: After informed consent was obtained, the patient was brought to the operating r oom, prepped and draped in the usual sterile fashion after adequate anesthesia was achieved. I anest hetized the area of the supraumbilical skin down through subcutaneous tissues. A 5-mm 0-degree optic al trocar was introduced in the abdomen without complication. Insufflation was obtained to 15 mmHg a t this time. There was no injury to vital structures upon entry into the abdomen. Three additional trocars were placed, one in the epigastrium, one in the right upper quadrant, one in the right mid ab domen. All of these were similarly anesthetized and sharply incised. A 5-mm trocar was placed under direct visualization without incident or complication. The umbilical trocar was then upsized to a 1 2 mm under direct visualization without incident or complication. The patient was positioned head up right-side up position. Ratcheted grasper was used to grasp the patient's gallbladder, placed it to wards the patient's right shoulder, dissection continued down toward the Rica pouch of the gallbl adder. There was significant inflammatory change to the anterior surface of the gallbladder near the Rica pouch with significant adipose tissue. I dissected the adipose tissue using electrocautery down to discover 2 structures identified both as cystic duct and cystic artery. These structures we re encircled and skeletonized. A critical view of safety was obtained at this point. Indocyanine gr een cholangiography was performed at this point, which showed the cystic duct common duct confluence and helped to confirm the anatomy as described above. I made a small cristina incision at the confluence of the cystic duct gallbladder junction and I ultimately advanced a catheter under some difficulty a t this point. I flushed out the catheter and attempted to pass catheter. At this point, the cathete r was unable to be passed beyond a mm and there was some fullness in the area of the cystic duct dist ally. I then proceeded to remove the catheter. I milked the cystic duct and the common duct in a re trograde fashion and ultimately delivered a small stone which I believe was causing partial obstructi on of this area near the confluence of the cystic duct common duct junction. At this point, the chol angiogram catheter was replaced and passed more easily. The balloon was inflated and cholangiogram w as performed at this point, showing no filling defects at this point consistent with a clean duct sys tem. As such, I suspect the patient had choledocholithiasis with a stone impacted near the cystic du ct common duct confluence. There was brisk and easily filling of the duodenum at this point and the intrahepatic tree appeared normal without any obvious filling defects. At this point, the cholangiog radha portion was discontinued. Double titanium clips were placed on the proximal side and singly on the distal side of the cystic duct and cystic artery. These structures were ligated using Endo Díaz rs. At this point, I grasped the cystic duct and I placed a 2-0 Vicryl Endoloop suture just proximal to the proximal clip but not narrowing the common duct at this point. The gallbladder was then marleny rachel from the hepatic fossa at this point without incident. After this point, I then proceeded to irr igate the area and as described above my surgical technology instructor moved an instrument across while removing th e instrument across the undersurface of the liver and caused a superficial laceration of liver medial to the hepatic fossa approximately 2 cm in size. At this point, I irrigated the area. There was mi nimal bleeding which was venous in appearance. I then fulgurated the bed using electrocautery, inspe cted the area for hemostasis which was achieved at this point. I irrigated the area multiple times a nd under desufflation pressure, inspected the area, however, I suctioned out the area, performed indo cyanine green cholangiography once again to confirm no leakage of bile was appreciated, inspected, th e clips were found all to be in good anatomic position. No hemostasis required. At this point, I greer ctioned out the remaining effluent. At this point, I sprayed Delbert hemostatic powder in the region of the laceration as well as the hepatic fossa and no discoloration was appreciated. The powder kraig ined brisk and white without any evidence of bile leakage or bleeding. At this point, I then placed the omentum up into the hepatic fossa. The patient positioned back in neutral position. I then clos ed the umbilical trocar site using a Devan-Raegan suture passer with 0 Vicryl in a fashion to appr oximate the tissues. The abdomen was completely desufflated under direct visualization without compl ication. Remaining trocars removed. All skin incisions were then copiously irrigated and closed wit h a 4-0 Monocryl in a running fashion. Dermabond was placed over top. The patient tolerated the pro cedure well without incident or complication and transferred to PACU in good condition. All counts w ere correct at the end of the case. ROBY/JANIS Voice ID: [id number] Report ID: [id number]
[2023-11-27] MEDS ORDERED: HOME MED 1 EA UNK (Pravastatin Sodium [Pravastatin Sodium] 20 MG Tablet) PO SCH (21:00)
[2023-11-27] MEDS ORDERED: AMITRIPTYLINE 25 MG TAB PO SCH (21:00)
[2023-11-27] MEDS ORDERED: ATORVASTATIN 10 MG TAB PO SCH (21:00)
[2023-11-27] MEDS: Levofloxacin 750mg IV 750 MG/150 ML BAG IV SCH (21:09)
[2023-11-28] MEDS: NA CHLORIDE 0.9% 1,000 ML IV SCH (00:19)
[2023-11-28 03:13] LABS: Absolute Lymphocytes (CBC) 1.2 K/uL (0.7-4.9); Hematocrit 35.3 % (39.6-49.0); Lymphocytes % 25.3 % (15.3-44.8); MCV 88.1 fL (80-100); MPV 9.4 fL (7.6-11.3); Platelets 214 thou/uL (152-406)
[2023-11-28 03:37] LABS: Albumin 2.7 g/dL (3.4-5.0); Bilirubin Total 0.7 mg/dL (0.2-1.0); Magnesium 1.6 mg/dL (1.6-2.4); Phosphorus 2.5 mg/dL (2.5-4.9); Potassium 3.8 mEq/L (3.5-5.1); Protein, Total 6.8 g/dL (6.4-8.2)
[2023-11-28] MEDS: INSULIN REGULAR (HUMAN) 100 UNIT/ML SQ SCH ×2 (07:30→11:30)
[2023-11-28] MEDS: HYDROCODONE/APAP 7.5/325 MG TAB PO PRN (08:26)
[2023-11-28] MEDS: POTASS/SODIUM PHOSPHATE 1 PKT POWD.PACK PO SCH ×2 (08:27→09:48)
[2023-11-28] MEDS ORDERED: ENOXAPARIN 40 MG/0.4 ML SQ SCH (09:00)
[2023-11-28] MEDS ORDERED: AMLODIPINE 10 MG TAB PO SCH (09:00)
[2023-11-28] MEDS ORDERED: MAGNESIUM SULFATE 1 gm IVPB 1 GM/100 ML BAG IV ONE (09:00)
[2023-11-28] MEDS ORDERED: ASCORBIC ACID 500 MG TABLET PO SCH (09:00)
[2023-11-28] MEDS ORDERED: POTASSIUM CL SA 10 MEQ TAB PO ONE (09:00)
[2023-11-28] MEDS ORDERED: HOME MED 1 EA UNK (Escitalopram Oxalate [Lexapro] 10 MG Tablet) PO SCH (09:00)
[2023-11-28] MEDS ORDERED: ESCITALOPRAM 20 MG TAB PO SCH (09:00)
--- NOTE | 2023-11-28 11:44 | P.DS ---
Admission Date: 11/27/23 Discharge Date: 11/28/23 Disposition: ROUTINE DISCHARGE Discharge Condition: FAIR Reason for Admission: Abdominal pain - Problems (1) Cholelithiasis Current Visit: Yes Status: Acute (2) Elevated LFTs Current Visit: Yes Status: Acute (3) Essential hypertension Current Visit: Yes Status: Acute (4) Left lower lobe pneumonia Current Visit: Yes Status: Acute Brief History of Present Illness: 43-year-old gentleman with a history of hypertension, prediabetes, anxiety and depression presented to the emergency department due to sudden onset abdominal pain, severe intensity, no vomiting. Patient denies any antecedent illness. His abdominal pain resolved completely in the ER. CT abdomen and pelvis done was unremarkable. Blood work showed elevated LFT with bilirubin of 1.1, AST of 119 and ALT of 89. Liver ultrasound demonstrated multiple gallstones and dilated common bile duct. General surgery Dr. Wagner was contacted who recommended MRCP. MRCP showed no dilated common bile duct or CBD stone, or gallstone. Patient hospitalized for LFT monitoring evaluations for need for cholecystectomy. Patient was asymptomatic during my examination in the ED. Hospital Course: Patient's LFTs trended up significantly. He was evaluated by general surgery Dr. Wagner Status post lap cholecystectomy, IntraOp angiogram done with stone extraction LFTs trended down Diet resumed postcholecystectomy. And treated with IV Levaquin for left lower lobe pneumonia. Patient given empiric IV Zosyn prior to cholecystectomy Continued home medications for hypertension. Fingerstick glucose within normal range. Dr. Stacie Wagner evaluated patient this morning and deemed him stable for discharge. Discharged with Augmentin. Vital Signs/Physical Exam: Temp Pulse Resp BP Pulse Ox 98.2 F 64 16 141/90 H 96 11/28/23 08:00 11/28/23 08:00 11/28/23 08:00 11/28/23 08:00 11/28/23 08:00 General: Alert, In no apparent distress, Oriented x3 HEENT: Mucous membr. moist/pink Neck: Supple, JVD not distended Respiratory: Clear to auscultation bilaterally, Normal air movement Cardiovascular: No edema, Regular rate/rhythm, Normal S1 S2 Gastrointestinal: Soft and benign, Non-distended, Other (Trocar wounds) Musculoskeletal: No swelling, No warmth Integumentary: No rashes, No cyanosis Neurological: Normal strength at 5/5 x4 extr Laboratory Data at Discharge: WBC 4.90 thou/uL (4.3-10.9) 11/28/23 02:23 Hgb 12.1 g/dL (13.6-17.9) L 11/28/23 02:23 Hct 35.3 % (39.6-49.0) L 11/28/23 02:23 Plt Count 214 thou/uL (152-406) 11/28/23 02:23 Sodium 136 mEq/L (136-145) 11/28/23 02:23 Potassium 3.8 mEq/L (3.5-5.1) 11/28/23 02:23 BUN 6 mg/dL (7-18) L 11/28/23 02:23 Creatinine 0.86 mg/dL (0.70-1.30) 11/28/23 02:23 Glucose 110 mg/dL (74-106) H 11/28/23 02:23 Phosphorus 2.5 mg/dL (2.5-4.9) 11/28/23 02:23 Magnesium 1.6 mg/dL (1.6-2.4) 11/28/23 02:23 Total Bilirubin 0.7 mg/dL (0.2-1.0) 11/28/23 02:23 AST 302 U/L (15-37) H 11/28/23 02:23 ALT 666 U/L (16-61) H 11/28/23 02:23 Alkaline Phosphatase 147 U/L (45-117) H 11/28/23 02:23 Lipase 11 U/L (13-75) L 11/28/23 02:23 Home Medications: Amitriptyline HCl 25 mg PO BEDTIME 11/26/23 Amlodipine Besylate 10 mg PO DAILY 11/26/23 Ascorbic Acid [Vitamin C*] 500 mg PO DAILY 11/26/23 Escitalopram Oxalate [Lexapro] 10 mg PO DAILY 11/26/23 Lisinopril/Hydrochlorothiazide [Zestoretic 20-25 mg Tablet] 1 each PO NOON 11/26/23 Nebivolol HCl [Bystolic*] 20 mg PO NOON 11/26/23 [place]-3/Dha/Epa/Fish Oil [Fish Oil 500 mg Softgel] 1 cap PO NOON 11/26/23 Pravastatin Sodium 20 mg PO BEDTIME 11/26/23 Tirzepatide [Mounjaro] 16 units SQ EVERY 7TH DAY 11/26/23 Amox/Clavulanate [Augmentin 875-125 Tab] 1 each PO BID #10 tab 11/28/23 Hydrocodone 7.5/APAP 325 [[place] 7.5/325 mg*] 1 tab PO Q6H PRN #15 tab 11/28/23 New Medications: Amox/Clavulanate [Augmentin 875-125 Tab] 1 each PO BID #10 tab Hydrocodone 7.5/APAP 325 [[place] 7.5/325 mg*] 1 tab PO Q6H PRN #15 tab PRN Reason: Pain Scale 5-7 (Moderate) Diet: ADA Activity: Ad melany Followup: Walter Wagner MD [ACTIVE - CAN ADMIT] - 1 Week Beatriz Chowdhury FNP [Primary Care Provider] - Time spent managing pt's care (in minutes): 33
[2023-11-28] MEDS ORDERED: lisinopriL 20 MG TAB PO SCH (12:00)
[2023-11-28] MEDS ORDERED: DOCOSAHEXANOIC AC/EPA 1000 MG PO SCH (12:00)
[2023-11-28] MEDS ORDERED: FISH OIL PO SCH (12:00)
[2023-11-28] MEDS ORDERED: OMEGA PO SCH (12:00)
[2023-11-28] MEDS ORDERED: LISINOPRIL PO SCH (12:00)
[2023-11-28] MEDS ORDERED: HYDROCHLOROTHIAZIDE PO SCH (12:00)
[2023-11-28] MEDS ORDERED: NEBIVOLOL HCL 20 MG TABLET PO SCH (12:00)
[2023-11-28] MEDS ORDERED: EPA PO SCH (12:00)
[2023-11-28] MEDS ORDERED: hydroCHLOROthiazide 25 MG TAB PO SCH (12:00)
[2023-11-28] MEDS ORDERED: DHA PO SCH (12:00)
[2023-11-28 12:45] VITALS: BP 132/91; TEMP 97.6
== END 2023-11-28 12:41 | disposition home or self-care (01) | DRG 417 ==
LOC: ER 11:22 → 2ND 17:34 → INTOOBSV 17:34 → UNDOADMOB 17:34 → OBSVTOIN 17:34 → 2ND 11-27 16:01 → OBSVTOIN 11-27 16:01
PROVIDERS: ADMIT Internal Medicine; ATTEND Internal Medicine
PROC: 0FC98ZZ Extirpation of Matter from Common Bile Duct, Via Natural or Artificial Opening Endoscopic (ICD-10-PCS; 2023-11-27)
PROC: 0FC88ZZ Extirpation of Matter from Cystic Duct, Via Natural or Artificial Opening Endoscopic (ICD-10-PCS; 2023-11-27)
PROC: BF121ZZ Fluoroscopy of Gallbladder using Low Osmolar Contrast (ICD-10-PCS; 2023-11-27)
PROC: 0FT44ZZ Resection of Gallbladder, Percutaneous Endoscopic Approach (ICD-10-PCS; principal; 2023-11-27 09:35)
DX: K80.40 Calculus of bile duct with cholecystitis, unspecified, without obstruction (principal); J18.9 Pneumonia, unspecified organism; I10 Essential (primary) hypertension; E78.5 Hyperlipidemia, unspecified; E66.9 Obesity, unspecified; R79.89 Other specified abnormal findings of blood chemistry; Z68.38 Body mass index [BMI] 38.0-38.9, adult
CPT/HCPCS: 36415; 71045; 74177; 74181; 74300; 76705; 80053; 81003; 82947; 83690; 83735; 84100; 84484; 85025; 88304; 93005; 96374; 96375; 99285; G0378; J1100; J1170; J1650; J2001; J2250; J2270; J2405; J2543; J2704; J2710; J3010; J3475; J3480; J7030; J7120; Q9967